=== PATIENT | male | born 1945 | race Hispanic/Latino ===

== ENCOUNTER 2016-06-19 18:05 | Inpatient (IN) | payer MEDICARE ==
--- NOTE | 2016-06-19 18:50 | Emergency Department Report ---
Addendum entered and electronically signed by CAM WYATT PA 06/20/16 16:06 : Blank Doc - Documentation Documentation: Addendum to physical exam: This is a 71-year-old male. Original Note: Chief Complaint: Weakness Stated Complaint: CANCER MEDS/COLD SX Time Seen by Provider: 06/19/16 18:46 - HPI History of Present Illness: Patient here reports that he is feeling weak and sleepy. He said he has left breast cancer and this is the fifth time that it's come back. He said Dr. Sommer who is his oncologist started him on Ibrance and symptoms started when he started taking this medication 20 days ago. He reports that he does not have any appetite. Dr. Sommer told patient to come to the emergency room. He denies any pain. Pain enough runny nose with some coughing. Denies any fever or chills. Denies any vomiting or diarrhea. PT has right Subclavian port - ROS Review of Systems: All systems are negative unless stated in HPI above - Exam Vital Signs: Vital Signs 06/19/16 18:30 Temperature 97.6 F Pulse Rate 114 H Respiratory 16 Rate Blood Pressure 134/96 O2 Sat by Pulse 100 Oximetry Physical Exam: This is a extend 11-year-old frail-looking man who is in no acute distress. Skin: Pale with poor turgor. Mouth: Lips are dry. CV: S1-S2, tachycardic at 114. The rhythm. Right port noted. MSE screening note: Focused history and physical exam performed. Due to findings the following was ordered:see mdm ED Medical Decision Making - Medical Decision Making Medical decision making: Patient seen by provider in triage area. Appropriate protocol activated and patient to main ED to be seen by physician. ED Disposition for MSE Condition: Stable
[2016-06-19 19:40] LABS: Eosinophils % (Auto) 0.9 % (0.0-4.3); Hematocrit 34.9 % (35.5-45.6); Hemoglobin 11.9 gm/dl (11.8-15.2); Mean Corpuscular HGB Conc 34 % (32-34); Mean Corpuscular Hemoglobin 27 pg (28-32); Mean Corpuscular Volume 78 fl (84-94); Red Blood Count 4.45 M/mm3 (3.65-5.03); Red Cell Distribution Width 13.8 % (13.2-15.2); White Blood Count 2.7 K/mm3 (4.5-11.0)
[2016-06-19 19:52] LABS: Alanine Aminotransferase 7 units/L (7-56); Albumin 3.9 g/dL (3.9-5); Albumin/Globulin Ratio 1.4 %; Alkaline Phosphatase 103 units/L (35-129); Anion Gap 21 mmol/L; BUN/Creatinine Ratio 15.45; Bilirubin,Total 0.7 mg/dL (0.1-1.2); Blood Urea Nitrogen 17 mg/dL (9-20); Calcium 8.7 mg/dL (8.4-10.2); Carbon Dioxide 23 mmol/L (22-30); Chloride 92.8 mmol/L (98-107); Glucose 133 mg/dL (75-100); Potassium 3.5 mmol/L (3.6-5.0); Sodium 133 mmol/L (137-145); Total Protein 6.7 g/dL (6.3-8.2)
[2016-06-19 20:08] LABS: Magnesium 1.9 mg/dL (1.7-2.3); Phosphorous 2.3 mg/dL (2.5-4.5)
[2016-06-19 20:33] LABS: Platelet Count 99 K/mm3 (140-440)
--- NOTE | 2016-06-20 04:27 | Emergency Department Report ---
ED General Adult HPI - General Chief complaint: Weakness Stated complaint: CANCER MEDS/COLD SX Time Seen by Provider: 06/19/16 18:46 Source: patient, RN notes reviewed Mode of arrival: Wheelchair Limitations: Physical Limitation - History of Present Illness Initial comments: This is a 71-year-old male, previously unknown to me. Has a history of breast cancer. Status post chemotherapy. Patient has a right-sided thoracic port. His oncologist is Dr. Sommer. Patient presents to the ER with generalized weakness, fatigue. Symptoms are constant. They've been going on for the past 3 days. They have no relieving factors. To me, the patient denies chest pain, abdominal pain, shortness of breath, fevers or chills. He is typically able to ambulate with a walker, and complete his activities of daily living without difficulty. He denies irritative and obstructive urinary symptoms. He reports a decline in his functional status over the past week. He is now in a wheelchair because of global weakness. There is no bladder or bowel retention or incontinence. There is no saddle anesthesia. -: Gradual, days(s) Severity scale (0 -10): 0 Consistency: constant Improves with: none Worsens with: none Associated Symptoms: loss of appetite, malaise, weakness. denies: confusion, diaphoresis, fever/chills - Related Data Home Medications Medication Instructions Recorded Confirmed Last Taken Aspirin [Aspirin TAB] 325 mg PO QDAY 06/20/16 06/20/16 Unknown Escitalopram Oxalate [Lexapro] 20 mg PO DAILY 06/20/16 06/20/16 Unknown Gabapentin [Neurontin] 300 mg PO QID PRN 06/20/16 06/20/16 Unknown Ibrance 300 mg PO DAILY 06/20/16 06/20/16 Unknown LORazepam [Ativan] 1 mg PO QHS PRN 06/20/16 06/20/16 Unknown Simvastatin [Zocor TAB] 20 mg PO QHS 06/20/16 06/20/16 Unknown Allergies Allergy/AdvReac Type Severity Reaction Status Date / Time No Known Allergies Allergy Unverified 06/19/16 18:30 ED Review of Systems ROS: Stated complaint: CANCER MEDS/COLD SX Other details as noted in HPI Constitutional: malaise, weakness Eyes: denies: vision change ENT: denies: epistaxis Respiratory: see HPI Cardiovascular: as per HPI Gastrointestinal: denies: abdominal pain Genitourinary: denies: urgency, dysuria Musculoskeletal: denies: back pain Skin: denies: lesions Neurological: weakness ED Past Medical Hx - Medications Home Medications: Home Medications Medication Instructions Recorded Confirmed Last Taken Type Aspirin [Aspirin TAB] 325 mg PO QDAY 06/20/16 06/20/16 Unknown History Escitalopram Oxalate [Lexapro] 20 mg PO DAILY 06/20/16 06/20/16 Unknown History Gabapentin [Neurontin] 300 mg PO QID PRN 06/20/16 06/20/16 Unknown History Ibrance 300 mg PO DAILY 06/20/16 06/20/16 Unknown History LORazepam [Ativan] 1 mg PO QHS PRN 06/20/16 06/20/16 Unknown History Simvastatin [Zocor TAB] 20 mg PO QHS 06/20/16 06/20/16 Unknown History ED Physical Exam - General Limitations: Physical Limitation General appearance: alert, in no apparent distress - Head Head exam: Present: atraumatic, normocephalic - Eye Eye exam: Present: normal appearance - ENT ENT exam: Present: normal exam, mucous membranes moist, normal external ear exam - Neck Neck exam: Present: normal inspection, full ROM. Absent: tenderness, meningismus - Respiratory Respiratory exam: Present: decreased breath sounds, other (right-sided thoracic wall port is noted). Absent: respiratory distress - Cardiovascular Cardiovascular Exam: Present: normal rhythm, tachycardia, normal heart sounds. Absent: systolic murmur, diastolic murmur, rubs, gallop - GI/Abdominal GI/Abdominal exam: Present: soft, normal bowel sounds. Absent: distended, tenderness, guarding, rebound, rigid, pulsatile mass - Rectal Rectal exam: Present: deferred - Extremities Exam Extremities exam: Present: normal inspection, full ROM, normal capillary refill , pedal edema. Absent: calf tenderness - Back Exam Back exam: Present: normal inspection, full ROM, paraspinal tenderness. Absent : tenderness, CVA tenderness (R), CVA tenderness (L), muscle spasm, vertebral tenderness - Neurological Exam Neurological exam: Present: alert, oriented X3, other (there is no facial droop. There is no facial droop. The tongue is midline. Extraocular movements are intact. Sensation is intact to light touch and pinprick and proprioception in 4 extremities. Downgoing plantar reflexes bilaterally. Extensor hallucis longus is intact bilaterally. Patient is able to lift both of his legs against gravity, however he is too weak to walk). Absent: motor sensory deficit - Psychiatric Psychiatric exam: Present: normal affect, normal mood - Skin Skin exam: Present: warm, dry, intact, normal color. Absent: rash ED Course Vital Signs 06/19/16 06/20/16 06/20/16 18:30 01:37 06:03 Temperature 97.6 F 97.6 F Pulse Rate 114 H 105 H 107 H Respiratory 16 18 10 L Rate Blood Pressure 134/96 Blood Pressure 160/106 [Right] O2 Sat by Pulse 100 100 96 Oximetry 06/20/16 06/20/16 06/20/16 06:22 07:00 07:27 Temperature Pulse Rate 100 H 99 H Respiratory 19 25 H Rate Blood Pressure 168/97 182/111 Blood Pressure [Right] O2 Sat by Pulse 100 96 96 Oximetry 06/20/16 06/20/16 06/20/16 08:01 09:00 09:36 Temperature Pulse Rate 102 H 110 H 108 H Respiratory 24 22 28 H Rate Blood Pressure 169/104 178/124 169/104 Blood Pressure [Right] O2 Sat by Pulse 95 96 Oximetry 06/20/16 06/20/16 06/20/16 10:00 11:00 12:00 Temperature Pulse Rate 105 H 105 H 108 H Respiratory 23 26 H 18 Rate Blood Pressure 134/84 155/98 167/115 Blood Pressure [Right] O2 Sat by Pulse 96 97 Oximetry 06/20/16 06/20/16 06/20/16 13:00 14:00 14:53 Temperature 98.8 F Pulse Rate 78 Respiratory Rate Blood Pressure 136/75 178/98 Blood Pressure [Right] O2 Sat by Pulse 96 Oximetry 06/20/16 06/20/16 06/20/16 15:00 16:00 17:00 Temperature Pulse Rate 95 H 99 H 100 H Respiratory 26 H 24 10 L Rate Blood Pressure 175/93 175/91 171/101 Blood Pressure [Right] O2 Sat by Pulse Oximetry 06/20/16 17:45 Temperature Pulse Rate 111 H Respiratory Rate Blood Pressure 171/101 Blood Pressure [Right] O2 Sat by Pulse Oximetry - Reevaluation(s) Reevaluation #1: 06/20/16 05:14 Differential diagnosis: Debility, urinary tract infection, pneumonia, chemotherapy side effect/iatrogenic effect Assessment and plan: 71-year-old male with global weakness. Chest x-ray suggests pneumonia. He is leukopenic. He is tachycardic. IV fluids, blood cultures, antibiotic therapy ordered. Chest x-ray demonstrates pneumonia. EKG is pending. Urinalysis is pending. Case is discussed with the Hospital physician, Dr. Davis, who accepts the patient to his service. ED Medical Decision Making - Lab Data Result diagrams: 06/19/16 19:15 06/19/16 19:15 Vital Signs 06/19/16 06/20/16 18:30 01:37 Temperature 97.6 F 97.6 F Pulse Rate 114 H 105 H Respiratory 16 18 Rate Blood Pressure 134/96 Blood Pressure 160/106 [Right] O2 Sat by Pulse 100 100 Oximetry Lab Results 06/19/16 06/19/16 06/19/16 Range/Units 19:15 19:15 19:15 WBC 2.7 L (4.5-11.0) K/mm3 RBC 4.45 (3.65-5.03) M/mm3 Hgb 11.9 (11.8-15.2) gm/dl Hct 34.9 L (35.5-45.6) % MCV 78 L (84-94) fl MCH 27 L (28-32) pg MCHC 34 (32-34) % RDW 13.8 (13.2-15.2) % Plt Count 99 L (140-440) K/mm3 Lymph % (Auto) 30.9 (13.4-35.0) % [place] % (Auto) 6.1 (0.0-7.3) % Eos % (Auto) 0.9 (0.0-4.3) % Baso % (Auto) 1.0 (0.0-1.8) % Lymph # 0.8 L (1.2-5.4) K/mm3 [place] # 0.2 (0.0-0.8) K/mm3 Eos # 0.0 (0.0-0.4) K/mm3 Baso # 0.0 (0.0-0.1) K/mm3 Seg Neutrophils % 61.1 (40.0-70.0) % Seg Neutrophils # 1.7 L (1.8-7.7) K/mm3 Sodium 133 L (137-145) mmol/L Potassium 3.5 L (3.6-5.0) mmol/L Chloride 92.8 L (98-107) mmol/L Carbon Dioxide 23 (22-30) mmol/L Anion Gap 21 mmol/L BUN 17 (9-20) mg/dL Creatinine 1.1 (0.8-1.5) mg/dL Estimated GFR > 60 ml/min BUN/Creatinine Ratio 15.45 % Glucose 133 H (75-100) mg/dL Calcium 8.7 (8.4-10.2) mg/dL Phosphorus 2.3 L (2.5-4.5) mg/dL Magnesium 1.9 (1.7-2.3) mg/dL Total Bilirubin 0.7 (0.1-1.2) mg/dL AST 16 (5-40) units/L ALT 7 (7-56) units/L Alkaline Phosphatase 103 (35-129) units/L Total Protein 6.7 (6.3-8.2) g/dL Albumin 3.9 (3.9-5) g/dL Albumin/Globulin Ratio 1.4 % Blood Type Antibody Screen 06/19/16 Range/Units 19:15 WBC (4.5-11.0) K/mm3 RBC (3.65-5.03) M/mm3 Hgb (11.8-15.2) gm/dl Hct (35.5-45.6) % MCV (84-94) fl MCH (28-32) pg MCHC (32-34) % RDW (13.2-15.2) % Plt Count (140-440) K/mm3 Lymph % (Auto) (13.4-35.0) % [place] % (Auto) (0.0-7.3) % Eos % (Auto) (0.0-4.3) % Baso % (Auto) (0.0-1.8) % Lymph # (1.2-5.4) K/mm3 [place] # (0.0-0.8) K/mm3 Eos # (0.0-0.4) K/mm3 Baso # (0.0-0.1) K/mm3 Seg Neutrophils % (40.0-70.0) % Seg Neutrophils # (1.8-7.7) K/mm3 Sodium (137-145) mmol/L Potassium (3.6-5.0) mmol/L Chloride (98-107) mmol/L Carbon Dioxide (22-30) mmol/L Anion Gap mmol/L BUN (9-20) mg/dL Creatinine (0.8-1.5) mg/dL Estimated GFR ml/min BUN/Creatinine Ratio % Glucose (75-100) mg/dL Calcium (8.4-10.2) mg/dL Phosphorus (2.5-4.5) mg/dL Magnesium (1.7-2.3) mg/dL Total Bilirubin (0.1-1.2) mg/dL AST (5-40) units/L ALT (7-56) units/L Alkaline Phosphatase (35-129) units/L Total Protein (6.3-8.2) g/dL Albumin (3.9-5) g/dL Albumin/Globulin Ratio % Blood Type AB POSITIVE Antibody Screen Negative - EKG Data 06/20/16 05:37 Limited by motion artifact. Sinus tachycardia, 106 bpm, poor R-wave progression , abnormal EKG, not morphologically consistent with STEMI. QTC 494 ms. - Radiology Data Radiology results: report reviewed, image reviewed Chest x-ray demonstrates right sided thoracic wall port. Left-sided infiltrate/ pneumonia/effusion is noted. Critical care attestation.: If time is entered above; I have spent that time in minutes in the direct care of this critically ill patient, excluding procedure time. ED Disposition Clinical Impression: Pneumonia, Leukopenia, History of breast cancer, Weakness Disposition: OP ADMITTED IP TO THIS HOSP Is pt being admited?: Yes Does the pt Need Aspirin: No Condition: Good
--- NOTE | 2016-06-20 05:07 | XRay Report ---
FINAL REPORT PROCEDURE: XR CHEST ROUTINE 2V TECHNIQUE: A portable AP chest radiograph was obtained at 06/19/2016 19:17 (EST) . CPT 22291 HISTORY: Weakness COMPARISON: No prior studies are available for comparison. FINDINGS: Heart: The heart is slightly enlarged.. Mediastinum/Vessels: Normal. Lungs/Pleural space: There are infiltrates and a small effusion at the left lung base. The right lung is clear and expanded. There are no pneumothoraces.. Bony thorax: No acute osseous abnormality. Life support devices: There is a right-sided Port-A-Cath. The tip is in the right internal jugular vein.. IMPRESSION: The heart is slightly enlarged.. There are infiltrates and a small effusion at the left lung base. The right lung is clear and expanded. There are no pneumothoraces.. There is a right-sided Port-A-Cath. The tip is in the right internal jugular vein.. .
[2016-06-20] MEDS ORDERED: LEVAQUIN 750MG/150ML 150 ML IV ONE (05:08)
[2016-06-20] MEDS ORDERED: NACL 0.9% 1000 ML IV ONE (06:00)
[2016-06-20 07:05] LABS: Bilirubin,Urine NEG (Negative); Blood,Urine SM (Negative); Ketones,Urine TR mg/dL (Negative); Leukocyte Esterase,Urine NEG (Negative); Mucus,Urine FEW /HPF; Nitrite,Urine NEG (Negative)
--- NOTE | 2016-06-20 07:51 | History and Physical Report ---
History of Present Illness History of present illness: 71 YO Male with Breast Cancer S/P Chemotherapy, Malnutrition presents to ED for evaluation. Pt states that he has been experiencing weakness, fatigue, and nonproductive cough for the past 3 days. Pt denies fever, chills, CP, Palpitations, NVD. Past History Past Medical History: cancer Past Surgical History: Other (Right Chest port) Social history: . denies: smoking, alcohol abuse, prescription drug abuse Family history: hypertension Medications and Allergies Allergies Allergy/AdvReac Type Severity Reaction Status Date / Time No Known Allergies Allergy Unverified 06/19/16 18:30 Home Medications Medication Instructions Recorded Confirmed Last Taken Type Aspirin [Aspirin TAB] 325 mg PO QDAY 06/20/16 06/20/16 Unknown History Escitalopram Oxalate [Lexapro] 20 mg PO DAILY 06/20/16 06/20/16 Unknown History Gabapentin [Neurontin] 300 mg PO QID PRN 06/20/16 06/20/16 Unknown History Ibrance 300 mg PO DAILY 06/20/16 06/20/16 Unknown History LORazepam [Ativan] 1 mg PO QHS PRN 06/20/16 06/20/16 Unknown History Simvastatin [Zocor TAB] 20 mg PO QHS 06/20/16 06/20/16 Unknown History Review of Systems All systems: negative Constitutional: fatigue, weakness Exam - Constitutional Vitals: Temp Pulse Resp BP Pulse Ox 97.6 F 100 H 19 168/97 96 06/20/16 01:37 06/20/16 07:00 06/20/16 07:00 06/20/16 07:00 06/20/16 07:00 General appearance: Present: mild distress, cachectic - EENT Eyes: Present: PERRL ENT: hearing intact, clear oral mucosa - Neck Neck: Present: supple, normal ROM - Respiratory Respiratory effort: normal Respiratory: bilateral: diminished - Cardiovascular Rhythm: regular Heart Sounds: Present: S1 & S2 Peripheral Pulses: within normal limits - Abdominal General gastrointestinal: Present: soft, non-tender, non-distended, normal bowel sounds Male genitourinary: Present: normal - Integumentary Integumentary: Present: clear, warm, dry - Musculoskeletal Musculoskeletal: generalized weakness - Psychiatric Psychiatric: appropriate mood/affect, cooperative - Neurologic Neurologic: CNII-XII intact Results - Labs CBC & Chem 7: 01/04/17 19:15 06/19/16 19:15 Labs: Abnormal lab results 06/19/16 06/19/16 06/19/16 Range/Units 19:15 19:15 19:15 WBC 2.7 L (4.5-11.0) K/mm3 Hct 34.9 L (35.5-45.6) % MCV 78 L (84-94) fl MCH 27 L (28-32) pg Plt Count 99 L (140-440) K/mm3 Lymph # 0.8 L (1.2-5.4) K/mm3 Seg Neutrophils # 1.7 L (1.8-7.7) K/mm3 Sodium 133 L (137-145) mmol/L Potassium 3.5 L (3.6-5.0) mmol/L Chloride 92.8 L (98-107) mmol/L Glucose 133 H (75-100) mg/dL Phosphorus 2.3 L (2.5-4.5) mg/dL Total Creatine Kinase (55-170) units/L 06/20/16 Range/Units 04:58 WBC (4.5-11.0) K/mm3 Hct (35.5-45.6) % MCV (84-94) fl MCH (28-32) pg Plt Count (140-440) K/mm3 Lymph # (1.2-5.4) K/mm3 Seg Neutrophils # (1.8-7.7) K/mm3 Sodium (137-145) mmol/L Potassium (3.6-5.0) mmol/L Chloride (98-107) mmol/L Glucose (75-100) mg/dL Phosphorus (2.5-4.5) mg/dL Total Creatine Kinase 287 H (55-170) units/L Assessment and Plan - Patient Problems (1) Pneumonia Current Visit: Yes Status: Acute Plan to address problem: Pneumonia protocol: IV abs, supportive care, blood cultures, supplemental oxygen , pulmonary toilet (2) History of breast cancer Current Visit: Yes Status: Chronic Plan to address problem: S/P chemotherapy. continue current care. (3) Weakness Current Visit: Yes Status: Acute Plan to address problem: supportive care, (4) DVT prophylaxis Current Visit: Yes Status: Acute
[2016-06-20] MEDS ORDERED: TYLENOL PO PRN (08:00)
--- NOTE | 2016-06-20 09:12 | Admit Criteria Form ---
Admission Criteria Documentation: PULMONARY DISEASE GRG Clinical Indications for Admission to Inpatient Care ( Place 'X' for any and all applicable criteria): Hospital admission is needed for appropriate care of the patient because of ANY ONE of the following(1): [ ]I. Impending or actual respiratory arrest ( Use Respiratory Failure Criteria for severe respiratory disease and long-term mechanical ventilation patients) (4) [ ]II. Severe airflow or ventilation abnormalities (not responsive to emergency and observation care treatment as appropriate) as indicated by ANY ONE of the following(5)(6)(7)(8) : [ ]a) PCO2 > 42 mm Hg (5.6 kPa) and pH < 7.35 (new) [ ]b) Documented PCO2 increase > 5 mm Hg (0.7 kPa) from disease baseline [ ]c) Airflow measurements[A] < 60% of previous best or predicted ( e.g., PEF <300 L/minute) despite intensive emergent treatment[B] [ ]d) Required respiratory treatments that are performable only in acute inpatient setting [ ]III. Severe respiratory findings (not responsive to emergency and observation care treatment as appropriate) including ANY ONE of the following(5)(8)(9): [ ]a) Respiratory distress as indicated by ALL of the following(5)(10): [ ]i) Patient with ANY ONE of the following: [ ]1) Dyspnea (difficulty breathing) [ ]2) Abnormal breathing pattern (eg, chest retractions) [ ]3) Tachypnea [ ]4) Other evidence of difficulty breathing [ ]ii) Evidence of respiratory compromise indicated by ANY ONE of the following: [ ]1) Hypoxemia [ ]2) Altered mental status [ ]3) Other evidence of respiratory compromise (eg, pulmonary edema on chest x-ray) [ ]b) Stridor [ ]c) Gross hemoptysis(11) [ ]d) Acute cyanosis [X ]IV. High-risk pulmonary infection as indicated by ANY ONE of the following (19)(20)(21)(22): [ ]a) Temperature less than 95 degrees F(35 degrees C) or greater than 103.1 degrees F(39.5 degrees C) [ ]b) Hemodynamic instability that remains after emergency or observation level care (as appropriate) [ ]c) Immunocompromised patient (eg, AIDS, post transplant, neutropenic) [ ]d) History of severe COPD [ ]e) History of severely symptomatic congestive heart failure [ ]f) Other high-risk comorbidity (eg, poorly controlled diabetes, cirrhosis, chronic renal insufficiency) [ ]g) Hypoxemia (new) [ X]h) Outpatient, observation, or recovery facility therapy has failed, is not appropriate, or is not feasible [ ]V. Severe atelectasis or lung collapse(15)(16) [ ]. Tuberculosis requiring inpatient treatment as indicated by ANY ONE of the following(17)(18): [ ]a) New positive acid-fast bacilli sputum smear [ ]b) Positive acid-fast bacilli smear (under current treatment), with ANY ONE of the following: [ ]i) Unexposed household contacts [ ]ii) Infants or immunosuppressed household contacts [ ]iii) Patient unable or unwilling to avoid exposing others [ ]iv) Severe immunocompromised patient (eg, AIDS, post transplant, neutropenic) [ ]VII. Empyema or lung abscess(13)(14) [ ]VIII. Severe pulmonary arterial hypertension or pulmonary vascular disease requiring inpatient care indicated by ANY ONE of the following(24)(25): [ ]a) Initiation or change of vasodilators (IV, subcutaneous, or inhaled) or other vasoactive medications needed [ ]b) IV anticoagulation needed (eg, immediate anticoagulation necessary, alternatives not appropriate) [ ]c) Arterial or pulmonary artery catheter monitoring needed due to infusion or other treatment [ ]IX. Chronic lung disease with severe deterioration (not responsive to emergency and observation care treatment as appropriate) as indicated by ANY ONE of the following (6)(12): [ ]a) SaO2 5% below baseline in patient with chronic hypoxemia [ ]b) New requirement for supplemental oxygen to keep SaO2 at baseline or acceptable level [ ]c) Required supplemental oxygen performable only in acute inpatient setting [ ]d) Severe airflow or ventilation abnormalities [ ]e) Rapid rate of exacerbation onset [ ]f) Previously mobile patient unable to walk between rooms [ ]g) Inability to eat or sleep due to dyspnea [ ]h) Altered mental status [ ]X. Cystic fibrosis with severe deterioration as indicated by ANY ONE of the following(26)(27): [ ]a) Severe exacerbation that does not respond to intensified home therapy [ ]b) Pneumonia [ ]c) Hemoptysis [ ]d) Atelectasis [ ]e) Pneumothorax [ ]f) Respiratory failure [ ]g) Severe exacerbation with patient unable to perform prescribed treatments at home [ ]XI. Severe right heart failure as indicated by ANY ONE of the following(24) (25): [ ]a) Increasing organ failure (eg, liver congestion with significant and worsening or new elevation of transaminases) [ ]b) Anasarca [ ]c) Angina that requires inpatient care (eg, not treatable in emergency or observation level of care) [ ]d) Respiratory distress [ ]e) Syncope [ ]f) SBP < 90 mm Hg (new) [ ]XII. Injury requiring inpatient care (medical) as indicated by ANY ONE of the following(28): [ ]a) Significant inhalation injury (eg, smoke inhalation, other toxic inhalation) (29)(30)(31) [ ]b) Airway obstruction that remains or is unstable after emergency or observation level care(32) [ ]c) Severe pain requiring acute inpatient management [ ]d) Lung contusion [ ]e) Bronchial tree injury [ ]f) Air or fat emboli(33) [ ]g) Other injury not treatable in emergency or observation level care (eg, hemothorax) (34) [ ]XIII. Pulmonary hemorrhage or significant hemoptysis(11)(35)(36) [ ]XIV. Inpatient palliative care needed[C](37)(38)(39)(40) [ ]XV. Complications of lung transplant (eg, rejection, failure, respiratory infection) (23) [ ]XVI. Pulmonary Disease and ANY ONE of the following: [ ]a) General Admission Criteria [ ]b) Pediatric General Admission Criteria The original [facility] [employer] content created by [facility] has been revised. The portions of the content which have been revised are identified through the use of italic text or in bold, and [facility] has neither reviewed nor approved the modified material. All other unmodified content is copyright [facility]. Please see references footnoted in the original [facility] edition 2016 Admission Criteria Met: Yes
[2016-06-20] MEDS: NACL 0.45% 1000 ML 1,000 ML IV SCH (12:28)
[2016-06-20] MEDS: APRESOLINE IV PRN (17:45)
[2016-06-20] MEDS ORDERED: APRESOLINE ONE (17:51)
--- NOTE | 2016-06-20 19:36 | Event Note ---
Date: 06/20/16 Patient's an ER in no acute distress continue current therapy.
[2016-06-20] MEDS: ZOCOR PO SCH (22:30)
[2016-06-21] MEDS: ATIVAN PO PRN (00:05)
[2016-06-21] MEDS: NEURONTIN PO PRN ×2 (00:05→12:57)
[2016-06-21 05:50] LABS: Hemoglobin 10.8 gm/dl (11.8-15.2); Mean Corpuscular HGB Conc 35 % (32-34); Mean Corpuscular Hemoglobin 27 pg (28-32); Mean Corpuscular Volume 79 fl (84-94); Red Blood Count 3.95 M/mm3 (3.65-5.03); Red Cell Distribution Width 13.6 % (13.2-15.2)
[2016-06-21 06:07] LABS: Blood Urea Nitrogen 9 mg/dL (9-20); Calcium 8.4 mg/dL (8.4-10.2); Carbon Dioxide 21 mmol/L (22-30); Glucose 104 mg/dL (75-100)
[2016-06-21 06:20] LABS: Platelet Count 74 K/mm3 (140-440)
[2016-06-21 06:25] LABS: White Blood Count 1.9 K/mm3 (4.5-11.0)
[2016-06-21 07:51] LABS: Anion Gap 19 mmol/L; Chloride 98.4 mmol/L (98-107); Potassium 3.2 mmol/L (3.6-5.0); Sodium 135 mmol/L (137-145)
[2016-06-21] MEDS ORDERED: K-DUR PO ONE ×2 (09:22→13:00)
[2016-06-21] MEDS: LEVAQUIN 500MG/100ML 100 ML IV SCH (12:57)
[2016-06-21] MEDS: ASPIRIN PO SCH (12:58)
--- NOTE | 2016-06-21 13:56 | Progress Note ---
Assessment and Plan Assessment and plan: Patient is a 42-year-old man with history of bilateral leg ulcers, functional quadriplegia, malnutrition and breast cancer status post chemotherapy under the care of her oncologist, Dr. Eulalio Sommer who presents with worsening nonproductive cough and shortness of breath. (1) Pneumonia, most likely aspiration pneumonia left lower lobe with sepsis present on admission Current Visit: Yes Status: Acute Plan to address problem: Pneumonia protocol: IV abs, supportive care, blood cultures, supplemental oxygen , pulmonary toilet (2) History of breast cancer Current Visit: Yes Status: Chronic Plan to address problem: S/P chemotherapy. continue current care. (3) Weakness Current Visit: Yes Status: Acute Plan to address problem: supportive care, ordered physical therapy (4) DVT prophylaxis Current Visit: Yes Status: Acute Full code, Disposition: Continue inpatient care anticipated discharge in 2 days History Interval history: Patient seen and examined. Follow up on cough and shortness of breath. Patient feels better. Overnight uneventful. No cp, abdominal pain, n/v or severe headaches. Imaging, old records, testing, labs, nursing notes reviewed. Hospitalist Physical - Physical exam Narrative exam: GEN: Thin frail chronically debilitated man, NAD, AWAKE, ALERT, ORIENTATED 3 HEENT: NCAT, PERRL, EOMI, OP CLEAR NECK: SUPPLE, NO THYROMEGALY, NO JVD, NO LAD CVS: Regular tachycardia, NORMAL S1S2 LUNGS/CHEST: Coarse breath sounds left lower lobe NORMAL CHEST EXPANSION B, diminished AIR ENTRY B ABD: SOFT NTND, GBS, NO REBOUND OR GUARDING EXT/SKIN: NO SIGNIFICANT EDEMA OR RASH MSK: Lower leg is contracted, functional quadriplegia NEURO: CN 2-12 GROSSLY INTACT, NO NEW FOCAL DEFICITS PSY: CALM - Constitutional Vitals: Temp Pulse Resp BP Pulse Ox 98.0 F 105 H 16 125/83 96 06/21/16 12:50 06/21/16 12:50 06/21/16 12:50 06/21/16 12:50 06/21/16 12:50 General appearance: Present: cachectic. Absent: mild distress Results - Labs CBC & Chem 7: 06/21/16 05:14 06/21/16 05:14 Labs: Laboratory Last Values WBC 1.9 K/mm3 (4.5-11.0) L* 06/21/16 05:14 RBC 3.95 M/mm3 (3.65-5.03) 06/21/16 05:14 Hgb 10.8 gm/dl (11.8-15.2) L 06/21/16 05:14 Hct 31.0 % (35.5-45.6) L 06/21/16 05:14 MCV 79 fl (84-94) L 06/21/16 05:14 MCH 27 pg (28-32) L 06/21/16 05:14 MCHC 35 % (32-34) H 06/21/16 05:14 RDW 13.6 % (13.2-15.2) 06/21/16 05:14 Plt Count 74 K/mm3 (140-440) L 06/21/16 05:14 Lymph % (Auto) 30.9 % (13.4-35.0) 06/19/16 19:15 [place] % (Auto) 6.1 % (0.0-7.3) 06/19/16 19:15 Eos % (Auto) 0.9 % (0.0-4.3) 06/19/16 19:15 Baso % (Auto) 1.0 % (0.0-1.8) 06/19/16 19:15 Lymph # 0.8 K/mm3 (1.2-5.4) L 06/19/16 19:15 [place] # 0.2 K/mm3 (0.0-0.8) 06/19/16 19:15 Eos # 0.0 K/mm3 (0.0-0.4) 06/19/16 19:15 Baso # 0.0 K/mm3 (0.0-0.1) 06/19/16 19:15 Seg Neutrophils % 61.1 % (40.0-70.0) 06/19/16 19:15 Seg Neutrophils # 1.7 K/mm3 (1.8-7.7) L 06/19/16 19:15 Sodium 135 mmol/L (137-145) L 06/21/16 05:14 Potassium 3.2 mmol/L (3.6-5.0) L 06/21/16 05:14 Chloride 98.4 mmol/L (98-107) 06/21/16 05:14 Carbon Dioxide 21 mmol/L (22-30) L 06/21/16 05:14 Anion Gap 19 mmol/L 06/21/16 05:14 BUN 9 mg/dL (9-20) 06/21/16 05:14 Creatinine 0.9 mg/dL (0.8-1.5) 06/21/16 05:14 Estimated GFR > 60 ml/min 06/21/16 05:14 BUN/Creatinine Ratio 10.00 % 06/21/16 05:14 Glucose 104 mg/dL (75-100) H 06/21/16 05:14 Lactic Acid 0.9 mmol/L (0.7-2.0) 06/20/16 04:58 Calcium 8.4 mg/dL (8.4-10.2) 06/21/16 05:14 Phosphorus 2.3 mg/dL (2.5-4.5) L 06/19/16 19:15 Magnesium 1.9 mg/dL (1.7-2.3) 06/19/16 19:15 Total Bilirubin 0.7 mg/dL (0.1-1.2) 06/19/16 19:15 AST 16 units/L (5-40) 06/19/16 19:15 ALT 7 units/L (7-56) 06/19/16 19:15 Alkaline Phosphatase 103 units/L (35-129) 06/19/16 19:15 Total Creatine Kinase 287 units/L (55-170) H 06/20/16 04:58 Total Protein 6.7 g/dL (6.3-8.2) 06/19/16 19:15 Albumin 3.9 g/dL (3.9-5) 06/19/16 19:15 Albumin/Globulin Ratio 1.4 % 06/19/16 19:15 Urine Color Yellow (Yellow) 06/20/16 06:39 Urine Turbidity Clear (Clear) 06/20/16 06:39 Urine pH 5.0 (5.0-7.0) 06/20/16 06:39 Ur Specific [place] 1.018 (1.003-1.030) 06/20/16 06:39 Urine Protein 30 mg/dl mg/dL (Negative) 06/20/16 06:39 Urine Glucose (UA) Neg mg/dL (Negative) 06/20/16 06:39 Urine Ketones Tr mg/dL (Negative) 06/20/16 06:39 Urine Blood Sm (Negative) 06/20/16 06:39 Urine Nitrite Neg (Negative) 06/20/16 06:39 Urine Bilirubin Neg (Negative) 06/20/16 06:39 Urine Urobilinogen 2.0 mg/dL (<2.0) 06/20/16 06:39 Ur Leukocyte Esterase Neg (Negative) 06/20/16 06:39 Urine WBC (Auto) 3.0 /HPF (0.0-6.0) 06/20/16 06:39 Urine RBC (Auto) 8.0 /HPF (0.0-6.0) 06/20/16 06:39 Urine Mucus Few /HPF 06/20/16 06:39 Blood Type AB POSITIVE 06/19/16 19:15 Antibody Screen Negative 06/19/16 19:15 - Imaging and Cardiology Chest x-ray: report reviewed
[2016-06-21] MEDS: PROVENTIL IH PRN (22:12)
[2016-06-21] MEDS: REGLAN IV PRN (22:21)
[2016-06-21] MEDS: PERCOCET 5/325 PO PRN (22:21)
[2016-06-21] MEDS: ZOCOR PO SCH (22:21)
[2016-06-22] MEDS ORDERED: PROVENTIL IH SCH
[2016-06-22] MEDS: PERCOCET 5/325 PO PRN ×2 (06:00→22:50)
[2016-06-22] MEDS: NACL 0.45% 1000 ML 1,000 ML IV SCH (06:21)
[2016-06-22] MEDS: APRESOLINE IV PRN ×2 (06:49→16:20)
[2016-06-22] MEDS: ATIVAN PO PRN (07:39)
[2016-06-22] MEDS: PROVENTIL IH PRN (07:41)
[2016-06-22] MEDS: ASPIRIN PO SCH (12:10)
[2016-06-22] MEDS: LEVAQUIN 500MG/100ML 100 ML IV SCH (12:10)
--- NOTE | 2016-06-22 15:25 | Progress Note ---
Assessment and Plan Assessment and plan: Patient is a 42-year-old man with history of bilateral leg ulcers, functional quadriplegia, malnutrition and breast cancer status post chemotherapy under the care of her oncologist, Dr. Eulalio Sommer who presents with worsening nonproductive cough and shortness of breath. (1) Pneumonia, most likely aspiration pneumonia left lower lobe with sepsis present on admission Current Visit: Yes Status: Acute Plan to address problem: Pneumonia protocol: IV abs, supportive care, blood cultures, supplemental oxygen , pulmonary toilet (2) History of breast cancer Current Visit: Yes Status: Chronic Plan to address problem: S/P chemotherapy. continue current care. (3) Weakness Current Visit: Yes Status: Acute Plan to address problem: supportive care, ordered physical therapy (4) DVT prophylaxis Current Visit: Yes Status: Acute Full code, Disposition: Continue inpatient care anticipated discharge in 2 days add duo-neb, stop ivf, recheck cxr History Interval history: Patient seen and examined. Follow up on cough and shortness of breath. Patient feels better. Overnight uneventful. No cp, abdominal pain, n/v or severe headaches. Imaging, old records, testing, labs, nursing notes reviewed. Hospitalist Physical - Physical exam Narrative exam: GEN: Thin frail chronically debilitated man, NAD, AWAKE, ALERT, ORIENTATED 3 HEENT: NCAT, PERRL, EOMI, OP CLEAR NECK: SUPPLE, NO THYROMEGALY, NO JVD, NO LAD CVS: Regular tachycardia, NORMAL S1S2 LUNGS/CHEST: Coarse breath sounds left lower lobe NORMAL CHEST EXPANSION B, diminished AIR ENTRY B ABD: SOFT NTND, GBS, NO REBOUND OR GUARDING EXT/SKIN: NO SIGNIFICANT EDEMA OR RASH MSK: Lower leg is contracted, functional quadriplegia NEURO: CN 2-12 GROSSLY INTACT, NO NEW FOCAL DEFICITS PSY: CALM - Constitutional Vitals: Temp Pulse Resp BP Pulse Ox 98.4 F 119 H 20 152/84 94 06/22/16 07:51 06/22/16 07:51 06/22/16 07:51 06/22/16 07:51 06/22/16 07:51 General appearance: Present: cachectic. Absent: mild distress Results - Labs CBC & Chem 7: 06/21/16 05:14 06/21/16 05:14 Labs: Laboratory Last Values WBC 1.9 K/mm3 (4.5-11.0) L* 06/21/16 05:14 RBC 3.95 M/mm3 (3.65-5.03) 06/21/16 05:14 Hgb 10.8 gm/dl (11.8-15.2) L 06/21/16 05:14 Hct 31.0 % (35.5-45.6) L 06/21/16 05:14 MCV 79 fl (84-94) L 06/21/16 05:14 MCH 27 pg (28-32) L 06/21/16 05:14 MCHC 35 % (32-34) H 06/21/16 05:14 RDW 13.6 % (13.2-15.2) 06/21/16 05:14 Plt Count 74 K/mm3 (140-440) L 06/21/16 05:14 Lymph % (Auto) 30.9 % (13.4-35.0) 06/19/16 19:15 [place] % (Auto) 6.1 % (0.0-7.3) 06/19/16 19:15 Eos % (Auto) 0.9 % (0.0-4.3) 06/19/16 19:15 Baso % (Auto) 1.0 % (0.0-1.8) 06/19/16 19:15 Lymph # 0.8 K/mm3 (1.2-5.4) L 06/19/16 19:15 [place] # 0.2 K/mm3 (0.0-0.8) 06/19/16 19:15 Eos # 0.0 K/mm3 (0.0-0.4) 06/19/16 19:15 Baso # 0.0 K/mm3 (0.0-0.1) 06/19/16 19:15 Seg Neutrophils % 61.1 % (40.0-70.0) 06/19/16 19:15 Seg Neutrophils # 1.7 K/mm3 (1.8-7.7) L 06/19/16 19:15 Sodium 135 mmol/L (137-145) L 06/21/16 05:14 Potassium 3.2 mmol/L (3.6-5.0) L 06/21/16 05:14 Chloride 98.4 mmol/L (98-107) 06/21/16 05:14 Carbon Dioxide 21 mmol/L (22-30) L 06/21/16 05:14 Anion Gap 19 mmol/L 06/21/16 05:14 BUN 9 mg/dL (9-20) 06/21/16 05:14 Creatinine 0.9 mg/dL (0.8-1.5) 06/21/16 05:14 Estimated GFR > 60 ml/min 06/21/16 05:14 BUN/Creatinine Ratio 10.00 % 06/21/16 05:14 Glucose 104 mg/dL (75-100) H 06/21/16 05:14 Lactic Acid 0.9 mmol/L (0.7-2.0) 06/20/16 04:58 Calcium 8.4 mg/dL (8.4-10.2) 06/21/16 05:14 Phosphorus 2.3 mg/dL (2.5-4.5) L 06/19/16 19:15 Magnesium 1.9 mg/dL (1.7-2.3) 06/19/16 19:15 Total Bilirubin 0.7 mg/dL (0.1-1.2) 06/19/16 19:15 AST 16 units/L (5-40) 06/19/16 19:15 ALT 7 units/L (7-56) 06/19/16 19:15 Alkaline Phosphatase 103 units/L (35-129) 06/19/16 19:15 Total Creatine Kinase 287 units/L (55-170) H 06/20/16 04:58 Total Protein 6.7 g/dL (6.3-8.2) 06/19/16 19:15 Albumin 3.9 g/dL (3.9-5) 06/19/16 19:15 Albumin/Globulin Ratio 1.4 % 06/19/16 19:15 Urine Color Yellow (Yellow) 06/20/16 06:39 Urine Turbidity Clear (Clear) 06/20/16 06:39 Urine pH 5.0 (5.0-7.0) 06/20/16 06:39 Ur Specific [place] 1.018 (1.003-1.030) 06/20/16 06:39 Urine Protein 30 mg/dl mg/dL (Negative) 06/20/16 06:39 Urine Glucose (UA) Neg mg/dL (Negative) 06/20/16 06:39 Urine Ketones Tr mg/dL (Negative) 06/20/16 06:39 Urine Blood Sm (Negative) 06/20/16 06:39 Urine Nitrite Neg (Negative) 06/20/16 06:39 Urine Bilirubin Neg (Negative) 06/20/16 06:39 Urine Urobilinogen 2.0 mg/dL (<2.0) 06/20/16 06:39 Ur Leukocyte Esterase Neg (Negative) 06/20/16 06:39 Urine WBC (Auto) 3.0 /HPF (0.0-6.0) 06/20/16 06:39 Urine RBC (Auto) 8.0 /HPF (0.0-6.0) 06/20/16 06:39 Urine Mucus Few /HPF 06/20/16 06:39 Blood Type AB POSITIVE 06/19/16 19:15 Antibody Screen Negative 06/19/16 19:15
[2016-06-22] MEDS ORDERED: ATIVAN PO PRN (17:19)
[2016-06-22] MEDS ORDERED: LASIX IV ONE (18:00)
[2016-06-22] MEDS: DUONEB 0.5 MG-3 MG/3 ML SOLN IH SCH ×2 (20:33)
[2016-06-22] MEDS: ZOCOR PO SCH (22:50)
[2016-06-23] MEDS: DUONEB 0.5 MG-3 MG/3 ML SOLN IH SCH ×5 (07:54→21:07)
[2016-06-23 08:04] LABS: Hematocrit 31.6 % (35.5-45.6); Hemoglobin 10.8 gm/dl (11.8-15.2); Mean Corpuscular HGB Conc 34 % (32-34); Mean Corpuscular Hemoglobin 28 pg (28-32); Mean Corpuscular Volume 81 fl (84-94); Red Blood Count 3.91 M/mm3 (3.65-5.03); Red Cell Distribution Width 14.3 % (13.2-15.2)
[2016-06-23 08:09] LABS: Platelet Count 76 K/mm3 (140-440); White Blood Count 1.9 K/mm3 (4.5-11.0)
[2016-06-23 08:17] LABS: Anion Gap 17 mmol/L; Blood Urea Nitrogen 11 mg/dL (9-20); Calcium 8.3 mg/dL (8.4-10.2); Carbon Dioxide 26 mmol/L (22-30); Chloride 98.1 mmol/L (98-107); Glucose 98 mg/dL (75-100); Potassium 3.9 mmol/L (3.6-5.0); Sodium 137 mmol/L (137-145)
[2016-06-23] MEDS: LEVAQUIN 500MG/100ML 100 ML IV SCH (09:42)
[2016-06-23] MEDS: ASPIRIN PO SCH (09:42)
--- NOTE | 2016-06-23 11:17 | XRay Report ---
AP chest History: Difficulty breathing. Findings: The left pleural effusion has decreased by one rib level since exam 3 days ago. Infiltrate or atelectasis in the left lower lobe is unchanged. The left upper lobe and right lung remain generally clear. Heart size and pulmonary vascularity are stable at the upper limits of normal. A right [id number] tracks superiorly to terminate in the right jugular vein at the level of C6. Impression: Mild improvement in left pleural effusion. Otherwise no change since the exam 3 days ago.
--- NOTE | 2016-06-23 12:37 | Progress Note ---
Assessment and Plan Assessment and plan: Patient is a 71 year-old man with a history of bilateral leg ulcers, functional quadriplegia, malnutrition and breast cancer status post chemotherapy under the care of her oncologist, Dr. Eulalio Sommer at [facility] (no prior EMR here) who presents with worsening nonproductive cough and shortness of breath. (1) Pneumonia, most likely aspiration pneumonia left lower lobe with sepsis present on admission Current Visit: Yes Status: Acute Plan to address problem: Pneumonia protocol: IV abs, supportive care, blood cultures, supplemental oxygen , pulmonary toilet (2) History of breast cancer Current Visit: Yes Status: Chronic Plan to address problem: S/P chemotherapy. continue current care. (3) Weakness Current Visit: Yes Status: Acute Plan to address problem: supportive care, ordered physical therapy (4) DVT prophylaxis Current Visit: Yes Status: Acute Full code, Disposition: Continue inpatient care anticipated discharge in 2 days added duo-neb which are helping, stopped ivf, cxr reviewed and shows improved left pleural effusion Added Ativan for increased anxiety Consulted hematology/oncology for pancytopenia History Interval history: Patient seen and examined. Follow up on cough and shortness of breath. Patient feels better but still short of breath. He also complains of increasing anxiety and wants his home 1 mg Ativan twice a day restarted. Overnight uneventful. No cp, abdominal pain, n/v or severe headaches. Imaging, old records , testing, labs, nursing notes reviewed. Hospitalist Physical - Physical exam Narrative exam: GEN: Thin frail chronically debilitated man, NAD, AWAKE, ALERT, ORIENTATED 3 CVS: Regular tachycardia, NORMAL S1S2 LUNGS/CHEST: Coarse breath sounds left lower lobe NORMAL CHEST EXPANSION B, diminished AIR ENTRY B ABD: SOFT NTND, GBS, NO REBOUND OR GUARDING EXT/SKIN: Bilateral heel ulcer stage III, present on admission MSK: Lower leg is contracted, functional quadriplegia NEURO: CN 2-12 GROSSLY INTACT, NO NEW FOCAL DEFICITS PSY: Anxiety - Constitutional Vitals: Temp Pulse Resp BP Pulse Ox 97.9 F 102 H 20 161/79 97 06/23/16 08:08 06/23/16 11:27 06/23/16 11:27 06/23/16 08:08 06/23/16 08:08 General appearance: Present: cachectic. Absent: mild distress Results - Labs CBC & Chem 7: 06/23/16 07:08 06/23/16 07:08 Labs: Laboratory Last Values WBC 1.9 K/mm3 (4.5-11.0) L* 06/23/16 07:08 RBC 3.91 M/mm3 (3.65-5.03) 06/23/16 07:08 Hgb 10.8 gm/dl (11.8-15.2) L 06/23/16 07:08 Hct 31.6 % (35.5-45.6) L 06/23/16 07:08 MCV 81 fl (84-94) L 06/23/16 07:08 MCH 28 pg (28-32) 06/23/16 07:08 MCHC 34 % (32-34) 06/23/16 07:08 RDW 14.3 % (13.2-15.2) 06/23/16 07:08 Plt Count 76 K/mm3 (140-440) L 06/23/16 07:08 Lymph % (Auto) 30.9 % (13.4-35.0) 06/19/16 19:15 [place] % (Auto) 6.1 % (0.0-7.3) 06/19/16 19:15 Eos % (Auto) 0.9 % (0.0-4.3) 06/19/16 19:15 Baso % (Auto) 1.0 % (0.0-1.8) 06/19/16 19:15 Lymph # 0.8 K/mm3 (1.2-5.4) L 06/19/16 19:15 [place] # 0.2 K/mm3 (0.0-0.8) 06/19/16 19:15 Eos # 0.0 K/mm3 (0.0-0.4) 06/19/16 19:15 Baso # 0.0 K/mm3 (0.0-0.1) 06/19/16 19:15 Seg Neutrophils % 61.1 % (40.0-70.0) 06/19/16 19:15 Seg Neutrophils # 1.7 K/mm3 (1.8-7.7) L 06/19/16 19:15 Sodium 137 mmol/L (137-145) 06/23/16 07:08 Potassium 3.9 mmol/L (3.6-5.0) D 06/23/16 07:08 Chloride 98.1 mmol/L (98-107) 06/23/16 07:08 Carbon Dioxide 26 mmol/L (22-30) 06/23/16 07:08 Anion Gap 17 mmol/L 06/23/16 07:08 BUN 11 mg/dL (9-20) 06/23/16 07:08 Creatinine 1.0 mg/dL (0.8-1.5) 06/23/16 07:08 Estimated GFR > 60 ml/min 06/23/16 07:08 BUN/Creatinine Ratio 11.00 % 06/23/16 07:08 Glucose 98 mg/dL (75-100) 06/23/16 07:08 Lactic Acid 0.9 mmol/L (0.7-2.0) 06/20/16 04:58 Calcium 8.3 mg/dL (8.4-10.2) L 06/23/16 07:08 Phosphorus 2.3 mg/dL (2.5-4.5) L 06/19/16 19:15 Magnesium 1.9 mg/dL (1.7-2.3) 06/19/16 19:15 Total Bilirubin 0.7 mg/dL (0.1-1.2) 06/19/16 19:15 AST 16 units/L (5-40) 06/19/16 19:15 ALT 7 units/L (7-56) 06/19/16 19:15 Alkaline Phosphatase 103 units/L (35-129) 06/19/16 19:15 Total Creatine Kinase 287 units/L (55-170) H 06/20/16 04:58 Total Protein 6.7 g/dL (6.3-8.2) 06/19/16 19:15 Albumin 3.9 g/dL (3.9-5) 06/19/16 19:15 Albumin/Globulin Ratio 1.4 % 06/19/16 19:15 Urine Color Yellow (Yellow) 06/20/16 06:39 Urine Turbidity Clear (Clear) 06/20/16 06:39 Urine pH 5.0 (5.0-7.0) 06/20/16 06:39 Ur Specific [place] 1.018 (1.003-1.030) 06/20/16 06:39 Urine Protein 30 mg/dl mg/dL (Negative) 06/20/16 06:39 Urine Glucose (UA) Neg mg/dL (Negative) 06/20/16 06:39 Urine Ketones Tr mg/dL (Negative) 06/20/16 06:39 Urine Blood Sm (Negative) 06/20/16 06:39 Urine Nitrite Neg (Negative) 06/20/16 06:39 Urine Bilirubin Neg (Negative) 06/20/16 06:39 Urine Urobilinogen 2.0 mg/dL (<2.0) 06/20/16 06:39 Ur Leukocyte Esterase Neg (Negative) 06/20/16 06:39 Urine WBC (Auto) 3.0 /HPF (0.0-6.0) 06/20/16 06:39 Urine RBC (Auto) 8.0 /HPF (0.0-6.0) 06/20/16 06:39 Urine Mucus Few /HPF 06/20/16 06:39 Blood Type AB POSITIVE 06/19/16 19:15 Antibody Screen Negative 06/19/16 19:15
--- NOTE | 2016-06-23 14:09 | Hem/Onc Consultation ---
History of Present Illness - Reason for Consult Consult date: 06/23/16 Requesting physician: MEGHA JANG - History of Present Illness Patient admitted with cough dyspnea weakness overall debility. Recently started in [facility] for Metastatic Breast Cancer. No complains currently. Past History Past Medical History: cancer (Breast cancer surgery 10 years ago treated with chemo. Very poor historian) Past Surgical History: Other (Right Chest port) Social history: . denies: smoking, alcohol abuse, prescription drug abuse Family history: hypertension Medications and Allergies Allergies Allergy/AdvReac Type Severity Reaction Status Date / Time No Known Allergies Allergy Unverified 06/19/16 18:30 Home Medications Medication Instructions Recorded Confirmed Last Taken Type Aspirin [Aspirin TAB] 325 mg PO QDAY 06/20/16 06/20/16 Unknown History Escitalopram Oxalate [Lexapro] 20 mg PO DAILY 06/20/16 06/20/16 Unknown History Gabapentin [Neurontin] 300 mg PO QID PRN 06/20/16 06/20/16 Unknown History Ibrance 300 mg PO DAILY 06/20/16 06/20/16 Unknown History LORazepam [Ativan] 1 mg PO QHS PRN 06/20/16 06/20/16 Unknown History Simvastatin [Zocor TAB] 20 mg PO QHS 06/20/16 06/20/16 Unknown History Active Meds: Active Medications Acetaminophen (Tylenol) 650 mg PO Q4H PRN PRN Reason: Pain MILD(1-3)/Fever >100.5/DEMARCO Last Admin: 06/21/16 19:02 Dose: 650 mg Albuterol (Proventil) 2.5 mg IH Q6HRT PRN PRN Reason: SOB, Congestion Last Admin: 06/22/16 07:41 Dose: 2.5 mg Albuterol/Ipratropium (Duoneb 0.5 Mg-3 Mg/3 Ml Soln) 1 ampul IH QIDRT [facility] Last Admin: 06/23/16 11:17 Dose: 1 ampul Aspirin (Aspirin) 325 mg PO QDAY [facility] Last Admin: 06/23/16 09:42 Dose: 325 mg Gabapentin (Neurontin) 300 mg PO QID PRN PRN Reason: Pain Last Admin: 06/21/16 12:57 Dose: 300 mg Hydralazine HCl (Apresoline) 10 mg IV Q6HR PRN PRN Reason: blood pressure Last Admin: 06/22/16 16:20 Dose: 10 mg Levofloxacin/Dextrose (Levaquin 500mg/100ml) 100 mls @ 100 mls/hr IV Q24HR TYRELL PRN Reason: Protocol Last Admin: 06/23/16 09:42 Dose: 100 mls/hr Lorazepam (Ativan) 1 mg PO Q4H PRN PRN Reason: Anxiety Last Admin: 06/22/16 18:03 Dose: 1 mg Lorazepam (Ativan) 1 mg PO BID [facility] Metoclopramide HCl (Reglan) 5 mg IV Q6H PRN PRN Reason: Nausea And Vomiting Last Admin: 06/21/16 22:21 Dose: 5 mg Oxycodone/Acetaminophen (Percocet 5/325) 1 tab PO Q4H PRN PRN Reason: Pain, Moderate (4-6) Last Admin: 06/22/16 22:50 Dose: 1 tab Simvastatin (Zocor) 20 mg PO QHS TYRELL Last Admin: 06/22/16 22:50 Dose: 20 mg Review of Systems All systems: negative (dyspnea and cough) Exam - Constitutional Vitals: Last Vital Signs Temp 97.9 F 06/23/16 08:08 Pulse 102 H 06/23/16 11:27 Resp 20 06/23/16 11:27 BP 161/79 06/23/16 08:08 Pulse Ox 97 06/23/16 08:08 Pain Intensity (0-10): denies any pain General appearance: mild distress Performance status: 2- selfcare, ambulatory - EENT Eyes: PERRL ENT: hearing intact Lymph node exam: bilateral cervical - Neck Neck: supple - Respiratory Respiratory effort: Positive: normal Respiratory: bilateral: CTA - Breasts Breasts: left: other (surgery scar) - Cardiovascular Rhythm: regular Heart Sounds: Present: S1 & S2 Extremity abnormal: ulceration - Gastrointestinal General gastrointestinal: Present: soft - Genitourinary Male genitourinary: Present: normal - Integumentary Integumentary: warm - Musculoskeletal Musculoskeletal: generalized weakness Results - Labs lab Results: Laboratory Results - last 24 hr 06/23/16 06/23/16 07:08 07:08 WBC 1.9 L* RBC 3.91 Hgb 10.8 L Hct 31.6 L MCV 81 L MCH 28 MCHC 34 RDW 14.3 Plt Count 76 L Sodium 137 Potassium 3.9 D Chloride 98.1 Carbon Dioxide 26 Anion Gap 17 BUN 11 Creatinine 1.0 Estimated GFR > 60 BUN/Creatinine Ratio 11.00 Glucose 98 Calcium 8.3 L - Imaging and cardiology Chest x-ray: report reviewed, image reviewed Assessment and Plan - Patient Problems (1) History of breast cancer Current Visit: Yes Status: Chronic Plan to address problem: He is treated actively by Dr woods with Ibrance. Suspect cytopenias are due to Ibrance and pneumonia. Neupogen started. and transfusions with platelets if < 20K or bleeding. He will follow up with his outpatient Med Onc. Stop Ibrance for now.
[2016-06-23] MEDS: ATIVAN PO SCH (21:10)
[2016-06-23] MEDS: ZOCOR PO SCH (21:10)
[2016-06-23] MEDS: PERCOCET 5/325 PO PRN (21:11)
[2016-06-23] MEDS: APRESOLINE IV PRN (21:11)
[2016-06-23] MEDS: REGLAN IV PRN (21:26)
[2016-06-24 08:20] LABS: Hematocrit 31.9 % (35.5-45.6); Hemoglobin 10.9 gm/dl (11.8-15.2); Mean Corpuscular HGB Conc 34 % (32-34); Mean Corpuscular Hemoglobin 28 pg (28-32); Mean Corpuscular Volume 81 fl (84-94); Red Blood Count 3.93 M/mm3 (3.65-5.03); Red Cell Distribution Width 14.3 % (13.2-15.2)
[2016-06-24 08:33] LABS: Anion Gap 16 mmol/L; Blood Urea Nitrogen 12 mg/dL (9-20); Calcium 8.7 mg/dL (8.4-10.2); Carbon Dioxide 28 mmol/L (22-30); Chloride 97.2 mmol/L (98-107); Glucose 103 mg/dL (75-100); Sodium 137 mmol/L (137-145)
[2016-06-24 08:45] LABS: Platelet Count 80 K/mm3 (140-440)
[2016-06-24] MEDS: GRANIX SUB-Q SCH (10:00)
[2016-06-24] MEDS: DUONEB 0.5 MG-3 MG/3 ML SOLN IH SCH ×3 (10:56→21:13)
[2016-06-24] MEDS ORDERED: PROVENTIL IH PRN (11:01)
[2016-06-24] MEDS: LEVAQUIN 500MG/100ML 100 ML IV SCH (11:24)
[2016-06-24] MEDS: ASPIRIN PO SCH (11:24)
[2016-06-24] MEDS: ATIVAN PO SCH ×2 (11:24→21:02)
--- NOTE | 2016-06-24 16:09 | Progress Note ---
Assessment and Plan Assessment and plan: Patient is a 71 year-old man with a history of bilateral leg ulcers, functional quadriplegia, malnutrition and breast cancer status post chemotherapy under the care of her oncologist, Dr. Eulalio Sommer at [facility] (no prior EMR here) who presents with worsening nonproductive cough and shortness of breath. (1) Pneumonia with parapneumonic effusion, most likely aspiration pneumonia left lower lobe with sepsis present on admission/ SOB continue abx Pneumonia protocol: IV abs, supportive care, blood cultures, supplemental oxygen , pulmonary toilet -added duo-neb which are helping, stopped ivf, cxr reviewed and shows improved left pleural effusion (2) metastatic of breast cancer S/P chemotherapy, currently on ibrance. continue current care; oncology input appreciated (3) Weakness supportive care, continue PT (4) Pancytopenia likely toxicity from chemo, continue to monitor, WBC actually trending up Full code, Disposition: Continue inpatient care anticipated discharge in 2 days History Interval history: continues to have cough and sob Hospitalist Physical - Physical exam Narrative exam: General: Patient appears well in no distress HEENT: MMM, EOMI cardiac: S1-S2 heard lungs: Rhonchorous breath sounds, no wheezing abdomen: soft, nontender, nondistended bowel sounds positive extremities: no edema clubbing or cyanosis Skin: no rash or lesion Neuro: no focal deficit Psych: appropriate behavior and mood, cognition intact - Constitutional Vitals: Temp Pulse Resp BP Pulse Ox 98.3 F 120 H 16 177/87 95 06/24/16 12:50 06/24/16 15:06 06/24/16 15:06 06/24/16 12:50 06/24/16 15:00 General appearance: Present: cachectic. Absent: mild distress Results - Labs CBC & Chem 7: 06/24/16 06:58 06/24/16 06:58 Labs: Laboratory Last Values WBC 2.0 K/mm3 (4.5-11.0) L 06/24/16 06:58 RBC 3.93 M/mm3 (3.65-5.03) 06/24/16 06:58 Hgb 10.9 gm/dl (11.8-15.2) L 06/24/16 06:58 Hct 31.9 % (35.5-45.6) L 06/24/16 06:58 MCV 81 fl (84-94) L 06/24/16 06:58 MCH 28 pg (28-32) 06/24/16 06:58 MCHC 34 % (32-34) 06/24/16 06:58 RDW 14.3 % (13.2-15.2) 06/24/16 06:58 Plt Count 80 K/mm3 (140-440) L 06/24/16 06:58 Lymph % (Auto) 30.9 % (13.4-35.0) 06/19/16 19:15 [place] % (Auto) 6.1 % (0.0-7.3) 06/19/16 19:15 Eos % (Auto) 0.9 % (0.0-4.3) 06/19/16 19:15 Baso % (Auto) 1.0 % (0.0-1.8) 06/19/16 19:15 Lymph # 0.8 K/mm3 (1.2-5.4) L 06/19/16 19:15 [place] # 0.2 K/mm3 (0.0-0.8) 06/19/16 19:15 Eos # 0.0 K/mm3 (0.0-0.4) 06/19/16 19:15 Baso # 0.0 K/mm3 (0.0-0.1) 06/19/16 19:15 Seg Neutrophils % 61.1 % (40.0-70.0) 06/19/16 19:15 Seg Neutrophils # 1.7 K/mm3 (1.8-7.7) L 06/19/16 19:15 Sodium 137 mmol/L (137-145) 06/24/16 06:58 Potassium 4.0 mmol/L (3.6-5.0) 06/24/16 06:58 Chloride 97.2 mmol/L (98-107) L 06/24/16 06:58 Carbon Dioxide 28 mmol/L (22-30) 06/24/16 06:58 Anion Gap 16 mmol/L 06/24/16 06:58 BUN 12 mg/dL (9-20) 06/24/16 06:58 Creatinine 1.0 mg/dL (0.8-1.5) 06/24/16 06:58 Estimated GFR > 60 ml/min 06/24/16 06:58 BUN/Creatinine Ratio 12.00 % 06/24/16 06:58 Glucose 103 mg/dL (75-100) H 06/24/16 06:58 Lactic Acid 0.9 mmol/L (0.7-2.0) 06/20/16 04:58 Calcium 8.7 mg/dL (8.4-10.2) 06/24/16 06:58 Phosphorus 2.3 mg/dL (2.5-4.5) L 06/19/16 19:15 Magnesium 1.9 mg/dL (1.7-2.3) 06/19/16 19:15 Total Bilirubin 0.7 mg/dL (0.1-1.2) 06/19/16 19:15 AST 16 units/L (5-40) 06/19/16 19:15 ALT 7 units/L (7-56) 06/19/16 19:15 Alkaline Phosphatase 103 units/L (35-129) 06/19/16 19:15 Total Creatine Kinase 287 units/L (55-170) H 06/20/16 04:58 Total Protein 6.7 g/dL (6.3-8.2) 06/19/16 19:15 Albumin 3.9 g/dL (3.9-5) 06/19/16 19:15 Albumin/Globulin Ratio 1.4 % 06/19/16 19:15 Urine Color Yellow (Yellow) 06/20/16 06:39 Urine Turbidity Clear (Clear) 06/20/16 06:39 Urine pH 5.0 (5.0-7.0) 06/20/16 06:39 Ur Specific [place] 1.018 (1.003-1.030) 06/20/16 06:39 Urine Protein 30 mg/dl mg/dL (Negative) 06/20/16 06:39 Urine Glucose (UA) Neg mg/dL (Negative) 06/20/16 06:39 Urine Ketones Tr mg/dL (Negative) 06/20/16 06:39 Urine Blood Sm (Negative) 06/20/16 06:39 Urine Nitrite Neg (Negative) 06/20/16 06:39 Urine Bilirubin Neg (Negative) 06/20/16 06:39 Urine Urobilinogen 2.0 mg/dL (<2.0) 06/20/16 06:39 Ur Leukocyte Esterase Neg (Negative) 06/20/16 06:39 Urine WBC (Auto) 3.0 /HPF (0.0-6.0) 06/20/16 06:39 Urine RBC (Auto) 8.0 /HPF (0.0-6.0) 06/20/16 06:39 Urine Mucus Few /HPF 06/20/16 06:39 Blood Type AB POSITIVE 06/19/16 19:15 Antibody Screen Negative 06/19/16 19:15
[2016-06-24] MEDS: APRESOLINE IV PRN (20:55)
[2016-06-24] MEDS: ZOCOR PO SCH (21:02)
[2016-06-24] MEDS ORDERED: ATIVAN PO SCH (22:00)
[2016-06-24] MEDS ORDERED: NEURONTIN PO SCH (22:00)
[2016-06-25] MEDS: DUONEB 0.5 MG-3 MG/3 ML SOLN IH SCH ×2 (08:08→14:04)
--- NOTE | 2016-06-25 09:36 | Discharge Summary ---
Providers - Providers Date of Admission: 06/20/16 07:52 Attending physician: FLORENTIN SUTHERLAND MD 06/23/16 12:33 Consult to Physician [CONS] Routine Consulting Provider: RUTHANN HERNANDEZ Reason For Exam: Pancytopenia Place consult to:: Dustin GUAMAN Notified:: [employer] Phone number called:: [phone] Was contact made?: Yes If yes, spoke with:: BRUCE Time called:: 12:45 Comment:: JONNATHAN NOTIFIED 06/24/16 19:04 Physical Therapy Evaluation and Treat [CONS] Routine Comment: Reason For Exam: debility Primary care physician: ANNA GUTIERREZ Hospitalization Condition: Good Hospital course: Patient is a 71 year-old man with a history of bilateral leg ulcers, functional quadriplegia, malnutrition and breast cancer status post chemotherapy under the care of her oncologist, Dr. Eulalio Gutierrez at [facility] (no prior EMR here) who presents with worsening nonproductive cough and shortness of breath. (1) Pneumonia with parapneumonic effusion, most likely aspiration pneumonia left lower lobe with sepsis present on admission/ SOB rx with abx, pulmonary toileting, clinically improved (2) metastatic of breast cancer to fup with his oncologist upon dc (3) Weakness received PT, he refused Rehab placement (4) Pancytopenia likely toxicity from chemo, improved during his hospitalization Disposition: DC/TX HOME UNDER HOME HEALTH Time spent for discharge: 35 minutes Core Measure Documentation - Palliative Care Palliative Care/ Comfort Measures: Not Applicable - Core Measures Any of the following diagnoses?: none Exam - Physical Exam Narrative exam: General: Patient appears well in no distress HEENT: MMM, EOMI cardiac: S1-S2 heard lungs: Rhonchorous breath sounds, no wheezing abdomen: soft, nontender, nondistended bowel sounds positive extremities: no edema clubbing or cyanosis, bilateral foot ulcers Skin: no rash Neuro: no focal deficit, bed bound Psych: appropriate behavior and mood, cognition intact - Constitutional Vitals: Temp Pulse Resp BP Pulse Ox 98.5 F 108 H 16 163/90 95 06/25/16 08:00 06/25/16 08:17 06/25/16 08:17 06/25/16 08:00 06/25/16 08:08 Plan Follow up with: PRIMARY CAREMD [Referring] - 3-5 Days Prescriptions: Aspirin EC [Aspirin Enteric Coated TAB] 81 mg PO QDAY #30 tablet. LORazepam [Ativan] 1 mg PO BID PRN #30 tablet PRN Reason: Anxiety oxyCODONE /ACETAMINOPHEN [Percocet 5/325 mg] 1 tab PO Q4H PRN #30 tablet PRN Reason: Pain, Moderate (4-6)
[2016-06-25] MEDS: GRANIX SUB-Q SCH (10:00)
[2016-06-25 10:05] LABS: Hematocrit 34.1 % (35.5-45.6); Hemoglobin 11.4 gm/dl (11.8-15.2); Mean Corpuscular HGB Conc 34 % (32-34); Mean Corpuscular Hemoglobin 28 pg (28-32); Mean Corpuscular Volume 82 fl (84-94); Red Blood Count 4.15 M/mm3 (3.65-5.03); White Blood Count 4.2 K/mm3 (4.5-11.0)
[2016-06-25 10:07] LABS: Platelet Count 70 K/mm3 (140-440)
[2016-06-25 10:09] LABS: Red Cell Distribution Width 14.2 % (13.2-15.2)
[2016-06-25] MEDS: LEVAQUIN 500MG/100ML 100 ML IV SCH (10:14)
[2016-06-25] MEDS: ATIVAN PO SCH (10:14)
[2016-06-25] MEDS: ASPIRIN PO SCH (10:14)
[2016-06-25 10:27] LABS: Anion Gap 19 mmol/L; Blood Urea Nitrogen 12 mg/dL (9-20); Calcium 8.5 mg/dL (8.4-10.2); Carbon Dioxide 25 mmol/L (22-30); Chloride 95.8 mmol/L (98-107); Glucose 116 mg/dL (75-100); Potassium 3.7 mmol/L (3.6-5.0); Sodium 136 mmol/L (137-145)
[2016-06-25 15:42] VITALS: BP 114/67
== END 2016-06-25 16:03 | disposition home health service (06) | DRG 871 ==
LOC: ED 18:05 → 3A 06-20 07:52
PROVIDERS: ADMIT Internal Medicine; ATTEND Internal Medicine
DX: A41.9 Sepsis, unspecified organism (principal); J69.0 Pneumonitis due to inhalation of food and vomit; R53.2 Functional quadriplegia; D61.810 Antineoplastic chemotherapy induced pancytopenia; E46 Unspecified protein-calorie malnutrition; F41.9 Anxiety disorder, unspecified; C50.929 Malignant neoplasm of unspecified site of unspecified male breast; T45.1X5A Adverse effect of antineoplastic and immunosuppressive drugs, initial encounter; Z79.899 Other long term (current) drug therapy; Z79.82 Long term (current) use of aspirin; Z85.3 Personal history of malignant neoplasm of breast; Z92.21 Personal history of antineoplastic chemotherapy; Z68.21 Body mass index [BMI] 21.0-21.9, adult; Z98.890 Other specified postprocedural states; Z82.49 Family history of ischemic heart disease and other diseases of the circulatory system
CPT/HCPCS: 36415; 51701; 71010; 71020; 80048; 80053; 81001; 82140; 82550; 83735; 84100; 85025; 85027; 86850; 86900; 86901; 87040; 93005; 93010; 94640; 94760; 96361; 96365; 96366; 96375; G8978-GP; G8979-GP; J0360; J1447; J1940; J1956; J2765; J7030

== ENCOUNTER 2016-07-02 17:53 | Inpatient (IN) | payer MEDICARE, OTHER ==
--- NOTE | 2016-07-02 19:44 | Emergency Department Report ---
Chief Complaint: Weakness Stated Complaint: WEAKNESS /LEGS Time Seen by Provider: 07/02/16 19:40 - HPI History of Present Illness: 71 y/o male complain of weakness .pt was discharge from the Er on friday -1 week ago -after spending a week for pneumonia. 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 - ROS Review of Systems: per HPI - Exam Vital Signs: Vital Signs 07/02/16 18:39 Temperature 97.8 F Pulse Rate 103 H Respiratory 20 Rate Blood Pressure 149/97 O2 Sat by Pulse 99 Oximetry Physical Exam: GENERAL: The patient is well-developed and well-nourished. Patient is in NAD. HENT: Normocephalic. Atraumatic. Patient has moist mucous membranes. Throat: No erythema, swelling or exudates. EYES: Extraocular motions are intact, PERRL NECK: Supple. No meningitic signs are noted. There is no adenopathy noted. CHEST/LUNGS: Clear to auscultation bilaterally. No wheezing, rales or rhonchi noted. There is no respiratory distress noted. HEART/CARDIOVASCULAR: Regular rate and rhythm. Normal S1 S2. No murmurs, rubs , clicks, or gallops. ABDOMEN: Abdomen is soft, nontender.. Bowel sounds normoactive. There is no abdominal distention. : Deferred. SKIN: There is no rash. There is no edema. There is no diaphoresis. NEURO: The patient is A&Ox3. The patient has no focal neurologic deficits. MUSCULOSKELETAL: There is no tenderness or deformity. There is no limitation range of motion. PSYCH: Pt has appropriate mood and affect. MSE screening note: Focused history and physical exam performed. Due to findings the following was ordered: ED Disposition for MSE Condition: Stable
[2016-07-02 20:19] LABS: Hematocrit 37.7 % (35.5-45.6); Hemoglobin 12.7 gm/dl (11.8-15.2); Mean Corpuscular HGB Conc 34 % (32-34); Mean Corpuscular Hemoglobin 29 pg (28-32); Mean Corpuscular Volume 85 fl (84-94); Platelet Count 214 K/mm3 (140-440); Red Blood Count 4.46 M/mm3 (3.65-5.03); White Blood Count 9.6 K/mm3 (4.5-11.0)
[2016-07-02 20:20] LABS: Red Cell Distribution Width 27.6 % (13.2-15.2)
[2016-07-02 20:37] LABS: BUN/Creatinine Ratio 12.22; Blood Urea Nitrogen 11 mg/dL (9-20); Calcium 9.2 mg/dL (8.4-10.2); Carbon Dioxide 26 mmol/L (22-30); Glucose 110 mg/dL (75-100); Potassium 4.4 mmol/L (3.6-5.0); Sodium 138 mmol/L (137-145)
[2016-07-02 20:48] LABS: Anion Gap 18 mmol/L
[2016-07-02 21:23] LABS: Basophils % (Manual) 0 % (0.0-1.8); Blastocytes % (Manual) 0 %; Eosinophils % (Manual) 0 % (0.0-4.3)
[2016-07-02 21:24] LABS: Anisocytosis 1+; Diff Status Complete; Poikilocytosis 1+
[2016-07-03] MEDS ORDERED: TYLENOL ONE (07:17)
[2016-07-03] MEDS ORDERED: TYLENOL PO ONE (07:21)
--- NOTE | 2016-07-03 09:29 | XRay Report ---
CHEST 2 VIEWS: INDICATION: Weakness. COMPARISON: 06/22/2016 FINDINGS: Frontal and lateral chest radiographs demonstrate grossly stable, though partly obscured cardiomediastinal silhouette due to left more than right [id number] lung hazy opacities, representing atelectasis/consolidation/pleural fluid. Left hemidiaphragm again obscured while right hemidiaphragm is now blurred. Stable right-sided chest port tip extending cephalad in the jugular vein proximally. An azygous lobe again noted. Stable bones. CONCLUSION: 1. Mild interval radiographic worsening of left more than right lower lung opacities/effusions, as described above. 2. Few other incidental findings, as above. Thank you for the opportunity to participate in this patient's care.
--- NOTE | 2016-07-03 09:59 | Emergency Department Report ---
HPI - General Chief Complaint: Weakness Time Seen by Provider: 07/03/16 09:25 - HPI HPI: Room 10 The patient is a 71-year-old male presenting with a chief complaint of shortness of breath. The patient was recently admitted and treated for pneumonia. The patient states since his discharge his complaint of shortness of breath chest tightness and fatigue. Patient states he "can't walk" secondary to weakness. The patient does admit to a slight cough but states that it is nonproductive. Patient denies any history of fever Location: Lungs Duration: 1.5 weeks Quality: Shortness of breath, weakness Severity: Moderate Modifying factors: [see above] Context: [see above] Mode of transportation: [not driving] ED Past Medical Hx - Past Medical History Previous Medical History?: Yes Hx Hypertension: Yes Hx of Cancer: Yes (breast) Additional medical history: PD Neuropathy, Pneumonia, chronic polyneuritis - Surgical History Past Surgical History?: Yes Hx Appendectomy: Yes Additional Surgical History: L. breast mastectomy - Family History Family history: no significant - Social History Smoking Status: Former Smoker Substance Use Type: Prescribed - Medications Home Medications: Home Medications Medication Instructions Recorded Confirmed Last Taken Type Escitalopram Oxalate [Lexapro] 20 mg PO DAILY 06/20/16 06/20/16 Unknown History Gabapentin [Neurontin] 300 mg PO QID PRN 06/20/16 06/20/16 Unknown History Ibrance 300 mg PO DAILY 06/20/16 06/20/16 Unknown History Simvastatin [Zocor TAB] 20 mg PO QHS 06/20/16 06/20/16 Unknown History Aspirin EC [Aspirin Enteric Coated 81 mg PO QDAY #30 tablet. 06/25/16 Unknown Rx TAB] LORazepam [Ativan] 1 mg PO BID PRN #30 tablet 06/25/16 Unknown Rx oxyCODONE /ACETAMINOPHEN [Percocet 1 tab PO Q4H PRN #30 tablet 06/25/16 Unknown Rx 5/325 mg] ED Review of Systems ROS: Stated complaint: WEAKNESS /LEGS Other details as noted in HPI Comment: All other systems reviewed and negative Constitutional: malaise, weakness. denies: fever Eyes: denies: eye pain, eye discharge, vision change ENT: denies: ear pain, throat pain Respiratory: cough, shortness of breath Cardiovascular: chest pain Endocrine: no symptoms reported Gastrointestinal: denies: abdominal pain, nausea, diarrhea Genitourinary: denies: urgency, dysuria Musculoskeletal: denies: back pain, joint swelling, arthralgia Skin: denies: rash, lesions Neurological: denies: headache, weakness, paresthesias Psychiatric: denies: anxiety, depression Hematological/Lymphatic: denies: easy bleeding, easy bruising Physical Exam - Physical Exam Vital Signs: Vital Signs 07/02/16 07/03/16 07/03/16 18:39 04:50 05:54 Temperature 97.8 F 98.4 F 98.6 F Pulse Rate 103 H 112 H 114 H Respiratory 20 18 20 Rate Blood Pressure 149/97 173/113 Blood Pressure 172/111 [Right] O2 Sat by Pulse 99 96 97 Oximetry 07/03/16 07/03/16 07:24 08:56 Temperature 98.9 F 98.3 F Pulse Rate 110 H 107 H Respiratory 20 20 Rate Blood Pressure 170/114 Blood Pressure 152/95 [Right] O2 Sat by Pulse 94 95 Oximetry Physical Exam: GENERAL: The patient is well-developed well-nourished male lying on stretcher not appearing to be in acute distress. [] HEENT: Normocephalic. Atraumatic. Extraocular motions are intact. Patient has moist mucous membranes. NECK: Supple. Trachea midline CHEST/LUNGS: Clear to auscultation. There is no respiratory distress noted. Slightly diminished breath sounds left base HEART/CARDIOVASCULAR: Regular. There is tachycardia. There is no gallop rub or murmur. ABDOMEN: Abdomen is soft, nontender. Patient has normal bowel sounds. There is no abdominal distention. SKIN: There is no rash. There is trace peripheral edema. There is no diaphoresis. NEURO: The patient is awake, alert, and oriented. The patient is cooperative. The patient has normal speech MUSCULOSKELETAL: There is no evidence of acute injury. ED Course Vital Signs 07/02/16 07/03/16 07/03/16 18:39 04:50 05:54 Temperature 97.8 F 98.4 F 98.6 F Pulse Rate 103 H 112 H 114 H Respiratory 20 18 20 Rate Blood Pressure 149/97 173/113 Blood Pressure 172/111 [Right] O2 Sat by Pulse 99 96 97 Oximetry 07/03/16 07/03/16 07:24 08:56 Temperature 98.9 F 98.3 F Pulse Rate 110 H 107 H Respiratory 20 20 Rate Blood Pressure 170/114 Blood Pressure 152/95 [Right] O2 Sat by Pulse 94 95 Oximetry ED Medical Decision Making - Lab Data Result diagrams: 07/02/16 20:04 07/02/16 20:04 Laboratory Tests 07/02/16 07/02/16 20:04 20:04 WBC 9.6 RBC 4.46 Hgb 12.7 Hct 37.7 MCV 85 MCH 29 MCHC 34 RDW 27.6 H Plt Count 214 Add Manual Diff Complete Total Counted 100 Seg Neuts % (Manual) 85.0 H Band Neutrophils % 0 Lymphocytes % (Manual) 6.0 L Reactive Lymphs % (Man) 0 Monocytes % (Manual) 9.0 H Eosinophils % (Manual) 0 Basophils % (Manual) 0 Metamyelocytes % 0 Myelocytes % 0 Promyelocytes % 0 Blast Cells % 0 Nucleated RBC % Not Reportable Seg Neutrophils # Man 8.2 H Band Neutrophils # 0.0 Lymphocytes # (Manual) 0.6 L Abs React Lymphs (Man) 0.0 Monocytes # (Manual) 0.9 H Eosinophils # (Manual) 0.0 Basophils # (Manual) 0.0 Metamyelocytes # 0.0 Myelocytes # 0.0 Promyelocytes # 0.0 Blast Cells # 0.0 WBC Morphology Not Reportable Hypersegmented Neuts Not Reportable Hyposegmented Neuts Not Reportable Hypogranular Neuts Not Reportable Smudge Cells Not Reportable Toxic Granulation Not Reportable Toxic Vacuolation Not Reportable Dohle Bodies Not Reportable Pelger-Huet Anomaly Not Reportable Miguel Rods Not Reportable Platelet Estimate Appears normal Clumped Platelets Not Reportable Plt Clumps, EDTA Not Reportable Large Platelets Not Reportable Giant Platelets Not Reportable Platelet Satelliting Not Reportable Plt Morphology Comment Not Reportable RBC Morphology Not Reportable Dimorphic RBCs Not Reportable Polychromasia Not Reportable Hypochromasia Not Reportable Poikilocytosis 1+ Anisocytosis 1+ Microcytosis Not Reportable Macrocytosis Not Reportable Spherocytes Not Reportable Pappenheimer Bodies Not Reportable Sickle Cells Not Reportable Target Cells Not Reportable Tear Drop Cells Not Reportable Ovalocytes Not Reportable Helmet Cells Not Reportable Hein-Mundelein Bodies Not Reportable [place] Rings Not Reportable Dalton Cells Not Reportable Bite Cells Not Reportable Crenated Cell Not Reportable Elliptocytes Not Reportable Acanthocytes (Spur) Not Reportable Rouleaux Not Reportable Hemoglobin C Crystals Not Reportable Schistocytes Not Reportable Malaria parasites Not Reportable Ricardo Bodies Not Reportable Hem Pathologist Commnt No Sodium 138 Potassium 4.4 Chloride 98.0 Carbon Dioxide 26 Anion Gap 18 BUN 11 Creatinine 0.9 Estimated GFR > 60 BUN/Creatinine Ratio 12.22 Glucose 110 H Calcium 9.2 - Radiology Data Radiology results: image reviewed (chest x-ray) interpreted by me: Chest x-ray-left pleural effusion slightly worsened when compared to previous chest x-ray dated 06/22/2016 - Differential Diagnosis pneumonia, pleural effusion Critical care attestation.: If time is entered above; I have spent that time in minutes in the direct care of this critically ill patient, excluding procedure time. ED Disposition Clinical Impression: Pneumonia, History of breast cancer, Weakness, Pleural effusion, left, Shortness of breath Disposition: OP ADMITTED IP TO THIS HOSP Is pt being admited?: Yes Does the pt Need Aspirin: Yes Condition: Fair Instructions: Bacterial Pneumonia (ED) Time of Disposition: 10:01 (hospitalist paged)
--- NOTE | 2016-07-03 10:09 | Admit Criteria Form ---
Admission Criteria Documentation: PLEURAL EFFUSION Clinical Indications for Admission to Inpatient Care (Place 'X' for any and all applicable criteria): Admission is indicated for ANY ONE of the following (1)(2)(3): [ ]I. Pneumonia-related effusion requiring drainage as indicated by ANY ONE of the following [A]: [ ]a) Large pleural effusion (symptomatic or greater than one-half of hemithorax) [ ]b) Loculated effusion [ ]c) Pleural thickening [ ]d) Pleural fluid analysis results, including ANY ONE of the following: [ ]i) Positive Gram stain or culture for bacteria [ ]ii) Pus [ ]iii) pH less than 7.20 [ X]II. Inpatient admission required rather than observation care (Also use Pleural Effusion: Observation Care criteria as appropriate) because of ANY ONE of the following: [ ]a) Hemodynamic instability that is severe or persistent [ ]b) Respiratory distress that is severe or persistent [ ]c) Complication of drainage (e.g., pneumothorax) that requires inpatient care [ ]d) Etiology that requires inpatient care (e.g., pulmonary embolism , trauma) [ ]e) Severe pain requiring acute inpatient management [ ]f) Supplemental O2 or respiration drug for over 24 hrs that are performable only in an inpatient setting [ ]g) Chest tube placement with active evacuation (e.g., suction, drainage) [ ]h) Pulmonary artery catheter monitoring [ ]i) Epidural analgesia (8) [ ]j) Continuous IV infusion of anticoagulation, platelet inhibitor, vasoactive, or antiarrhythmic medication. [X ]k) Other condition, treatment or monitoring requiring inpatient admission [ ]l) Immediate inpatient surgery [ ]III. Hemothorax [ ]IV. Empyema [ ]V. Pleural effusion with concomitant pneumothorax [ ]. Recurrent or malignant pleural effusion requiring pleurodesis (4) Extended stay beyond goal length of stay may be needed for (27)(28): [ ]a) Empyema or complicated parapneumonic effusion (24)(29) [ ]b) Malignant pleural effusion (4) [ ]c) Pleural effusion due to trauma or perforated esophagus [ ]d) Pleural effusion due to pulmonary embolism (30) [ ]e) Clinically significant re-expansion pulmonary edema [ ]f) Hemothorax [ ]g) Renal failure [ ]h) Trapped lung (e.g., benign or malignant thickened pleura preventing lung re-expansion) (31) [ ]i) Underlying etiology necessitates ongoing inpatient care (e.g., pneumonia, heart failure, malignancy) [ ]j) Complications of thoracentesis, thoracostomy tube, or pleural cath. placement The original [facility] content created by [facility] has been revised. The portions of the content which have been revised are identified through the use of italic text or in bold, and [facility] has neither reviewed nor approved the modified material. All other unmodified content is copyright [facility]. Please see references footnoted in the original [facility] [employer] edition 2016 Admission Criteria Met: Yes
[2016-07-03] MEDS ORDERED: NON-FORMULARY (Escitalopram Oxalate [Lexapro] 20 MG) PO SCH (10:45)
[2016-07-03 11:11] LABS: Alanine Aminotransferase 8 units/L (7-56); Albumin 3.9 g/dL (3.9-5); Albumin/Globulin Ratio 1.3 %; Alkaline Phosphatase 87 units/L (35-129); Anion Gap 22 mmol/L; Bilirubin,Total 0.7 mg/dL (0.1-1.2); Blood Urea Nitrogen 16 mg/dL (9-20); Calcium 9.1 mg/dL (8.4-10.2); Carbon Dioxide 23 mmol/L (22-30); Chloride 95.6 mmol/L (98-107); Glucose 102 mg/dL (75-100); Potassium 4.3 mmol/L (3.6-5.0); Sodium 136 mmol/L (137-145); Total Protein 6.8 g/dL (6.3-8.2)
[2016-07-03] MEDS: ATIVAN PO PRN (11:33)
[2016-07-03] MEDS: NEURONTIN PO PRN (11:33)
[2016-07-03] MEDS: APRESOLINE IV SCH ×4 (11:42→23:56)
[2016-07-03 16:06] LABS: Bilirubin,Urine NEG (Negative); Blood,Urine NEG (Negative); Ketones,Urine 80 mg/dL (Negative); Leukocyte Esterase,Urine NEG (Negative); Mucus,Urine FEW /HPF; Nitrite,Urine NEG (Negative)
[2016-07-03] MEDS: HALFPRIN EC PO SCH (16:42)
[2016-07-03] MEDS: LEXAPRO PO SCH (16:43)
--- NOTE | 2016-07-03 19:37 | History and Physical Report ---
History of Present Illness Date of examination: 07/03/16 Date of admission: 07/03/16 10:26 Chief complaint: Shortness of breath two day duration History of present illness: Patient is 71-year-old gentleman was a history of left breast cancer status post mastectomy, left pleural effusion, and pneumonia was discharged from the hospital about 2 weeks ago. Patient will use by himself and has a friend of her OBs this intermittently but was out of town for many days started having progressive shortness of breath while at home. Patient alsonoticed that he was no longer able to ambulate. He was therefore bedbound and home by himself. Short of breath was progressively getting worse. Denies any fever, chills, chest pain, orthopnea or paroxysmal nocturnal dyspnea. Patient's friend came over and found that patient was poor state and brought him to the emergency department. Chest x-ray showed worsening opacity and bilateral pleural effusion with the left worse than the right. Admission was therefore requested. Past History Past Medical History: hypertension, other (Left breast cancer status post mastectomy) Past Surgical History: mastectomy Social history: Lives alone. denies: smoking, alcohol abuse Family history: denies: cancer, hypertension, stroke Medications and Allergies Allergies Allergy/AdvReac Type Severity Reaction Status Date / Time No Known Allergies Allergy Unverified 06/19/16 18:30 Home Medications Medication Instructions Recorded Confirmed Last Taken Type Escitalopram Oxalate [Lexapro] 20 mg PO DAILY 06/20/16 06/20/16 Unknown History Gabapentin [Neurontin] 300 mg PO QID PRN 06/20/16 06/20/16 Unknown History Ibrance 300 mg PO DAILY 06/20/16 06/20/16 Unknown History Simvastatin [Zocor TAB] 20 mg PO QHS 06/20/16 06/20/16 Unknown History Aspirin EC [Aspirin Enteric Coated 81 mg PO QDAY #30 tablet. 06/25/16 Unknown Rx TAB] LORazepam [Ativan] 1 mg PO BID PRN #30 tablet 06/25/16 Unknown Rx oxyCODONE /ACETAMINOPHEN [Percocet 1 tab PO Q4H PRN #30 tablet 06/25/16 Unknown Rx 5/325 mg] Active Meds: Active Medications Aspirin (Halfprin Ec) 81 mg PO QDAY TRYELL Last Admin: 07/03/16 16:42 Dose: 81 mg Enoxaparin Sodium (Lovenox) 40 mg SUB-Q QDAY@2200 [facility] Escitalopram Oxalate (Lexapro) 20 mg PO DAILY [facility] Last Admin: 07/03/16 16:43 Dose: 20 mg Gabapentin (Neurontin) 300 mg PO QID PRN PRN Reason: Pain Last Admin: 07/03/16 11:33 Dose: 300 mg Hydralazine HCl (Apresoline) 10 mg IV Q4HR [facility] Last Admin: 07/03/16 18:33 Dose: Not Given Lorazepam (Ativan) 1 mg PO BID PRN PRN Reason: Anxiety Last Admin: 07/03/16 11:33 Dose: 1 mg Oxycodone/Acetaminophen (Percocet 5/325) 1 tab PO Q4H PRN PRN Reason: Pain, Moderate (4-6) Simvastatin (Zocor) 20 mg PO QHS [facility] Review of system Constitutional: Well Nouridhed and Well developed. Head: NC/ AT Eyes: Denies any visual impairments. No discharge from the eyes Nose: Denies any rhinorrhea or epistaxis Throats: Denies any post nasal drainage. Ears: Denies any hearing deficits Cardiovascular system: Denies any chest pain, shortness of breath, orthopnea, paroxysmal nocturnal dyspnea, or palpitation. Respiratory system: Has shortness of breath. Occasional cough. No wheezing, pleuritic chest pain, Gastrointestinal system: Denies any abdominal pain, nausea vomiting, hematemesis or melena. Neurological system: Denies any headache, slurred speech, facial droop, lateralizing weakness Genitalia system: Denies any dysuria, urinary frequency or urgency, urethral discharge Skin: No rashes, hyperpigmented spots. Hematological: Denies any cervical tenderness hemorrhages or petechia. Immunological: Denies any multiple septic spots, Lymphatic: Denies any generalized lymphadenopathy. Endocrine: Denies any polyuria, polydipsia, polyphagia. No heat or cold intolerance. Muscular skeletal system: Unable to ambulate or move both lower extremities Exam - Constitutional Vitals: Temp Pulse Resp BP Pulse Ox 98.5 F 106 H 18 126/87 98 07/03/16 18:51 07/03/16 18:51 07/03/16 18:51 07/03/16 18:51 07/03/16 18:51 General appearance: Present: no acute distress, well-nourished, other (bedbound , unable to move ambulates) - EENT Eyes: Present: PERRL ENT: hearing intact, clear oral mucosa - Neck Neck: Present: supple, normal ROM - Respiratory Respiratory effort: normal Respiratory: bilateral: diminished - Cardiovascular Heart Sounds: Present: S1 & S2. Absent: rub, click - Extremities Extremities: pulses symmetrical, No edema Peripheral Pulses: within normal limits - Abdominal General gastrointestinal: Present: soft, non-tender, non-distended, normal bowel sounds Male genitourinary: Present: normal - Integumentary Integumentary: Present: clear, warm, dry - Musculoskeletal Musculoskeletal: gait normal, strength equal bilaterally - Psychiatric Psychiatric: appropriate mood/affect, intact judgment & insight - Neurologic Neurologic: CNII-XII intact, moves all extremities Results - Labs CBC & Chem 7: 07/02/16 20:04 07/03/16 10:36 Labs: Abnormal lab results 07/03/16 Range/Units 10:36 Sodium 136 L (137-145) mmol/L Chloride 95.6 L (98-107) mmol/L Glucose 102 H (75-100) mg/dL Assessment and Plan 1. Pleural effusion: Consult material handler floorperson for possible pleural tap, Culture and cytology pleural fluid 2. Pneumonia: Commence patient on Zosyn and Levaquin and vancomycin as this is most likely healthcare acquired pneumonia 3. Inability to ambulate: PT OT evaluate. Case management consult for SNF 4. History of left breast cancer: Stable 5. DVT prophylaxis with Lovenox, GI with Pepcid. Spent 31 minutes in direct patient care review of laboratory data and discussion of management plan to patient's significant other - Patient Problems (1) Pleural effusion, left Current Visit: Yes Status: Acute (2) Pneumonia Current Visit: Yes Status: Acute (3) Shortness of breath Current Visit: Yes Status: Acute (4) History of breast cancer Current Visit: Yes Status: Chronic (5) DVT prophylaxis Current Visit: No Status: Acute
[2016-07-03] MEDS ORDERED: LEVAQUIN 500MG/100ML 100 ML IV SCH (20:00)
[2016-07-03] MEDS ORDERED: ZITHROMAX 500 MG in NACL 0.9% 250ML 250 ML IV SCH (21:00)
[2016-07-03] MEDS ORDERED: ROCEPHIN/NS 1 GM/50 ML 50 ML IV ONE (21:47)
[2016-07-03] MEDS: ROCEPHIN/NS 1 GM/50 ML 50 ML IV SCH (21:50)
[2016-07-03] MEDS: ZOCOR PO SCH (23:55)
[2016-07-03] MEDS: LOVENOX SUB-Q SCH (23:56)
[2016-07-03] MEDS: ZOSYN/NS 4.5GM/100ML 100 ML IV SCH (23:58)
[2016-07-04] MEDS: NEURONTIN PO PRN ×2 (01:03→21:08)
[2016-07-04] MEDS: ATIVAN PO PRN ×2 (01:03→21:08)
[2016-07-04] MEDS: APRESOLINE IV SCH ×5 (02:25→18:54)
[2016-07-04] MEDS: ZOSYN/NS 4.5GM/100ML 100 ML IV SCH ×3 (06:36→21:58)
[2016-07-04] MEDS: LEXAPRO PO SCH (10:07)
[2016-07-04] MEDS: HALFPRIN EC PO SCH (10:07)
[2016-07-04] MEDS: ROCEPHIN/NS 1 GM/50 ML 50 ML IV SCH (10:08)
[2016-07-04 11:12] LABS: Alanine Aminotransferase 6 units/L (7-56); Albumin 3.2 g/dL (3.9-5); Albumin/Globulin Ratio 1.3 %; Alkaline Phosphatase 67 units/L (35-129); Anion Gap 22 mmol/L; Bilirubin,Total 0.6 mg/dL (0.1-1.2); Blood Urea Nitrogen 18 mg/dL (9-20); Calcium 8.3 mg/dL (8.4-10.2); Carbon Dioxide 22 mmol/L (22-30); Chloride 98.9 mmol/L (98-107); Glucose 77 mg/dL (75-100); Sodium 139 mmol/L (137-145); Total Protein 5.7 g/dL (6.3-8.2)
--- NOTE | 2016-07-04 11:52 | Progress Note ---
Assessment and Plan Assessment and plan: 1. Pneumonia: Commence patient on Zosyn and Levaquin and vancomycin as this is most likely healthcare acquired pneumonia, but PNA has worsened despite completing abx from last admission, will obtain CT chest with IV contrast, fup Pulmonology consult 2 Inability to ambulate: PT OT evaluate. Case management consult for SNF 3. History of left breast cancer: on oral chemo, supportive care 4. DVT prophylaxis with Lovenox, GI with Pepcid. History Interval history: Continues to complain of cough with scant sputum production. Denies shortness of breath Hospitalist Physical - Physical exam Narrative exam: General: He appears chronically ill HEENT: MMM, EOMI cardiac: S1-S2 heard lungs: clear to auscultation, abdomen: soft, nontender, nondistended bowel sounds positive extremities: 1 plus bipedal edema, no clubbing or cyanosis Skin: no rash or lesion Neuro: no focal deficit, functionally bedbound Psych: appropriate behavior and mood, cognition intact - Constitutional Vitals: Temp Pulse Resp BP Pulse Ox 97.8 F 98 H 20 154/80 94 07/04/16 11:44 07/04/16 11:44 07/04/16 11:44 07/04/16 11:44 07/04/16 11:44 General appearance: Present: no acute distress, well-nourished, other (bedbound , unable to move ambulates) Results - Labs CBC & Chem 7: 07/05/16 16:41 07/05/16 10:05 Labs: Laboratory Last Values WBC 9.6 K/mm3 (4.5-11.0) 07/02/16 20:04 RBC 4.46 M/mm3 (3.65-5.03) 07/02/16 20:04 Hgb 12.7 gm/dl (11.8-15.2) 07/02/16 20:04 Hct 37.7 % (35.5-45.6) 07/02/16 20:04 MCV 85 fl (84-94) 07/02/16 20:04 MCH 29 pg (28-32) 07/02/16 20:04 MCHC 34 % (32-34) 07/02/16 20:04 RDW 27.6 % (13.2-15.2) H 07/02/16 20:04 Plt Count 214 K/mm3 (140-440) 07/02/16 20:04 Add Manual Diff Complete 07/02/16 20:04 Total Counted 100 07/02/16 20:04 Seg Neuts % (Manual) 85.0 % (40.0-70.0) H 07/02/16 20:04 Band Neutrophils % 0 % 07/02/16 20:04 Lymphocytes % (Manual) 6.0 % (13.4-35.0) L 07/02/16 20:04 Reactive Lymphs % (Man) 0 % 07/02/16 20:04 Monocytes % (Manual) 9.0 % (0.0-7.3) H 07/02/16 20:04 Eosinophils % (Manual) 0 % (0.0-4.3) 07/02/16 20:04 Basophils % (Manual) 0 % (0.0-1.8) 07/02/16 20:04 Metamyelocytes % 0 % 07/02/16 20:04 Myelocytes % 0 % 07/02/16 20:04 Promyelocytes % 0 % 07/02/16 20:04 Blast Cells % 0 % 07/02/16 20:04 Nucleated RBC % Not Reportable 07/02/16 20:04 Seg Neutrophils # Man 8.2 K/mm3 (1.8-7.7) H 07/02/16 20:04 Band Neutrophils # 0.0 K/mm3 07/02/16 20:04 Lymphocytes # (Manual) 0.6 K/mm3 (1.2-5.4) L 07/02/16 20:04 Abs React Lymphs (Man) 0.0 K/mm3 07/02/16 20:04 Monocytes # (Manual) 0.9 K/mm3 (0.0-0.8) H 07/02/16 20:04 Eosinophils # (Manual) 0.0 K/mm3 (0.0-0.4) 07/02/16 20:04 Basophils # (Manual) 0.0 K/mm3 (0.0-0.1) 07/02/16 20:04 Metamyelocytes # 0.0 K/mm3 07/02/16 20:04 Myelocytes # 0.0 K/mm3 07/02/16 20:04 Promyelocytes # 0.0 K/mm3 07/02/16 20:04 Blast Cells # 0.0 K/mm3 07/02/16 20:04 WBC Morphology Not Reportable 07/02/16 20:04 Hypersegmented Neuts Not Reportable 07/02/16 20:04 Hyposegmented Neuts Not Reportable 07/02/16 20:04 Hypogranular Neuts Not Reportable 07/02/16 20:04 Smudge Cells Not Reportable 07/02/16 20:04 Toxic Granulation Not Reportable 07/02/16 20:04 Toxic Vacuolation Not Reportable 07/02/16 20:04 Dohle Bodies Not Reportable 07/02/16 20:04 Pelger-Huet Anomaly Not Reportable 07/02/16 20:04 Miguel Rods Not Reportable 07/02/16 20:04 Platelet Estimate Appears normal 07/02/16 20:04 Clumped Platelets Not Reportable 07/02/16 20:04 Plt Clumps, EDTA Not Reportable 07/02/16 20:04 Large Platelets Not Reportable 07/02/16 20:04 Giant Platelets Not Reportable 07/02/16 20:04 Platelet Satelliting Not Reportable 07/02/16 20:04 Plt Morphology Comment Not Reportable 07/02/16 20:04 RBC Morphology Not Reportable 07/02/16 20:04 Dimorphic RBCs Not Reportable 07/02/16 20:04 Polychromasia Not Reportable 07/02/16 20:04 Hypochromasia Not Reportable 07/02/16 20:04 Poikilocytosis 1+ 07/02/16 20:04 Anisocytosis 1+ 07/02/16 20:04 Microcytosis Not Reportable 07/02/16 20:04 Macrocytosis Not Reportable 07/02/16 20:04 Spherocytes Not Reportable 07/02/16 20:04 Pappenheimer Bodies Not Reportable 07/02/16 20:04 Sickle Cells Not Reportable 07/02/16 20:04 Target Cells Not Reportable 07/02/16 20:04 Tear Drop Cells Not Reportable 07/02/16 20:04 Ovalocytes Not Reportable 07/02/16 20:04 Helmet Cells Not Reportable 07/02/16 20:04 Hein-Baskin Bodies Not Reportable 07/02/16 20:04 Linneus Rings Not Reportable 07/02/16 20:04 [place] Cells Not Reportable 07/02/16 20:04 Bite Cells Not Reportable 07/02/16 20:04 Crenated Cell Not Reportable 07/02/16 20:04 Elliptocytes Not Reportable 07/02/16 20:04 Acanthocytes (Spur) Not Reportable 07/02/16 20:04 Rouleaux Not Reportable 07/02/16 20:04 Hemoglobin C Crystals Not Reportable 07/02/16 20:04 Schistocytes Not Reportable 07/02/16 20:04 Malaria parasites Not Reportable 07/02/16 20:04 Ricardo Bodies Not Reportable 07/02/16 20:04 Hem Pathologist Commnt No 07/02/16 20:04 Sodium 139 mmol/L (137-145) 07/04/16 10:30 Potassium 4.0 mmol/L (3.6-5.0) 07/04/16 10:30 Chloride 98.9 mmol/L (98-107) 07/04/16 10:30 Carbon Dioxide 22 mmol/L (22-30) 07/04/16 10:30 Anion Gap 22 mmol/L 07/04/16 10:30 BUN 18 mg/dL (9-20) 07/04/16 10:30 Creatinine 1.0 mg/dL (0.8-1.5) 07/04/16 10:30 Estimated GFR > 60 ml/min 07/04/16 10:30 BUN/Creatinine Ratio 18.00 % 07/04/16 10:30 Glucose 77 mg/dL (75-100) 07/04/16 10:30 Hemoglobin A1c 6.0 % (4-6) 07/03/16 10:36 Lactic Acid 1.0 mmol/L (0.7-2.0) 07/03/16 10:36 Calcium 8.3 mg/dL (8.4-10.2) L 07/04/16 10:30 Total Bilirubin 0.6 mg/dL (0.1-1.2) 07/04/16 10:30 AST 15 units/L (5-40) 07/04/16 10:30 ALT 6 units/L (7-56) L 07/04/16 10:30 Alkaline Phosphatase 67 units/L (35-129) 07/04/16 10:30 Total Protein 5.7 g/dL (6.3-8.2) L 07/04/16 10:30 Albumin 3.2 g/dL (3.9-5) L 07/04/16 10:30 Albumin/Globulin Ratio 1.3 % 07/04/16 10:30 Urine Color Yellow (Yellow) 07/03/16 15:44 Urine Turbidity Clear (Clear) 07/03/16 15:44 Urine pH 5.0 (5.0-7.0) 07/03/16 15:44 Ur Specific [place] 1.025 (1.003-1.030) 07/03/16 15:44 Urine Protein 30 mg/dl mg/dL (Negative) 07/03/16 15:44 Urine Glucose (UA) Neg mg/dL (Negative) 07/03/16 15:44 Urine Ketones 80 mg/dL (Negative) 07/03/16 15:44 Urine Blood Neg (Negative) 07/03/16 15:44 Urine Nitrite Neg (Negative) 07/03/16 15:44 Urine Bilirubin Neg (Negative) 07/03/16 15:44 Urine Urobilinogen 2.0 mg/dL (<2.0) 07/03/16 15:44 Ur Leukocyte Esterase Neg (Negative) 07/03/16 15:44 Urine WBC (Auto) 2.0 /HPF (0.0-6.0) 07/03/16 15:44 Urine RBC (Auto) 6.0 /HPF (0.0-6.0) 07/03/16 15:44 U Epithel Cells (Auto) 1.0 /HPF (0-13.0) 07/03/16 15:44 Urine Mucus Few /HPF 07/03/16 15:44
--- NOTE | 2016-07-04 13:22 | Cat Scan Report ---
CT scan of chest with IV contrast: History: Cough, , lung mass, effusion Findings: There is no endobronchial or mediastinal mass. No mediastinal hilar or axillary adenopathy. No pericardial effusion. Large bilateral pleural effusion with compressive atelectasis of the adjacent lung parenchyma. Scarring is areas of discoid atelectasis left lung. No distinct mass. Impression: Large bilateral pleural effusion. Incidentally noted chronic compression fracture of what appears to be T3 vertebral body with suspicion of hemangioma T5 and T6.
[2016-07-04 16:57] LABS: Hematocrit 33.2 % (35.5-45.6); Hemoglobin 11.4 gm/dl (11.8-15.2); Mean Corpuscular HGB Conc 34 % (32-34); Mean Corpuscular Hemoglobin 29 pg (28-32); Mean Corpuscular Volume 85 fl (84-94); Platelet Count 203 K/mm3 (140-440); Red Blood Count 3.89 M/mm3 (3.65-5.03); White Blood Count 7.3 K/mm3 (4.5-11.0)
[2016-07-04 17:20] LABS: Red Cell Distribution Width 27.3 % (13.2-15.2)
--- NOTE | 2016-07-04 20:01 | Consultation ---
History of Present Illness Consult date: 07/04/16 Requesting physician: MELY BROWN Reason for consult: pleural effusion (bilateral) History of present illness: History of present illness: Patient is 71-year-old gentleman was a history of left breast cancer status post mastectomy, left pleural effusion, and pneumonia was discharged from the hospital about 2 weeks ago. He states he developed worsening shortness of breth since discharge. Patient also noticed that he was no longer able to ambulate. He was therefore bed bound and home by himself. His shortness of breath has progressively been getting worse. He denies any fever, chills, chest pain, orthopnea or paroxysmal nocturnal dyspnea. Patient's friend came over and found that patient was in a poor state and brought him to the emergency department. Chest x-ray showed worsening opacity and bilateral pleural effusion with the left worse than the right. Admission was therefore requested. We have been consulted to assist with his management. Past History Past Medical History: hypertension, other (Left breast cancer status post mastectomy) Past Surgical History: mastectomy Social history: Lives alone. denies: smoking, alcohol abuse. Quit smoking about 5 years ago. Smoked 2PPD for 7 years. Family history: denies: cancer, hypertension, stroke Medications and Allergies Allergies Allergy/AdvReac Type Severity Reaction Status Date / Time No Known Allergies Allergy Unverified 06/19/16 18:30 Home Medications Medication Instructions Recorded Confirmed Last Taken Type Escitalopram Oxalate [Lexapro] 20 mg PO DAILY 06/20/16 06/20/16 Unknown History Gabapentin [Neurontin] 300 mg PO QID PRN 06/20/16 06/20/16 Unknown History Ibrance 300 mg PO DAILY 06/20/16 06/20/16 Unknown History Simvastatin [Zocor TAB] 20 mg PO QHS 06/20/16 06/20/16 Unknown History Aspirin EC [Aspirin Enteric Coated 81 mg PO QDAY #30 tablet. 06/25/16 Unknown Rx TAB] LORazepam [Ativan] 1 mg PO BID PRN #30 tablet 06/25/16 Unknown Rx oxyCODONE /ACETAMINOPHEN [Percocet 1 tab PO Q4H PRN #30 tablet 06/25/16 Unknown Rx 5/325 mg] Active Meds: Active Medications Aspirin (Halfprin Ec) 81 mg PO QDAY TYRELL Last Admin: 07/03/16 16:42 Dose: 81 mg Enoxaparin Sodium (Lovenox) 40 mg SUB-Q QDAY@2200 [facility] Escitalopram Oxalate (Lexapro) 20 mg PO DAILY [facility] Last Admin: 07/03/16 16:43 Dose: 20 mg Gabapentin (Neurontin) 300 mg PO QID PRN PRN Reason: Pain Last Admin: 07/03/16 11:33 Dose: 300 mg Hydralazine HCl (Apresoline) 10 mg IV Q4HR [facility] Last Admin: 07/03/16 18:33 Dose: Not Given Lorazepam (Ativan) 1 mg PO BID PRN PRN Reason: Anxiety Last Admin: 07/03/16 11:33 Dose: 1 mg Oxycodone/Acetaminophen (Percocet 5/325) 1 tab PO Q4H PRN PRN Reason: Pain, Moderate (4-6) Simvastatin (Zocor) 20 mg PO QHS [facility] Review of system Constitutional: chronically ill looking Head: NC/ AT Eyes: Denies any visual impairments. No discharge from the eyes Nose: Denies any rhinorrhea or epistaxis Throats: Denies any post nasal drainage. Ears: Denies any hearing deficits Cardiovascular system: Denies any chest pain, shortness of breath, orthopnea, paroxysmal nocturnal dyspnea, or palpitation. Respiratory system: Has shortness of breath. Occasional cough. No wheezing, pleuritic chest pain, Gastrointestinal system: Denies any abdominal pain, nausea vomiting, hematemesis or melena. Neurological system: Denies any headache, slurred speech, facial droop, lateralizing weakness Genitalia system: Denies any dysuria, urinary frequency or urgency, urethral discharge Skin: No rashes, hyperpigmented spots. Hematological: Denies any cervical tenderness hemorrhages or petechia. Immunological: Denies any multiple septic spots, Lymphatic: Denies any generalized lymphadenopathy. Endocrine: Denies any polyuria, polydipsia, polyphagia. No heat or cold intolerance. Muscular skeletal system: Unable to ambulate or move both lower extremities, left upper extremity edema Past History Past Medical History: hypertension, other (Left breast cancer status post mastectomy) Past Surgical History: mastectomy Social history: Lives alone. denies: smoking, alcohol abuse Family history: denies: cancer, hypertension, stroke Medications and Allergies Allergies Allergy/AdvReac Type Severity Reaction Status Date / Time No Known Allergies Allergy Unverified 06/19/16 18:30 Home Medications Medication Instructions Recorded Confirmed Last Taken Type Escitalopram Oxalate [Lexapro] 20 mg PO DAILY 06/20/16 06/20/16 Unknown History Gabapentin [Neurontin] 300 mg PO QID PRN 06/20/16 06/20/16 Unknown History Ibrance 300 mg PO DAILY 06/20/16 06/20/16 Unknown History Simvastatin [Zocor TAB] 20 mg PO QHS 06/20/16 06/20/16 Unknown History Aspirin EC [Aspirin Enteric Coated 81 mg PO QDAY #30 tablet. 06/25/16 Unknown Rx TAB] LORazepam [Ativan] 1 mg PO BID PRN #30 tablet 06/25/16 Unknown Rx oxyCODONE /ACETAMINOPHEN [Percocet 1 tab PO Q4H PRN #30 tablet 06/25/16 Unknown Rx 5/325 mg] Active Meds: Active Medications Aspirin (Halfprin Ec) 81 mg PO QDAY [facility] Last Admin: 07/04/16 10:07 Dose: 81 mg Enoxaparin Sodium (Lovenox) 40 mg SUB-Q QDAY@2200 [facility] Last Admin: 07/03/16 23:56 Dose: 40 mg Escitalopram Oxalate (Lexapro) 20 mg PO DAILY [facility] Last Admin: 07/04/16 10:07 Dose: 20 mg Gabapentin (Neurontin) 300 mg PO QID PRN PRN Reason: Pain Last Admin: 07/04/16 01:03 Dose: 300 mg Hydralazine HCl (Apresoline) 10 mg IV Q4HR [facility] Last Admin: 07/04/16 18:54 Dose: Not Given Piperacillin Sod/Tazobactam Sod (Zosyn/Ns 4.5gm/100ml) 100 mls @ 200 mls/hr IV Q8H [facility] PRN Reason: Protocol Last Admin: 07/04/16 14:27 Dose: 200 mls/hr Lorazepam (Ativan) 1 mg PO BID PRN PRN Reason: Anxiety Last Admin: 07/04/16 01:03 Dose: 1 mg Oxycodone/Acetaminophen (Percocet 5/325) 1 tab PO Q4H PRN PRN Reason: Pain, Moderate (4-6) Simvastatin (Zocor) 20 mg PO QHS [facility] Last Admin: 07/03/16 23:55 Dose: 20 mg Physical Examination Vital signs: Vital Signs Temp Pulse Resp BP Pulse Ox 97.8 F 103 H 20 149/97 99 07/02/16 18:39 07/02/16 18:39 07/02/16 18:39 07/02/16 18:39 07/02/16 18:39 General appearance: appears uncomfortable Eyes: non-icteric ENT: oropharynx moist Neck: supple Effort: mildly labored Ascultation: Bilateral: diminished breath sounds Cardiovascular: regular rate and rhythm Gastrointestinal: normoactive bowel sounds, non-distended Integumentary: normal Extremities: edema Musculoskeletal: no deformities normal mental status, non-focal exam affect normal Results - Laboratory Findings CBC and BMP: 07/04/16 16:43 07/04/16 10:30 Abnormal lab findings: Abnormal Labs 07/03/16 07/04/16 07/04/16 10:36 10:30 16:43 Hgb 11.4 L Hct 33.2 L RDW 27.3 H Sodium 136 L Chloride 95.6 L Glucose 102 H Calcium 8.3 L ALT 6 L Total Protein 5.7 L Albumin 3.2 L - Diagnostic Findings Chest x-ray: report reviewed (bilateral effusions) Assessment and Plan - Patient Problems (1) Pleural effusion, bilateral Current Visit: Yes Status: Acute Plan to address problem: Patient had recent admission with pneumonia and has a history of breast cancer with >10 pack year history of smoking- will recommend diagnostic and therapeutic thoracentesis under image guidance. Results of pleural fluid analysis will determine next steps with management. (2) History of breast cancer Current Visit: Yes Status: Chronic (3) Weight loss of more than 10% body weight Current Visit: Yes Status: Acute Plan to address problem: Evaluate for malignancy and adult failure to thrive
[2016-07-04 20:40] LABS: Basophils % (Manual) 0 % (0.0-1.8); Blastocytes % (Manual) 0 %; Eosinophils % (Manual) 0 % (0.0-4.3)
[2016-07-04 20:42] LABS: Anisocytosis 1+; Burr Cells 1+; Polychromasia 1+
[2016-07-04 20:43] LABS: Diff Status Complete; Platelet Estimate Consistent w Auto
[2016-07-04] MEDS: ZOCOR PO SCH (21:08)
[2016-07-04] MEDS: LOVENOX SUB-Q SCH (21:08)
[2016-07-04] MEDS ORDERED: APRESOLINE IV PRN (21:12)
[2016-07-05] MEDS: ZOSYN/NS 4.5GM/100ML 100 ML IV SCH ×3 (05:35→21:33)
[2016-07-05 09:33] LABS: INR 1.09 (0.87-1.13)
--- NOTE | 2016-07-05 10:52 | Progress Note ---
Assessment and Plan - Patient Problems (1) Pleural effusion, bilateral Current Visit: Yes Status: Acute Plan to address problem: Patient had recent admission with pneumonia and has a history of breast cancer with >10 pack year history of smoking- will recommend diagnostic and therapeutic thoracentesis under image guidance. Results of pleural fluid analysis will determine next steps with management. (2) History of breast cancer Current Visit: Yes Status: Chronic (3) Weight loss of more than 10% body weight Current Visit: Yes Status: Acute Plan to address problem: Evaluate for malignancy and adult failure to thrive Subjective Date of service: 07/05/16 Objective - Exam Narrative Exam: General: He appears chronically ill HEENT: MMM, EOMI cardiac: S1-S2 heard lungs: clear to auscultation, abdomen: soft, nontender, nondistended bowel sounds positive extremities: bilateral lower extremity edema, no clubbing or cyanosis Skin: no rash or lesion Neuro: no focal deficit, functionally bed bound Psych: appropriate behavior and mood, cognition intact Vital Signs - 12hr 07/05/16 07/05/16 07/05/16 00:48 05:28 07:17 Temperature 98.9 F 98.0 F Pulse Rate Pulse Rate [ 95 H 95 H Apical] Respiratory 18 18 Rate Blood Pressure 156/75 136/74 [Right Arm] O2 Sat by Pulse 96 97 97 Oximetry 07/05/16 07/05/16 07:54 07:56 Temperature 98.2 F Pulse Rate 94 H Pulse Rate [ 94 H Apical] Respiratory 20 Rate Blood Pressure 128/81 [Right Arm] O2 Sat by Pulse 97 Oximetry Constitutional: appears uncomfortable Eyes: non-icteric ENT: oropharynx moist Neck: supple Effort: mildly labored Ascultation: Bilateral: diminished breath sounds Cardiovascular: regular rate and rhythm Gastrointestinal: normoactive bowel sounds, non-distended Integumentary: normal Extremities: edema Neurologic: normal mental status, non-focal exam Psychiatric: affect normal CBC and BMP: 07/04/16 16:43 07/04/16 10:30 ABG, PT/INR, D-dimer: PT/INR, D-dimer PT 14.0 Sec. (12.2-14.9) 07/05/16 08:48 INR 1.09 (0.87-1.13) 07/05/16 08:48 Abnormal lab findings: Abnormal Labs 07/03/16 07/04/16 07/04/16 10:36 10:30 16:43 Hgb 11.4 L Hct 33.2 L RDW 27.3 H Seg Neuts % (Manual) 76.0 H Lymphocytes % (Manual) 8.0 L Lymphocytes # (Manual) 0.6 L Sodium 136 L Chloride 95.6 L Glucose 102 H Calcium 8.3 L ALT 6 L Total Protein 5.7 L Albumin 3.2 L
[2016-07-05 10:55] LABS: Albumin/Globulin Ratio 1.2 %; BUN/Creatinine Ratio 16.66
[2016-07-05 11:24] LABS: Alanine Aminotransferase 8 units/L (7-56); Albumin 2.9 g/dL (3.9-5); Alkaline Phosphatase 59 units/L (35-129); Anion Gap 20 mmol/L; Bilirubin,Total 0.6 mg/dL (0.1-1.2); Blood Urea Nitrogen 15 mg/dL (9-20); Carbon Dioxide 22 mmol/L (22-30); Chloride 99.1 mmol/L (98-107); Glucose 68 mg/dL (75-100); Potassium 4.4 mmol/L (3.6-5.0); Sodium 137 mmol/L (137-145); Total Protein 5.4 g/dL (6.3-8.2)
[2016-07-05] MEDS: LEXAPRO PO SCH (13:44)
[2016-07-05] MEDS: HALFPRIN EC PO SCH (13:44)
[2016-07-05] MEDS: PERCOCET 5/325 PO PRN ×2 (13:44→21:32)
[2016-07-05 14:00] LABS: LDH,Body Fluid 86; Total Protein,Body Fluid 3.7 (15.0-45.0)
--- NOTE | 2016-07-05 14:13 | Ultrasound Report ---
ULTRASOUND THORACENTESIS INDICATION: Pleural effusion. COMPARISON: None similar. FINDINGS: Ultrasound guided left thoracentesis performed. Written informed consent obtained after explaining the risks and benefits. Patient brought in the ultrasound room. An appropriate skin site marked. Using standard sterile precautions and 1% lidocaine for local anesthesia, 5 Portuguese Yueh catheter advanced into the pleural fluid. Total of approximately 1.2 L of yellow serous fluid obtained with sample sent to the lab. Catheter removed and hemostasis achieved. Patient returned to his room. No immediate complications. CONCLUSION: Status post left thoracentesis, as described. A 2 hour post procedure chest x-ray ordered. Dr. Brenner present for and performed the entire procedure. Thank you for the opportunity to participate in this patient's care.
[2016-07-05 14:18] LABS: Basophils Body Fluid 0 %; Eosinophils Body Fluid 0 %; Reactive Lymph Body Fluid 0 %
--- NOTE | 2016-07-05 14:20 | Procedure Note ---
Date of procedure: 07/05/16 Pre-op diagnosis: Pleural effusion Post-op diagnosis: same Procedure: US guided left thoracentesis Findings: 1200 cc of yellow serous fluid removed. Anesthesia: local Surgeon: MARCIA SANCHEZ Estimated blood loss: none Specimen disposition: to lab Condition: stable Disposition: floor
[2016-07-05 16:58] LABS: Hematocrit 33.9 % (35.5-45.6); Hemoglobin 11.4 gm/dl (11.8-15.2); Mean Corpuscular HGB Conc 34 % (32-34); Mean Corpuscular Hemoglobin 29 pg (28-32); Mean Corpuscular Volume 85 fl (84-94); Platelet Count 190 K/mm3 (140-440); Red Blood Count 3.99 M/mm3 (3.65-5.03); White Blood Count 6.1 K/mm3 (4.5-11.0)
[2016-07-05 17:00] LABS: Red Cell Distribution Width 26.6 % (13.2-15.2)
--- NOTE | 2016-07-05 17:04 | XRay Report ---
PORTABLE CHEST INDICATION: Post left thoracentesis. COMPARISON: 07/02/2016 FINDINGS: Portable, frontal chest radiograph demonstrates significant clearing of left lower lung with mild residual atelectasis. No pneumothorax. Hazy right lower lung pleural effusion may be present. Normal cardiomediastinal silhouette. Stable azygous lobe and right chest port tip extending cephalad towards the neck. EKG leads. Stable bones, including advanced right shoulder degenerative changes. CONCLUSION: No evidence of pneumothorax following left thoracentesis with other findings, as above. Thank you for the opportunity to participate in this patient's care.
[2016-07-05 18:37] LABS: Basophils % (Manual) 0 % (0.0-1.8); Blastocytes % (Manual) 0 %; Eosinophils % (Manual) 0 % (0.0-4.3)
[2016-07-05 18:38] LABS: Elliptocytes 1+; Microcytosis 2+; Ovalocytes 1+
[2016-07-05 18:39] LABS: Burr Cells 1+; Diff Status Complete; Large Platelets 1+; Macrocytosis 1+; Platelet Estimate Consistent w Auto
[2016-07-05] MEDS: LOVENOX SUB-Q SCH (21:32)
[2016-07-05] MEDS: ZOCOR PO SCH (21:32)
[2016-07-05] MEDS: NEURONTIN PO PRN (21:32)
[2016-07-05] MEDS: ATIVAN PO PRN (21:32)
[2016-07-06] MEDS: ZOSYN/NS 4.5GM/100ML 100 ML IV SCH ×3 (05:44→21:09)
--- NOTE | 2016-07-06 08:25 | Progress Note ---
Assessment and Plan Assessment and plan: 1. Pneumonia: continue on Zosyn and Levaquin and vancomycin as this is most likely healthcare acquired pneumonia, but PNA has worsened despite completing abx from last admission, 2 Inability to ambulate: PT OT evaluate. Case management consult for SNF 3. History of left breast cancer: on oral chemo, supportive care 4. Bilateral Pleural effusion obtain thoracentesis and send fluid for analysis, pulmonology input appreciated concern for CHF as etiology, start IV lasix and obtain echocardiogram Dispo: to SNF when improved History Interval history: Continues to complain of cough with scant sputum production. Denies shortness of breath Hospitalist Physical - Physical exam Narrative exam: General: He appears chronically ill HEENT: MMM, EOMI cardiac: S1-S2 heard lungs: clear to auscultation, abdomen: soft, nontender, nondistended bowel sounds positive extremities: 1 plus bipedal edema, no clubbing or cyanosis Skin: no rash or lesion Neuro: no focal deficit, functionally bedbound Psych: appropriate behavior and mood, cognition intact - Constitutional Vitals: Temp Pulse Resp BP Pulse Ox 98.5 F 83 20 127/75 98 07/06/16 05:48 07/06/16 05:48 07/06/16 05:48 07/06/16 05:48 07/06/16 05:48 General appearance: Present: no acute distress, well-nourished, other (bedbound , unable to move ambulates) Results - Labs CBC & Chem 7: 07/05/16 16:41 07/05/16 10:05 Labs: Laboratory Last Values WBC 6.1 K/mm3 (4.5-11.0) 07/05/16 16:41 RBC 3.99 M/mm3 (3.65-5.03) 07/05/16 16:41 Hgb 11.4 gm/dl (11.8-15.2) L 07/05/16 16:41 Hct 33.9 % (35.5-45.6) L 07/05/16 16:41 MCV 85 fl (84-94) 07/05/16 16:41 MCH 29 pg (28-32) 07/05/16 16:41 MCHC 34 % (32-34) 07/05/16 16:41 RDW 26.6 % (13.2-15.2) H 07/05/16 16:41 Plt Count 190 K/mm3 (140-440) 07/05/16 16:41 Add Manual Diff Complete 07/05/16 16:41 Total Counted 100 07/05/16 16:41 Seg Neuts % (Manual) 89.0 % (40.0-70.0) H 07/05/16 16:41 Band Neutrophils % 0 % 07/05/16 16:41 Lymphocytes % (Manual) 7.0 % (13.4-35.0) L 07/05/16 16:41 Reactive Lymphs % (Man) 0 % 07/05/16 16:41 Monocytes % (Manual) 4.0 % (0.0-7.3) 07/05/16 16:41 Eosinophils % (Manual) 0 % (0.0-4.3) 07/05/16 16:41 Basophils % (Manual) 0 % (0.0-1.8) 07/05/16 16:41 Metamyelocytes % 0 % 07/05/16 16:41 Myelocytes % 0 % 07/05/16 16:41 Promyelocytes % 0 % 07/05/16 16:41 Blast Cells % 0 % 07/05/16 16:41 Nucleated RBC % Not Reportable 07/05/16 16:41 Seg Neutrophils # Man 5.4 K/mm3 (1.8-7.7) 07/05/16 16:41 Band Neutrophils # 0.0 K/mm3 07/05/16 16:41 Lymphocytes # (Manual) 0.4 K/mm3 (1.2-5.4) L 07/05/16 16:41 Abs React Lymphs (Man) 0.0 K/mm3 07/05/16 16:41 Monocytes # (Manual) 0.2 K/mm3 (0.0-0.8) 07/05/16 16:41 Eosinophils # (Manual) 0.0 K/mm3 (0.0-0.4) 07/05/16 16:41 Basophils # (Manual) 0.0 K/mm3 (0.0-0.1) 07/05/16 16:41 Metamyelocytes # 0.0 K/mm3 07/05/16 16:41 Myelocytes # 0.0 K/mm3 07/05/16 16:41 Promyelocytes # 0.0 K/mm3 07/05/16 16:41 Blast Cells # 0.0 K/mm3 07/05/16 16:41 WBC Morphology Not Reportable 07/05/16 16:41 Hypersegmented Neuts Not Reportable 07/05/16 16:41 Hyposegmented Neuts Not Reportable 07/05/16 16:41 Hypogranular Neuts Not Reportable 07/05/16 16:41 Smudge Cells Not Reportable 07/05/16 16:41 Toxic Granulation Not Reportable 07/05/16 16:41 Toxic Vacuolation Not Reportable 07/05/16 16:41 Dohle Bodies Not Reportable 07/05/16 16:41 Pelger-Huet Anomaly Not Reportable 07/05/16 16:41 Miguel Rods Not Reportable 07/05/16 16:41 Platelet Estimate Consistent w auto 07/05/16 16:41 Clumped Platelets Not Reportable 07/05/16 16:41 Plt Clumps, EDTA Not Reportable 07/05/16 16:41 Large Platelets 1+ 07/05/16 16:41 Giant Platelets Not Reportable 07/05/16 16:41 Platelet Satelliting Not Reportable 07/05/16 16:41 Plt Morphology Comment Not Reportable 07/05/16 16:41 RBC Morphology Not Reportable 07/05/16 16:41 Dimorphic RBCs Not Reportable 07/05/16 16:41 Polychromasia Not Reportable 07/05/16 16:41 Hypochromasia Not Reportable 07/05/16 16:41 Poikilocytosis Not Reportable 07/05/16 16:41 Anisocytosis Not Reportable 07/05/16 16:41 Microcytosis 2+ 07/05/16 16:41 Macrocytosis 1+ 07/05/16 16:41 Spherocytes Not Reportable 07/05/16 16:41 Pappenheimer Bodies Not Reportable 07/05/16 16:41 Sickle Cells Not Reportable 07/05/16 16:41 Target Cells Not Reportable 07/05/16 16:41 Tear Drop Cells Not Reportable 07/05/16 16:41 Ovalocytes 1+ 07/05/16 16:41 Helmet Cells Not Reportable 07/05/16 16:41 Hein-Goessel Bodies Not Reportable 07/05/16 16:41 [place] Rings Not Reportable 07/05/16 16:41 [place] Cells 1+ 07/05/16 16:41 Bite Cells Not Reportable 07/05/16 16:41 Crenated Cell Not Reportable 07/05/16 16:41 Elliptocytes 1+ 07/05/16 16:41 Acanthocytes (Spur) Not Reportable 07/05/16 16:41 Rouleaux Not Reportable 07/05/16 16:41 Hemoglobin C Crystals Not Reportable 07/05/16 16:41 Schistocytes Not Reportable 07/05/16 16:41 Malaria parasites Not Reportable 07/05/16 16:41 Ricardo Bodies Not Reportable 07/05/16 16:41 Hem Pathologist Commnt No 07/05/16 16:41 PT 14.0 Sec. (12.2-14.9) 07/05/16 08:48 INR 1.09 (0.87-1.13) 07/05/16 08:48 Sodium 137 mmol/L (137-145) 07/05/16 10:05 Potassium 4.4 mmol/L (3.6-5.0) 07/05/16 10:05 Chloride 99.1 mmol/L (98-107) 07/05/16 10:05 Carbon Dioxide 22 mmol/L (22-30) 07/05/16 10:05 Anion Gap 20 mmol/L 07/05/16 10:05 BUN 15 mg/dL (9-20) 07/05/16 10:05 Creatinine 0.9 mg/dL (0.8-1.5) 07/05/16 10:05 Estimated GFR > 60 ml/min 07/05/16 10:05 BUN/Creatinine Ratio 16.66 % 07/05/16 10:05 Glucose 68 mg/dL (75-100) L 07/05/16 10:05 Hemoglobin A1c 6.0 % (4-6) 07/03/16 10:36 Lactic Acid 0.8 mmol/L (0.7-2.0) 07/05/16 13:23 Calcium 8.0 mg/dL (8.4-10.2) L 07/05/16 10:05 Total Bilirubin 0.6 mg/dL (0.1-1.2) 07/05/16 10:05 AST 26 units/L (5-40) 07/05/16 10:05 ALT 8 units/L (7-56) 07/05/16 10:05 Alkaline Phosphatase 59 units/L (35-129) 07/05/16 10:05 Total Protein 5.4 g/dL (6.3-8.2) L 07/05/16 10:05 Albumin 2.9 g/dL (3.9-5) L 07/05/16 10:05 Albumin/Globulin Ratio 1.2 % 07/05/16 10:05 Urine Color Yellow (Yellow) 07/03/16 15:44 Urine Turbidity Clear (Clear) 07/03/16 15:44 Urine pH 5.0 (5.0-7.0) 07/03/16 15:44 Ur Specific White 1.025 (1.003-1.030) 07/03/16 15:44 Urine Protein 30 mg/dl mg/dL (Negative) 07/03/16 15:44 Urine Glucose (UA) Neg mg/dL (Negative) 07/03/16 15:44 Urine Ketones 80 mg/dL (Negative) 07/03/16 15:44 Urine Blood Neg (Negative) 07/03/16 15:44 Urine Nitrite Neg (Negative) 07/03/16 15:44 Urine Bilirubin Neg (Negative) 07/03/16 15:44 Urine Urobilinogen 2.0 mg/dL (<2.0) 07/03/16 15:44 Ur Leukocyte Esterase Neg (Negative) 07/03/16 15:44 Urine WBC (Auto) 2.0 /HPF (0.0-6.0) 07/03/16 15:44 Urine RBC (Auto) 6.0 /HPF (0.0-6.0) 07/03/16 15:44 U Epithel Cells (Auto) 1.0 /HPF (0-13.0) 07/03/16 15:44 Urine Mucus Few /HPF 07/03/16 15:44 Fluid Type Pleural 07/05/16 Unknown Fluid Color Yellow 07/05/16 Unknown Fluid Appearance Hazy 07/05/16 Unknown Fluid WBC 698 /mm3 07/05/16 Unknown Fluid RBC 2318 /mm3 07/05/16 Unknown Fluid Seg Neutrophils 2.0 % 07/05/16 Unknown Fluid Lymphocytes 42.0 % 07/05/16 Unknown Fluid Reactive Lymphs 0 % 07/05/16 Unknown Fluid Monocytes 56.0 % 07/05/16 Unknown Fluid Eosinophils 0 % 07/05/16 Unknown Fluid Basophils 0 % 07/05/16 Unknown Fluid Total Protein 3.7 (15.0-45.0) L 07/05/16 Unknown Fluid Albumin 2.5 g/dL 07/05/16 Unknown Fluid LDH 86 07/05/16 Unknown
[2016-07-06] MEDS: LEXAPRO PO SCH (09:10)
[2016-07-06] MEDS: PERCOCET 5/325 PO PRN ×3 (09:10→20:47)
[2016-07-06] MEDS: HALFPRIN EC PO SCH (09:10)
[2016-07-06] MEDS: LASIX IV SCH ×2 (09:10→20:47)
--- NOTE | 2016-07-06 09:27 | Progress Note ---
Assessment and Plan Assessment and plan: 71-year-old male that presents with exudative pleural effusion bilateral pneumonia and history of breast cancer. Marked debility prior to workup. Currently weak but hemodynamically stable. Disposition Plan: plan after treatment of effusion and etiology of effusion long-term f Total Time Spent with Patient (Minutes): 28min - Patient Problems (1) Pleural effusion, bilateral Current Visit: Yes Status: Acute Plan to address problem: Patient would acute bilateral pleural effusion. Status post therapeutic and diagnostic thoracentesis yesterday. Patient had significant improvement yesterday after procedure. At present bodily fluid shows PMNs but no bacteria. Still attempting to rule out congestive heart failure as etiology echocardiogram is pending. (2) Pneumonia Current Visit: Yes Status: Acute Qualifiers: Pneumonia type: due to unspecified organism Laterality: bilateral Lung location: lower lobe of lung Qualified Code(s): J18.9 - Pneumonia, unspecified organism Plan to address problem: At present continue Zosyn now. Patient remains afebrile normal white count. Has improved. After another 24 hours IV antibodies will consider change to by mouth anabiotic's. Patient has not had any growth within 48 hours on blood culture data. Should be able change to by mouth anabiotic's. (3) Shortness of breath Current Visit: Yes Status: Acute Plan to address problem: Secondary to pneumonia. (4) Weakness Current Visit: Yes Status: Acute (5) Weight loss of more than 10% body weight Current Visit: Yes Status: Acute Plan to address problem: At present at present patient clearly lost weight with a BMI of 20. Patient has what appears to be severe protein deficiency malnutrition as evidenced by albumen of 2.2 and a low total protein is well. We will addressing this with his nutritional status as far as eating is concerned dietitian. The exact etiology of this is unknown at this particular time could be breast cancer versus recent infection and pneumonia. Patient has debility from this and will need long-term facility placement. (6) History of breast cancer Current Visit: Yes Status: Chronic Plan to address problem: Continue present workup of breast cancer. Follow-up oncology outpatient. (7) Debility Current Visit: Yes Status: Acute Plan to address problem: Debility multifactorial pneumonia and infection pleural effusion and possibly malignancy as well. Plan for long-term facility. Wound bed available. History Interval history: Patient states that he feels much better after procedure. Can breathe more can rest more comfortably. Patient's main concern today is weakness and debility. Hospitalist Physical - Physical exam Narrative exam: Chronically ill-appearing thin. Wasted appearance. Weak - Constitutional Vitals: Temp Pulse Resp BP Pulse Ox 98.2 F 90 20 165/87 95 07/06/16 08:32 07/06/16 08:32 07/06/16 08:32 07/06/16 08:32 07/06/16 08:32 General appearance: Present: no acute distress, well-nourished, other (bedbound , unable to move ambulates) - EENT Eyes: Present: PERRL ENT: hearing intact, clear oral mucosa, poor dentition, other (patient has some temporal wasting.) - Neck Neck: Present: supple, normal ROM. Absent: masses or JVD, cervical LAD, carotid bruits - Respiratory Respiratory effort: normal Respiratory: right: diminished, negative: wheezing (mild wheezing bilaterally.) - Cardiovascular Rhythm: regular Heart Sounds: Present: S1 & S2 - Extremities Extremities: no ischemia Peripheral Pulses: within normal limits - Abdominal General gastrointestinal: soft, non-tender, non-distended, other (scaphoid) - Integumentary Integumentary: Present: clear, warm, dry - Psychiatric Psychiatric: appropriate mood/affect - Neurologic Neurologic: CNII-XII intact Results - Labs CBC & Chem 7: 07/05/16 16:41 07/05/16 10:05 Labs: Laboratory Last Values WBC 6.1 K/mm3 (4.5-11.0) 07/05/16 16:41 RBC 3.99 M/mm3 (3.65-5.03) 07/05/16 16:41 Hgb 11.4 gm/dl (11.8-15.2) L 07/05/16 16:41 Hct 33.9 % (35.5-45.6) L 07/05/16 16:41 MCV 85 fl (84-94) 07/05/16 16:41 MCH 29 pg (28-32) 07/05/16 16:41 MCHC 34 % (32-34) 07/05/16 16:41 RDW 26.6 % (13.2-15.2) H 07/05/16 16:41 Plt Count 190 K/mm3 (140-440) 07/05/16 16:41 Add Manual Diff Complete 07/05/16 16:41 Total Counted 100 07/05/16 16:41 Seg Neuts % (Manual) 89.0 % (40.0-70.0) H 07/05/16 16:41 Band Neutrophils % 0 % 07/05/16 16:41 Lymphocytes % (Manual) 7.0 % (13.4-35.0) L 07/05/16 16:41 Reactive Lymphs % (Man) 0 % 07/05/16 16:41 Monocytes % (Manual) 4.0 % (0.0-7.3) 07/05/16 16:41 Eosinophils % (Manual) 0 % (0.0-4.3) 07/05/16 16:41 Basophils % (Manual) 0 % (0.0-1.8) 07/05/16 16:41 Metamyelocytes % 0 % 07/05/16 16:41 Myelocytes % 0 % 07/05/16 16:41 Promyelocytes % 0 % 07/05/16 16:41 Blast Cells % 0 % 07/05/16 16:41 Nucleated RBC % Not Reportable 07/05/16 16:41 Seg Neutrophils # Man 5.4 K/mm3 (1.8-7.7) 07/05/16 16:41 Band Neutrophils # 0.0 K/mm3 07/05/16 16:41 Lymphocytes # (Manual) 0.4 K/mm3 (1.2-5.4) L 07/05/16 16:41 Abs React Lymphs (Man) 0.0 K/mm3 07/05/16 16:41 Monocytes # (Manual) 0.2 K/mm3 (0.0-0.8) 07/05/16 16:41 Eosinophils # (Manual) 0.0 K/mm3 (0.0-0.4) 07/05/16 16:41 Basophils # (Manual) 0.0 K/mm3 (0.0-0.1) 07/05/16 16:41 Metamyelocytes # 0.0 K/mm3 07/05/16 16:41 Myelocytes # 0.0 K/mm3 07/05/16 16:41 Promyelocytes # 0.0 K/mm3 07/05/16 16:41 Blast Cells # 0.0 K/mm3 07/05/16 16:41 WBC Morphology Not Reportable 07/05/16 16:41 Hypersegmented Neuts Not Reportable 07/05/16 16:41 Hyposegmented Neuts Not Reportable 07/05/16 16:41 Hypogranular Neuts Not Reportable 07/05/16 16:41 Smudge Cells Not Reportable 07/05/16 16:41 Toxic Granulation Not Reportable 07/05/16 16:41 Toxic Vacuolation Not Reportable 07/05/16 16:41 Dohle Bodies Not Reportable 07/05/16 16:41 Pelger-Huet Anomaly Not Reportable 07/05/16 16:41 Miguel Rods Not Reportable 07/05/16 16:41 Platelet Estimate Consistent w auto 07/05/16 16:41 Clumped Platelets Not Reportable 07/05/16 16:41 Plt Clumps, EDTA Not Reportable 07/05/16 16:41 Large Platelets 1+ 07/05/16 16:41 Giant Platelets Not Reportable 07/05/16 16:41 Platelet Satelliting Not Reportable 07/05/16 16:41 Plt Morphology Comment Not Reportable 07/05/16 16:41 RBC Morphology Not Reportable 07/05/16 16:41 Dimorphic RBCs Not Reportable 07/05/16 16:41 Polychromasia Not Reportable 07/05/16 16:41 Hypochromasia Not Reportable 07/05/16 16:41 Poikilocytosis Not Reportable 07/05/16 16:41 Anisocytosis Not Reportable 07/05/16 16:41 Microcytosis 2+ 07/05/16 16:41 Macrocytosis 1+ 07/05/16 16:41 Spherocytes Not Reportable 07/05/16 16:41 Pappenheimer Bodies Not Reportable 07/05/16 16:41 Sickle Cells Not Reportable 07/05/16 16:41 Target Cells Not Reportable 07/05/16 16:41 Tear Drop Cells Not Reportable 07/05/16 16:41 Ovalocytes 1+ 07/05/16 16:41 Helmet Cells Not Reportable 07/05/16 16:41 Hein-[place] Bodies Not Reportable 07/05/16 16:41 [place] Rings Not Reportable 07/05/16 16:41 [place]únior Cells 1+ 07/05/16 16:41 Bite Cells Not Reportable 07/05/16 16:41 Crenated Cell Not Reportable 07/05/16 16:41 Elliptocytes 1+ 07/05/16 16:41 Acanthocytes (Spur) Not Reportable 07/05/16 16:41 Rouleaux Not Reportable 07/05/16 16:41 Hemoglobin C Crystals Not Reportable 07/05/16 16:41 Schistocytes Not Reportable 07/05/16 16:41 Malaria parasites Not Reportable 07/05/16 16:41 Ricardo Bodies Not Reportable 07/05/16 16:41 Hem Pathologist Commnt No 07/05/16 16:41 PT 14.0 Sec. (12.2-14.9) 07/05/16 08:48 INR 1.09 (0.87-1.13) 07/05/16 08:48 Sodium 137 mmol/L (137-145) 07/05/16 10:05 Potassium 4.4 mmol/L (3.6-5.0) 07/05/16 10:05 Chloride 99.1 mmol/L (98-107) 07/05/16 10:05 Carbon Dioxide 22 mmol/L (22-30) 07/05/16 10:05 Anion Gap 20 mmol/L 07/05/16 10:05 BUN 15 mg/dL (9-20) 07/05/16 10:05 Creatinine 0.9 mg/dL (0.8-1.5) 07/05/16 10:05 Estimated GFR > 60 ml/min 07/05/16 10:05 BUN/Creatinine Ratio 16.66 % 07/05/16 10:05 Glucose 68 mg/dL (75-100) L 07/05/16 10:05 POC Glucose 79 (70-105) 07/06/16 08:36 Hemoglobin A1c 6.0 % (4-6) 07/03/16 10:36 Lactic Acid 0.8 mmol/L (0.7-2.0) 07/05/16 13:23 Calcium 8.0 mg/dL (8.4-10.2) L 07/05/16 10:05 Total Bilirubin 0.6 mg/dL (0.1-1.2) 07/05/16 10:05 AST 26 units/L (5-40) 07/05/16 10:05 ALT 8 units/L (7-56) 07/05/16 10:05 Alkaline Phosphatase 59 units/L (35-129) 07/05/16 10:05 Total Protein 5.4 g/dL (6.3-8.2) L 07/05/16 10:05 Albumin 2.9 g/dL (3.9-5) L 07/05/16 10:05 Albumin/Globulin Ratio 1.2 % 07/05/16 10:05 Urine Color Yellow (Yellow) 07/03/16 15:44 Urine Turbidity Clear (Clear) 07/03/16 15:44 Urine pH 5.0 (5.0-7.0) 07/03/16 15:44 Ur Specific [place] 1.025 (1.003-1.030) 07/03/16 15:44 Urine Protein 30 mg/dl mg/dL (Negative) 07/03/16 15:44 Urine Glucose (UA) Neg mg/dL (Negative) 07/03/16 15:44 Urine Ketones 80 mg/dL (Negative) 07/03/16 15:44 Urine Blood Neg (Negative) 07/03/16 15:44 Urine Nitrite Neg (Negative) 07/03/16 15:44 Urine Bilirubin Neg (Negative) 07/03/16 15:44 Urine Urobilinogen 2.0 mg/dL (<2.0) 07/03/16 15:44 Ur Leukocyte Esterase Neg (Negative) 07/03/16 15:44 Urine WBC (Auto) 2.0 /HPF (0.0-6.0) 07/03/16 15:44 Urine RBC (Auto) 6.0 /HPF (0.0-6.0) 07/03/16 15:44 U Epithel Cells (Auto) 1.0 /HPF (0-13.0) 07/03/16 15:44 Urine Mucus Few /HPF 07/03/16 15:44 Fluid Type Pleural 07/05/16 Unknown Fluid Color Yellow 07/05/16 Unknown Fluid Appearance Hazy 07/05/16 Unknown Fluid WBC 698 /mm3 07/05/16 Unknown Fluid RBC 2318 /mm3 07/05/16 Unknown Fluid Seg Neutrophils 2.0 % 07/05/16 Unknown Fluid Lymphocytes 42.0 % 07/05/16 Unknown Fluid Reactive Lymphs 0 % 07/05/16 Unknown Fluid Monocytes 56.0 % 07/05/16 Unknown Fluid Eosinophils 0 % 07/05/16 Unknown Fluid Basophils 0 % 07/05/16 Unknown Fluid Total Protein 3.7 (15.0-45.0) L 07/05/16 Unknown Fluid Albumin 2.5 g/dL 07/05/16 Unknown Fluid LDH 86 07/05/16 Unknown - Imaging and Cardiology Chest x-ray: image reviewed
[2016-07-06 17:09] LABS: Hematocrit 33.2 % (35.5-45.6); Hemoglobin 11.3 gm/dl (11.8-15.2); Mean Corpuscular HGB Conc 34 % (32-34); Mean Corpuscular Hemoglobin 30 pg (28-32); Mean Corpuscular Volume 86 fl (84-94); Platelet Count 175 K/mm3 (140-440); Red Blood Count 3.84 M/mm3 (3.65-5.03); White Blood Count 4.9 K/mm3 (4.5-11.0)
--- NOTE | 2016-07-06 17:51 | Progress Note ---
Assessment and Plan - Patient Problems (1) Pleural effusion, bilateral Current Visit: Yes Status: Acute Plan to address problem: Patient had recent admission with pneumonia and has a history of breast cancer with >10 pack year history of smoking- will recommend diagnostic and therapeutic thoracentesis under image guidance. Results of pleural fluid analysis will determine next steps with management. Pleural fluid is exudative, lymphocyte predominant. (2) History of breast cancer Current Visit: Yes Status: Chronic (3) Weight loss of more than 10% body weight Current Visit: Yes Status: Acute Plan to address problem: Evaluate for malignancy and adult failure to thrive (4) Pneumonia Current Visit: Yes Status: Acute Qualifiers: Pneumonia type: due to unspecified organism Laterality: bilateral Lung location: lower lobe of lung Qualified Code(s): J18.9 - Pneumonia, unspecified organism Plan to address problem: Currently on Zosyn as per primary service. (5) Weakness Current Visit: Yes Status: Acute Subjective Date of service: 07/06/16 Principal diagnosis: dyspnea, bilateral pleural effusions Interval history: States he feels much better after the thoracentesis. Sitting up in bed having his dinner. Denies any chest pain, no fevers or chills, no cough, off oxygen at this time with adequate gas exchange. Discussed the need for SNF or SAB on discharge as a bridge to home- he is agreeable. Objective - Exam Narrative Exam: Chronically ill-appearing thin. Wasted appearance. Weak Vital Signs - 12hr 07/06/16 07/06/16 07/06/16 05:48 08:32 09:37 Temperature 98.5 F 98.2 F Pulse Rate Pulse Rate [ 83 Apical] Pulse Rate [ 90 Right] Respiratory 20 20 Rate Blood Pressure 127/75 165/87 [Right Arm] O2 Sat by Pulse 98 95 95 Oximetry 07/06/16 07/06/16 07/06/16 10:31 13:00 16:34 Temperature 98.2 F 97.7 F Pulse Rate 83 Pulse Rate [ Apical] Pulse Rate [ 92 H 82 Right] Respiratory 20 18 Rate Blood Pressure 140/74 136/76 [Right Arm] O2 Sat by Pulse 96 92 Oximetry Constitutional: no acute distress, alert, appears uncomfortable Eyes: non-icteric ENT: oropharynx moist Neck: supple, no lymphadenopathy, no JVD Effort: mildly labored Ascultation: Bilateral: diminished breath sounds Cardiovascular: regular rate and rhythm Gastrointestinal: normoactive bowel sounds, soft, non-tender, non-distended Integumentary: normal Extremities: no cyanosis, no edema, edema Neurologic: normal mental status, non-focal exam Psychiatric: affect normal CBC and BMP: 07/06/16 17:00 07/05/16 10:05 ABG, PT/INR, D-dimer: PT/INR, D-dimer PT 14.0 Sec. (12.2-14.9) 07/05/16 08:48 INR 1.09 (0.87-1.13) 07/05/16 08:48 Abnormal lab findings: Abnormal Labs 07/03/16 07/04/16 07/04/16 10:36 10:30 16:43 Hgb 11.4 L Hct 33.2 L RDW 27.3 H Seg Neuts % (Manual) 76.0 H Lymphocytes % (Manual) 8.0 L Lymphocytes # (Manual) 0.6 L Sodium 136 L Chloride 95.6 L Glucose 102 H Calcium 8.3 L ALT 6 L Total Protein 5.7 L Albumin 3.2 L Fluid Total Protein 07/05/16 07/05/16 07/05/16 10:05 16:41 Unknown Hgb 11.4 L Hct 33.9 L RDW 26.6 H Seg Neuts % (Manual) 89.0 H Lymphocytes % (Manual) 7.0 L Lymphocytes # (Manual) 0.4 L Sodium Chloride Glucose 68 L Calcium 8.0 L ALT Total Protein 5.4 L Albumin 2.9 L Fluid Total Protein 3.7 L 07/06/16 17:00 Hgb 11.3 L Hct 33.2 L RDW 27.0 H Seg Neuts % (Manual) Lymphocytes % (Manual) Lymphocytes # (Manual) Sodium Chloride Glucose Calcium ALT Total Protein Albumin Fluid Total Protein Additional Studies: Pleural fluid analysis- exudative, lymphocyte predominant
[2016-07-06 19:04] LABS: Blastocytes % (Manual) 0 %
[2016-07-06 19:05] LABS: Anisocytosis 2+; Hypochromasia 1+; Poikilocytosis 2+
[2016-07-06 19:06] LABS: Microcytosis 1+
[2016-07-06 19:09] LABS: Diff Status Complete; Platelet Estimate Consistent w Auto; Schistocytes 2+
[2016-07-06] MEDS: NEURONTIN PO PRN (20:47)
[2016-07-06] MEDS: ATIVAN PO PRN (20:47)
[2016-07-06] MEDS: LOVENOX SUB-Q SCH (21:09)
[2016-07-06] MEDS: ZOCOR PO SCH (21:09)
[2016-07-07] MEDS: NEURONTIN PO PRN ×2 (01:52→21:45)
[2016-07-07] MEDS: PERCOCET 5/325 PO PRN ×2 (05:30→21:45)
[2016-07-07] MEDS: ZOSYN/NS 4.5GM/100ML 100 ML IV SCH ×3 (05:31→21:44)
[2016-07-07] MEDS: LEXAPRO PO SCH (10:13)
[2016-07-07] MEDS: HALFPRIN EC PO SCH (10:13)
[2016-07-07] MEDS: LASIX IV SCH ×2 (10:13→21:44)
--- NOTE | 2016-07-07 10:46 | Progress Note ---
Assessment and Plan - Patient Problems (1) Pleural effusion, bilateral Current Visit: Yes Status: Acute (2) History of breast cancer Current Visit: Yes Status: Chronic (3) Weight loss of more than 10% body weight Current Visit: Yes Status: Acute (4) Pneumonia Current Visit: Yes Status: Acute Qualifiers: Pneumonia type: due to unspecified organism Laterality: bilateral Lung location: lower lobe of lung Qualified Code(s): J18.9 - Pneumonia, unspecified organism (5) Weakness Current Visit: Yes Status: Acute Subjective Date of service: 07/07/16 Principal diagnosis: dyspnea, bilateral pleural effusions Interval history: States he feels much better after the thoracentesis. Sitting up in bed having his dinner. Denies any chest pain, no fevers or chills, no cough, off oxygen at this time with adequate gas exchange. Discussed the need for SNF or SAB on discharge as a bridge to home- he is agreeable. Today 07/07/2016- Much improved. Feels well. No acute overnight events documented. Patietn seen and examined, vitals, labs, medications, electronic chart notes reviewed Objective Vital Signs - 12hr 07/07/16 07/07/16 07/07/16 00:39 05:30 06:15 Temperature 98.1 F 98.2 F Pulse Rate Pulse Rate [ 83 98 H Apical] Pulse Rate [ Right] Respiratory 20 20 18 Rate Blood Pressure 116/68 123/70 [Right Arm] O2 Sat by Pulse 94 94 Oximetry 07/07/16 07/07/16 09:00 10:22 Temperature 97.7 F Pulse Rate 78 Pulse Rate [ Apical] Pulse Rate [ 84 Right] Respiratory 20 Rate Blood Pressure 149/80 [Right Arm] O2 Sat by Pulse 95 Oximetry Constitutional: no acute distress, alert, appears uncomfortable Eyes: non-icteric ENT: oropharynx moist Neck: supple, no lymphadenopathy, no JVD Effort: mildly labored Ascultation: Bilateral: diminished breath sounds Cardiovascular: regular rate and rhythm Gastrointestinal: normoactive bowel sounds, soft, non-tender, non-distended Integumentary: normal Extremities: no cyanosis, no edema, edema Neurologic: normal mental status, non-focal exam Psychiatric: affect normal CBC and BMP: 07/06/16 17:00 07/05/16 10:05 ABG, PT/INR, D-dimer: PT/INR, D-dimer PT 14.0 Sec. (12.2-14.9) 07/05/16 08:48 INR 1.09 (0.87-1.13) 07/05/16 08:48 Abnormal lab findings: Abnormal Labs 07/03/16 07/04/16 07/04/16 10:36 10:30 16:43 Hgb 11.4 L Hct 33.2 L RDW 27.3 H Seg Neuts % (Manual) 76.0 H Lymphocytes % (Manual) 8.0 L Monocytes % (Manual) Basophils % (Manual) Lymphocytes # (Manual) 0.6 L Sodium 136 L Chloride 95.6 L Glucose 102 H Calcium 8.3 L ALT 6 L Total Protein 5.7 L Albumin 3.2 L Fluid Total Protein 07/05/16 07/05/16 07/05/16 10:05 16:41 Unknown Hgb 11.4 L Hct 33.9 L RDW 26.6 H Seg Neuts % (Manual) 89.0 H Lymphocytes % (Manual) 7.0 L Monocytes % (Manual) Basophils % (Manual) Lymphocytes # (Manual) 0.4 L Sodium Chloride Glucose 68 L Calcium 8.0 L ALT Total Protein 5.4 L Albumin 2.9 L Fluid Total Protein 3.7 L 07/06/16 17:00 Hgb 11.3 L Hct 33.2 L RDW 27.0 H Seg Neuts % (Manual) 76.0 H Lymphocytes % (Manual) 5.0 L Monocytes % (Manual) 10.0 H Basophils % (Manual) 2.0 H Lymphocytes # (Manual) 0.2 L Sodium Chloride Glucose Calcium ALT Total Protein Albumin Fluid Total Protein
--- NOTE | 2016-07-07 12:46 | Progress Note ---
Assessment and Plan Assessment and plan: Patient is a 71-year-old man with a history of left breast cancer status post mastectomy, left pleural effusion, pneumonia who discharged here 2 weeks ago who developed progressive shortness of breath 1. Pleural effusion status post thoracentesis doing better 2. Bacterial pneumonia: Antibiotics 3. Left breast cancer 4. Anemia of chronic disease, chronic and stable Echo pending Placement pending History Interval history: Patient seen and examined. Follow up on shortness of breath which is improved after thoracentesis. Overnight uneventful. No cp, sob, n/v or severe headaches. Imaging, old records, testing, labs, nursing notes reviewed. Hospitalist Physical - Physical exam Narrative exam: GEN: Thin frail chronically debilitated, NAD, AWAKE, ALERT, ORIENTATED 3 CVS: RRR, NORMAL S1S2 LUNGS/CHEST: Bibasilar crackles NORMAL CHEST EXPANSION B, GOOD AIR ENTRY B ABD: SOFT NTND, GBS, NO REBOUND OR GUARDING EXT/SKIN: NO SIGNIFICANT EDEMA OR RASH MSK: FROM X 4 EXTREMITIES NEURO: CN 2-12 GROSSLY INTACT, NO NEW FOCAL DEFICITS PSY: CALM - Constitutional Vitals: Temp Pulse Resp BP Pulse Ox 97.7 F 78 20 149/80 95 07/07/16 09:00 07/07/16 10:22 07/07/16 09:00 07/07/16 09:00 07/07/16 09:00 General appearance: Present: no acute distress Results - Labs CBC & Chem 7: 07/06/16 17:00 07/05/16 10:05 Labs: Laboratory Last Values WBC 4.9 K/mm3 (4.5-11.0) 07/06/16 17:00 RBC 3.84 M/mm3 (3.65-5.03) 07/06/16 17:00 Hgb 11.3 gm/dl (11.8-15.2) L 07/06/16 17:00 Hct 33.2 % (35.5-45.6) L 07/06/16 17:00 MCV 86 fl (84-94) 07/06/16 17:00 MCH 30 pg (28-32) 07/06/16 17:00 MCHC 34 % (32-34) 07/06/16 17:00 RDW 27.0 % (13.2-15.2) H 07/06/16 17:00 Plt Count 175 K/mm3 (140-440) 07/06/16 17:00 Add Manual Diff Complete 07/06/16 17:00 Total Counted 100 07/06/16 17:00 Seg Neuts % (Manual) 76.0 % (40.0-70.0) H 07/06/16 17:00 Band Neutrophils % 6.0 % 07/06/16 17:00 Lymphocytes % (Manual) 5.0 % (13.4-35.0) L 07/06/16 17:00 Reactive Lymphs % (Man) 0 % 07/06/16 17:00 Monocytes % (Manual) 10.0 % (0.0-7.3) H 07/06/16 17:00 Eosinophils % (Manual) 1.0 % (0.0-4.3) 07/06/16 17:00 Basophils % (Manual) 2.0 % (0.0-1.8) H 07/06/16 17:00 Metamyelocytes % 0 % 07/06/16 17:00 Myelocytes % 0 % 07/06/16 17:00 Promyelocytes % 0 % 07/06/16 17:00 Blast Cells % 0 % 07/06/16 17:00 Nucleated RBC % Not Reportable 07/06/16 17:00 Seg Neutrophils # Man 3.7 K/mm3 (1.8-7.7) 07/06/16 17:00 Band Neutrophils # 0.3 K/mm3 07/06/16 17:00 Lymphocytes # (Manual) 0.2 K/mm3 (1.2-5.4) L 07/06/16 17:00 Abs React Lymphs (Man) 0.0 K/mm3 07/06/16 17:00 Monocytes # (Manual) 0.5 K/mm3 (0.0-0.8) 07/06/16 17:00 Eosinophils # (Manual) 0.0 K/mm3 (0.0-0.4) 07/06/16 17:00 Basophils # (Manual) 0.1 K/mm3 (0.0-0.1) 07/06/16 17:00 Metamyelocytes # 0.0 K/mm3 07/06/16 17:00 Myelocytes # 0.0 K/mm3 07/06/16 17:00 Promyelocytes # 0.0 K/mm3 07/06/16 17:00 Blast Cells # 0.0 K/mm3 07/06/16 17:00 WBC Morphology Not Reportable 07/06/16 17:00 Hypersegmented Neuts Not Reportable 07/06/16 17:00 Hyposegmented Neuts Not Reportable 07/06/16 17:00 Hypogranular Neuts Not Reportable 07/06/16 17:00 Smudge Cells Not Reportable 07/06/16 17:00 Toxic Granulation Not Reportable 07/06/16 17:00 Toxic Vacuolation Not Reportable 07/06/16 17:00 Dohle Bodies Not Reportable 07/06/16 17:00 Pelger-Huet Anomaly Not Reportable 07/06/16 17:00 Miguel Rods Not Reportable 07/06/16 17:00 Platelet Estimate Consistent w auto 07/06/16 17:00 Clumped Platelets Not Reportable 07/06/16 17:00 Plt Clumps, EDTA Not Reportable 07/06/16 17:00 Large Platelets Not Reportable 07/06/16 17:00 Giant Platelets Not Reportable 07/06/16 17:00 Platelet Satelliting Not Reportable 07/06/16 17:00 Plt Morphology Comment Not Reportable 07/06/16 17:00 RBC Morphology Not Reportable 07/06/16 17:00 Dimorphic RBCs Not Reportable 07/06/16 17:00 Polychromasia Not Reportable 07/06/16 17:00 Hypochromasia 1+ 07/06/16 17:00 Poikilocytosis 2+ 07/06/16 17:00 Anisocytosis 2+ 07/06/16 17:00 Microcytosis 1+ 07/06/16 17:00 Macrocytosis Not Reportable 07/06/16 17:00 Spherocytes Not Reportable 07/06/16 17:00 Pappenheimer Bodies Not Reportable 07/06/16 17:00 Sickle Cells Not Reportable 07/06/16 17:00 Target Cells Not Reportable 07/06/16 17:00 Tear Drop Cells Not Reportable 07/06/16 17:00 Ovalocytes Not Reportable 07/06/16 17:00 Helmet Cells Not Reportable 07/06/16 17:00 Hein-[place] Bodies Not Reportable 07/06/16 17:00 [place] Rings Not Reportable 07/06/16 17:00 [place] Cells Not Reportable 07/06/16 17:00 Bite Cells Not Reportable 07/06/16 17:00 Crenated Cell Not Reportable 07/06/16 17:00 Elliptocytes Not Reportable 07/06/16 17:00 Acanthocytes (Spur) Not Reportable 07/06/16 17:00 Rouleaux Not Reportable 07/06/16 17:00 Hemoglobin C Crystals Not Reportable 07/06/16 17:00 Schistocytes 2+ 07/06/16 17:00 Malaria parasites Not Reportable 07/06/16 17:00 Ricardo Bodies Not Reportable 07/06/16 17:00 Hem Pathologist Commnt No 07/06/16 17:00 PT 14.0 Sec. (12.2-14.9) 07/05/16 08:48 INR 1.09 (0.87-1.13) 07/05/16 08:48 Sodium 137 mmol/L (137-145) 07/05/16 10:05 Potassium 4.4 mmol/L (3.6-5.0) 07/05/16 10:05 Chloride 99.1 mmol/L (98-107) 07/05/16 10:05 Carbon Dioxide 22 mmol/L (22-30) 07/05/16 10:05 Anion Gap 20 mmol/L 07/05/16 10:05 BUN 15 mg/dL (9-20) 07/05/16 10:05 Creatinine 0.9 mg/dL (0.8-1.5) 07/05/16 10:05 Estimated GFR > 60 ml/min 07/05/16 10:05 BUN/Creatinine Ratio 16.66 % 07/05/16 10:05 Glucose 68 mg/dL (75-100) L 07/05/16 10:05 POC Glucose 104 (70-105) 07/06/16 16:38 Hemoglobin A1c 6.0 % (4-6) 07/03/16 10:36 Lactic Acid 1.6 mmol/L (0.7-2.0) 07/06/16 13:07 Calcium 8.0 mg/dL (8.4-10.2) L 07/05/16 10:05 Total Bilirubin 0.6 mg/dL (0.1-1.2) 07/05/16 10:05 AST 26 units/L (5-40) 07/05/16 10:05 ALT 8 units/L (7-56) 07/05/16 10:05 Alkaline Phosphatase 59 units/L (35-129) 07/05/16 10:05 Total Protein 5.4 g/dL (6.3-8.2) L 07/05/16 10:05 Albumin 2.9 g/dL (3.9-5) L 07/05/16 10:05 Albumin/Globulin Ratio 1.2 % 07/05/16 10:05 Urine Color Yellow (Yellow) 07/03/16 15:44 Urine Turbidity Clear (Clear) 07/03/16 15:44 Urine pH 5.0 (5.0-7.0) 07/03/16 15:44 Ur Specific [place] 1.025 (1.003-1.030) 07/03/16 15:44 Urine Protein 30 mg/dl mg/dL (Negative) 07/03/16 15:44 Urine Glucose (UA) Neg mg/dL (Negative) 07/03/16 15:44 Urine Ketones 80 mg/dL (Negative) 07/03/16 15:44 Urine Blood Neg (Negative) 07/03/16 15:44 Urine Nitrite Neg (Negative) 07/03/16 15:44 Urine Bilirubin Neg (Negative) 07/03/16 15:44 Urine Urobilinogen 2.0 mg/dL (<2.0) 07/03/16 15:44 Ur Leukocyte Esterase Neg (Negative) 07/03/16 15:44 Urine WBC (Auto) 2.0 /HPF (0.0-6.0) 07/03/16 15:44 Urine RBC (Auto) 6.0 /HPF (0.0-6.0) 07/03/16 15:44 U Epithel Cells (Auto) 1.0 /HPF (0-13.0) 07/03/16 15:44 Urine Mucus Few /HPF 07/03/16 15:44 Fluid Type Pleural 07/05/16 Unknown Fluid Color Yellow 07/05/16 Unknown Fluid Appearance Hazy 07/05/16 Unknown Fluid WBC 698 /mm3 07/05/16 Unknown Fluid RBC 2318 /mm3 07/05/16 Unknown Fluid Seg Neutrophils 2.0 % 07/05/16 Unknown Fluid Lymphocytes 42.0 % 07/05/16 Unknown Fluid Reactive Lymphs 0 % 07/05/16 Unknown Fluid Monocytes 56.0 % 07/05/16 Unknown Fluid Eosinophils 0 % 07/05/16 Unknown Fluid Basophils 0 % 07/05/16 Unknown Fluid Total Protein 3.7 (15.0-45.0) L 07/05/16 Unknown Fluid Albumin 2.5 g/dL 07/05/16 Unknown Fluid LDH 86 07/05/16 Unknown
--- NOTE | 2016-07-07 13:45 | Echocardiography Report ---
Transthoracic Echocardiogram Indication: HF BP: 123/70 Conclusions *The left ventricular chamber size is normal. *Global left ventricular systolic function is mildly decreased. *The estimated ejection fraction is 40-45%. *Abnormal left ventricular diastolic function is observed. *The left atrium is normal in size with no visual thrombus identified. 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 *There is mild aortic regurgitation. *The mitral valve leaflets appear normal. *The tricuspid valve leaflets are normal. *There is no dilatation of the ascending aorta. *There is no pericardial effusion. *Consider KIRK for further evaluation. Findings Procedure Info: The study quality is fair. Left Ventricle: The left ventricular chamber size is normal. Global left ventricular wall motion and contractility are within normal limits. Global left ventricular systolic function is mildly decreased. The estimated ejection fraction is 40-45%. Abnormal left ventricular diastolic function is observed. There is an E to A reversal in the mitral valve flow pattern suggestive of diastolic dysfunction. Left Atrium: The left atrium is normal in size with no visual thrombus identified. The left atrial cavity size is abnormally small. 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 The right ventricular global systolic function is normal. Right Atrium: The right atrium appears normal. The interatrial septum appears normal. Aortic Valve: The aortic valve is trileaflet. There is mild aortic regurgitation. There is no evidence of aortic stenosis. The calculated aortic regurgitation pressure half-time is 503 msec. Mitral Valve: The mitral valve leaflets appear normal. There is no evidence of mitral regurgitation. There is no evidence of mitral stenosis. Tricuspid Valve: The tricuspid valve leaflets are normal. There is no evidence of tricuspid valve regurgitation. There is no tricuspid stenosis. Pulmonic Valve: The pulmonic valve appears normal. There is no evidence of pulmonic regurgitation. There is no pulmonic stenosis. Pericardium: There is no pericardial effusion. Aorta: There is no dilatation of the ascending aorta. There is no dilatation of the aortic arch. There is no dilatation of the descending thoracic aorta. There is mild dilatation of the aortic root. Venous: The inferior vena cava appears normal. The inferior vena cava appears normal in size. There is a greater than 50% respiratory change in the inferior vena cava dimension. Measurements Chambers MM Name Value Normal Range Ao root diameter (MM) 3.7 cm (2 - 3.7) LA dimension (AP) MM 2.1 cm (1.9 - 4) LA:Ao ratio (MM) 0.57 ratio - AV cusp separation (MM) 1.7 cm (1.5 - 2.6) Chambers 2D Name Value Normal Range RVIDd (AP) 2D 1.93 cm (0.9 - 2.6) IVSd (2D) 0.88 cm (0.6 - 1.1) LVPWd (2D) 0.71 cm (0.6 - 1.1) IVS:LVPW ratio (2D) 1.23 ratio - LVIDd (2D) 5.15 cm (3.7 - 5.6) LVIDs (2D) 4.06 cm (2 - 3.8) LV FS (Teichholz) (2D) 21.2 % - LV FS (cube) (2D) 21.2 % - EF Teichholz (2D) 42.9 % - Ao root diameter (2D) 3.8 cm (2 - 3.7) LA dimension (AP) 2D 2 cm (1.9 - 4) LA:Ao ratio (2D) 0.53 ratio - Volumes/Mass Name Value Normal Range LA ESV SP 4CH (MOD) 15 ml - LA ESV SP 2CH (MOD) 16 ml - Diastolic/Systolic Function Name Value Normal Range MV E-wave Vmax 0.8 m/sec - MV deceleration time 108 msec - MV A-wave Vmax 1.18 m/sec - MV E:A ratio 0.7 ratio - LV septal e' Vmax 0.05 m/sec - LV lateral e' Vmax 0.09 m/sec - LV E:e' septal ratio 15.2 ratio - LV E:e' lateral ratio 9.3 ratio - Aortic Valve Name Value Normal Range AV Vmax 1.04 m/sec - AV peak gradient 4 mmHg - LVOT diameter 2.3 cm - LVOT Vmax 0.91 m/sec - LVOT peak gradient 3 mmHg - JUSTICE (continuity Vmax) 3.64 cm2 - AR PHT 503 msec - AR peak gradient 58 mmHg - Tricuspid Valve Name Value Normal Range TV E-wave Vmax 0.5 m/sec - TR Vmax 1.28 m/sec - TR peak gradient 7 mmHg - Pulmonic Valve/Qp:Qs Name Value Normal Range PV Vmax 0.93 m/sec - PV peak gradient 3 mmHg - PV acceleration time 120 msec -
[2016-07-07] MEDS: ATIVAN PO PRN ×2 (15:16→21:45)
[2016-07-07] MEDS: LOVENOX SUB-Q SCH (21:45)
[2016-07-07] MEDS: ZOCOR PO SCH (21:45)
[2016-07-08] MEDS: ZOSYN/NS 4.5GM/100ML 100 ML IV SCH ×3 (05:19→21:45)
--- NOTE | 2016-07-08 07:49 | Progress Note ---
Assessment and Plan Assessment and plan: Patient is a 71-year-old man with a history of left breast cancer status post mastectomy, left pleural effusion, pneumonia who discharged here 2 weeks ago who developed progressive shortness of breath 1. Pleural effusion status post thoracentesis, he is doing better 2. Bacterial pneumonia: Antibiotics 3. Left breast cancer 4. 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 cbc/bmp ordered for tomorrow Placement pending History Interval history: Patient seen and examined. Follow up on shortness of breath which is improved after thoracentesis. Overnight uneventful. No cp, sob, n/v or severe headaches. Imaging, old records, testing, labs, nursing notes reviewed. Hospitalist Physical - Physical exam Narrative exam: GEN: Thin frail chronically debilitated, NAD, AWAKE, ALERT, ORIENTATED 3 CVS: RRR, NORMAL S1S2 LUNGS/CHEST: Bibasilar crackles NORMAL CHEST EXPANSION B, GOOD AIR ENTRY B ABD: SOFT NTND, GBS, NO REBOUND OR GUARDING EXT/SKIN: NO SIGNIFICANT EDEMA OR RASH MSK: FROM X 4 EXTREMITIES NEURO: CN 2-12 GROSSLY INTACT, NO NEW FOCAL DEFICITS PSY: CALM - Constitutional Vitals: Temp Pulse Resp BP Pulse Ox 98.4 F 84 20 145/77 94 07/08/16 05:23 07/08/16 05:23 07/08/16 05:23 07/08/16 05:23 07/08/16 07:34 General appearance: Present: no acute distress Results - Labs CBC & Chem 7: 07/06/16 17:00 07/05/16 10:05 Labs: Laboratory Last Values WBC 4.9 K/mm3 (4.5-11.0) 07/06/16 17:00 RBC 3.84 M/mm3 (3.65-5.03) 07/06/16 17:00 Hgb 11.3 gm/dl (11.8-15.2) L 07/06/16 17:00 Hct 33.2 % (35.5-45.6) L 07/06/16 17:00 MCV 86 fl (84-94) 07/06/16 17:00 MCH 30 pg (28-32) 07/06/16 17:00 MCHC 34 % (32-34) 07/06/16 17:00 RDW 27.0 % (13.2-15.2) H 07/06/16 17:00 Plt Count 175 K/mm3 (140-440) 07/06/16 17:00 Add Manual Diff Complete 07/06/16 17:00 Total Counted 100 07/06/16 17:00 Seg Neuts % (Manual) 76.0 % (40.0-70.0) H 07/06/16 17:00 Band Neutrophils % 6.0 % 07/06/16 17:00 Lymphocytes % (Manual) 5.0 % (13.4-35.0) L 07/06/16 17:00 Reactive Lymphs % (Man) 0 % 07/06/16 17:00 Monocytes % (Manual) 10.0 % (0.0-7.3) H 07/06/16 17:00 Eosinophils % (Manual) 1.0 % (0.0-4.3) 07/06/16 17:00 Basophils % (Manual) 2.0 % (0.0-1.8) H 07/06/16 17:00 Metamyelocytes % 0 % 07/06/16 17:00 Myelocytes % 0 % 07/06/16 17:00 Promyelocytes % 0 % 07/06/16 17:00 Blast Cells % 0 % 07/06/16 17:00 Nucleated RBC % Not Reportable 07/06/16 17:00 Seg Neutrophils # Man 3.7 K/mm3 (1.8-7.7) 07/06/16 17:00 Band Neutrophils # 0.3 K/mm3 07/06/16 17:00 Lymphocytes # (Manual) 0.2 K/mm3 (1.2-5.4) L 07/06/16 17:00 Abs React Lymphs (Man) 0.0 K/mm3 07/06/16 17:00 Monocytes # (Manual) 0.5 K/mm3 (0.0-0.8) 07/06/16 17:00 Eosinophils # (Manual) 0.0 K/mm3 (0.0-0.4) 07/06/16 17:00 Basophils # (Manual) 0.1 K/mm3 (0.0-0.1) 07/06/16 17:00 Metamyelocytes # 0.0 K/mm3 07/06/16 17:00 Myelocytes # 0.0 K/mm3 07/06/16 17:00 Promyelocytes # 0.0 K/mm3 07/06/16 17:00 Blast Cells # 0.0 K/mm3 07/06/16 17:00 WBC Morphology Not Reportable 07/06/16 17:00 Hypersegmented Neuts Not Reportable 07/06/16 17:00 Hyposegmented Neuts Not Reportable 07/06/16 17:00 Hypogranular Neuts Not Reportable 07/06/16 17:00 Smudge Cells Not Reportable 07/06/16 17:00 Toxic Granulation Not Reportable 07/06/16 17:00 Toxic Vacuolation Not Reportable 07/06/16 17:00 Dohle Bodies Not Reportable 07/06/16 17:00 Pelger-Huet Anomaly Not Reportable 07/06/16 17:00 Miguel Rods Not Reportable 07/06/16 17:00 Platelet Estimate Consistent w auto 07/06/16 17:00 Clumped Platelets Not Reportable 07/06/16 17:00 Plt Clumps, EDTA Not Reportable 07/06/16 17:00 Large Platelets Not Reportable 07/06/16 17:00 Giant Platelets Not Reportable 07/06/16 17:00 Platelet Satelliting Not Reportable 07/06/16 17:00 Plt Morphology Comment Not Reportable 07/06/16 17:00 RBC Morphology Not Reportable 07/06/16 17:00 Dimorphic RBCs Not Reportable 07/06/16 17:00 Polychromasia Not Reportable 07/06/16 17:00 Hypochromasia 1+ 07/06/16 17:00 Poikilocytosis 2+ 07/06/16 17:00 Anisocytosis 2+ 07/06/16 17:00 Microcytosis 1+ 07/06/16 17:00 Macrocytosis Not Reportable 07/06/16 17:00 Spherocytes Not Reportable 07/06/16 17:00 Pappenheimer Bodies Not Reportable 07/06/16 17:00 Sickle Cells Not Reportable 07/06/16 17:00 Target Cells Not Reportable 07/06/16 17:00 Tear Drop Cells Not Reportable 07/06/16 17:00 Ovalocytes Not Reportable 07/06/16 17:00 Helmet Cells Not Reportable 07/06/16 17:00 Hein-[place] Bodies Not Reportable 07/06/16 17:00 [place] Rings Not Reportable 07/06/16 17:00 [place] Cells Not Reportable 07/06/16 17:00 Bite Cells Not Reportable 07/06/16 17:00 Crenated Cell Not Reportable 07/06/16 17:00 Elliptocytes Not Reportable 07/06/16 17:00 Acanthocytes (Spur) Not Reportable 07/06/16 17:00 Rouleaux Not Reportable 07/06/16 17:00 Hemoglobin C Crystals Not Reportable 07/06/16 17:00 Schistocytes 2+ 07/06/16 17:00 Malaria parasites Not Reportable 07/06/16 17:00 Ricardo Bodies Not Reportable 07/06/16 17:00 Hem Pathologist Commnt No 07/06/16 17:00 PT 14.0 Sec. (12.2-14.9) 07/05/16 08:48 INR 1.09 (0.87-1.13) 07/05/16 08:48 Sodium 137 mmol/L (137-145) 07/05/16 10:05 Potassium 4.4 mmol/L (3.6-5.0) 07/05/16 10:05 Chloride 99.1 mmol/L (98-107) 07/05/16 10:05 Carbon Dioxide 22 mmol/L (22-30) 07/05/16 10:05 Anion Gap 20 mmol/L 07/05/16 10:05 BUN 15 mg/dL (9-20) 07/05/16 10:05 Creatinine 0.9 mg/dL (0.8-1.5) 07/05/16 10:05 Estimated GFR > 60 ml/min 07/05/16 10:05 BUN/Creatinine Ratio 16.66 % 07/05/16 10:05 Glucose 68 mg/dL (75-100) L 07/05/16 10:05 POC Glucose 104 (70-105) 07/06/16 16:38 Hemoglobin A1c 6.0 % (4-6) 07/03/16 10:36 Lactic Acid 1.6 mmol/L (0.7-2.0) 07/06/16 13:07 Calcium 8.0 mg/dL (8.4-10.2) L 07/05/16 10:05 Total Bilirubin 0.6 mg/dL (0.1-1.2) 07/05/16 10:05 AST 26 units/L (5-40) 07/05/16 10:05 ALT 8 units/L (7-56) 07/05/16 10:05 Alkaline Phosphatase 59 units/L (35-129) 07/05/16 10:05 Total Protein 5.4 g/dL (6.3-8.2) L 07/05/16 10:05 Albumin 2.9 g/dL (3.9-5) L 07/05/16 10:05 Albumin/Globulin Ratio 1.2 % 07/05/16 10:05 Urine Color Yellow (Yellow) 07/03/16 15:44 Urine Turbidity Clear (Clear) 07/03/16 15:44 Urine pH 5.0 (5.0-7.0) 07/03/16 15:44 Ur Specific [place] 1.025 (1.003-1.030) 07/03/16 15:44 Urine Protein 30 mg/dl mg/dL (Negative) 07/03/16 15:44 Urine Glucose (UA) Neg mg/dL (Negative) 07/03/16 15:44 Urine Ketones 80 mg/dL (Negative) 07/03/16 15:44 Urine Blood Neg (Negative) 07/03/16 15:44 Urine Nitrite Neg (Negative) 07/03/16 15:44 Urine Bilirubin Neg (Negative) 07/03/16 15:44 Urine Urobilinogen 2.0 mg/dL (<2.0) 07/03/16 15:44 Ur Leukocyte Esterase Neg (Negative) 07/03/16 15:44 Urine WBC (Auto) 2.0 /HPF (0.0-6.0) 07/03/16 15:44 Urine RBC (Auto) 6.0 /HPF (0.0-6.0) 07/03/16 15:44 U Epithel Cells (Auto) 1.0 /HPF (0-13.0) 07/03/16 15:44 Urine Mucus Few /HPF 07/03/16 15:44 Fluid Type Pleural 07/05/16 Unknown Fluid Color Yellow 07/05/16 Unknown Fluid Appearance Hazy 07/05/16 Unknown Fluid WBC 698 /mm3 07/05/16 Unknown Fluid RBC 2318 /mm3 07/05/16 Unknown Fluid Seg Neutrophils 2.0 % 07/05/16 Unknown Fluid Lymphocytes 42.0 % 07/05/16 Unknown Fluid Reactive Lymphs 0 % 07/05/16 Unknown Fluid Monocytes 56.0 % 07/05/16 Unknown Fluid Eosinophils 0 % 07/05/16 Unknown Fluid Basophils 0 % 07/05/16 Unknown Fluid Total Protein 3.7 (15.0-45.0) L 07/05/16 Unknown Fluid Albumin 2.5 g/dL 07/05/16 Unknown Fluid LDH 86 07/05/16 Unknown
[2016-07-08] MEDS: HALFPRIN EC PO SCH (09:38)
[2016-07-08] MEDS: LEXAPRO PO SCH (09:38)
[2016-07-08] MEDS: LASIX IV SCH ×2 (09:38→21:45)
[2016-07-08] MEDS: PERCOCET 5/325 PO PRN ×2 (13:16→21:45)
--- NOTE | 2016-07-08 14:16 | Progress Note ---
Assessment and Plan Patient awake, complaining back pain. No acute respiratory distress.O2 satuaration 92% on room air. - Patient Problems (1) Pleural effusion, bilateral Current Visit: Yes Status: Acute Plan to address problem: Patient undergone left thoracentesis. Pleural fluid appears transudate Pleural fluid protein 2.5 Pleural fluid LDH86 (2) Pneumonia Current Visit: Yes Status: Acute Qualifiers: Pneumonia type: due to unspecified organism Laterality: bilateral Lung location: lower lobe of lung Qualified Code(s): J18.9 - Pneumonia, unspecified organism Plan to address problem: Patient is on Zosyn (3) Shortness of breath Current Visit: Yes Status: Acute Plan to address problem: Patient says better now. Albuterol/atrovent aerosol treatments prn for shortness of breath. Subjective Date of service: 07/08/16 Principal diagnosis: dyspnea, bilateral pleural effusions Interval history: Patient awake, complaining back pain. No acute respiratory distress.O2 satuaration 92% on room air. Objective Vital Signs - 12hr 07/08/16 07/08/16 07/08/16 05:23 07:34 07:53 Temperature 98.4 F 98.2 F Pulse Rate Pulse Rate [ 86 Apical] Pulse Rate [ 84 Right] Respiratory 20 20 Rate Respiratory Rate [Bilateral Leg] Respiratory Rate [Lower Back] Blood Pressure 145/77 133/77 [Right Arm] O2 Sat by Pulse 90 94 93 Oximetry 07/08/16 07/08/16 07/08/16 10:00 11:25 13:16 Temperature 98.3 F Pulse Rate 86 Pulse Rate [ 86 100 H Apical] Pulse Rate [ Right] Respiratory 20 20 Rate Respiratory 20 Rate [Bilateral Leg] Respiratory 20 Rate [Lower Back] Blood Pressure 134/88 [Right Arm] O2 Sat by Pulse 93 92 Oximetry Constitutional: no acute distress, alert, appears uncomfortable Eyes: non-icteric ENT: oropharynx moist Neck: supple, no lymphadenopathy, no JVD Effort: mildly labored Ascultation: Bilateral: diminished breath sounds Cardiovascular: regular rate and rhythm Gastrointestinal: normoactive bowel sounds, soft, non-tender, non-distended Integumentary: normal Extremities: no cyanosis, no edema, edema Neurologic: normal mental status, non-focal exam Psychiatric: affect normal CBC and BMP: 07/06/16 17:00 07/05/16 10:05 ABG, PT/INR, D-dimer: PT/INR, D-dimer PT 14.0 Sec. (12.2-14.9) 07/05/16 08:48 INR 1.09 (0.87-1.13) 07/05/16 08:48 Abnormal lab findings: Abnormal Labs 07/03/16 07/04/16 07/04/16 10:36 10:30 16:43 Hgb 11.4 L Hct 33.2 L RDW 27.3 H Seg Neuts % (Manual) 76.0 H Lymphocytes % (Manual) 8.0 L Monocytes % (Manual) Basophils % (Manual) Lymphocytes # (Manual) 0.6 L Sodium 136 L Chloride 95.6 L Glucose 102 H Calcium 8.3 L ALT 6 L Total Protein 5.7 L Albumin 3.2 L Fluid Total Protein 07/05/16 07/05/16 07/05/16 10:05 16:41 Unknown Hgb 11.4 L Hct 33.9 L RDW 26.6 H Seg Neuts % (Manual) 89.0 H Lymphocytes % (Manual) 7.0 L Monocytes % (Manual) Basophils % (Manual) Lymphocytes # (Manual) 0.4 L Sodium Chloride Glucose 68 L Calcium 8.0 L ALT Total Protein 5.4 L Albumin 2.9 L Fluid Total Protein 3.7 L 07/06/16 17:00 Hgb 11.3 L Hct 33.2 L RDW 27.0 H Seg Neuts % (Manual) 76.0 H Lymphocytes % (Manual) 5.0 L Monocytes % (Manual) 10.0 H Basophils % (Manual) 2.0 H Lymphocytes # (Manual) 0.2 L Sodium Chloride Glucose Calcium ALT Total Protein Albumin Fluid Total Protein Chest x-ray: report reviewed (Right pleural effusion, No evidence of pneumothorax post thoracentesis.), image reviewed
[2016-07-08] MEDS: ATIVAN PO PRN (14:41)
--- NOTE | 2016-07-08 16:15 | Consultation ---
History of Present Illness Consult date: 07/08/16 Requesting physician: MEGHA CALLOWAY History of present illness: The patient is a 71 year old male with a history of left breast CA, hypertension who presented on 07/03/16 with complaints of worsening shortness of breath and weakness over the past several days. He was found to have bilateral pleural effusions, L > R and had since undergone left thoracentesis with improvement in his symptoms. TTE showed EF 40-45%, abnormal diastolic function, mild AR, left atrial myxoma. He currently states that he is breathing much better. He denies any chest pain or palpitations. Past History Past Medical History: hypertension, other (Left breast cancer status post mastectomy) Past Surgical History: mastectomy Social history: Lives alone. denies: smoking, alcohol abuse Family history: denies: cancer, hypertension, stroke Medications and Allergies Allergies Allergy/AdvReac Type Severity Reaction Status Date / Time No Known Allergies Allergy Unverified 06/19/16 18:30 Home Medications Medication Instructions Recorded Confirmed Last Taken Type Escitalopram Oxalate [Lexapro] 20 mg PO DAILY 06/20/16 07/05/16 Unknown History Gabapentin [Neurontin] 300 mg PO QID PRN 06/20/16 07/05/16 Unknown History Ibrance 300 mg PO DAILY 06/20/16 07/05/16 Unknown History Simvastatin [Zocor TAB] 20 mg PO QHS 06/20/16 07/05/16 Unknown History Aspirin EC [Aspirin Enteric Coated 81 mg PO QDAY #30 tablet. 06/25/16 Unknown Rx TAB] LORazepam [Ativan] 1 mg PO BID PRN #30 tablet 06/25/16 07/05/16 Unknown Rx oxyCODONE /ACETAMINOPHEN [Percocet 1 tab PO Q4H PRN #30 tablet 06/25/16 Unknown Rx 5/325 mg] Active Meds: Active Medications Aspirin (Halfprin Ec) 81 mg PO QDAY [facility] Last Admin: 07/08/16 09:38 Dose: 81 mg Enoxaparin Sodium (Lovenox) 40 mg SUB-Q QDAY@2200 [facility] Last Admin: 07/07/16 21:45 Dose: 40 mg Escitalopram Oxalate (Lexapro) 20 mg PO DAILY [facility] Last Admin: 07/08/16 09:38 Dose: 10 mg Furosemide (Lasix) 20 mg IV Q12H [facility] Last Admin: 07/08/16 09:38 Dose: 20 mg Gabapentin (Neurontin) 300 mg PO QID PRN PRN Reason: Pain Last Admin: 07/07/16 21:45 Dose: 300 mg Hydralazine HCl (Apresoline) 10 mg IV Q4HR PRN PRN Reason: SBP>170 Piperacillin Sod/Tazobactam Sod (Zosyn/Ns 4.5gm/100ml) 100 mls @ 200 mls/hr IV Q8H TYRELL PRN Reason: Protocol Last Admin: 07/08/16 13:15 Dose: 200 mls/hr Lorazepam (Ativan) 1 mg PO BID PRN PRN Reason: Anxiety Last Admin: 07/08/16 14:41 Dose: 1 mg Oxycodone/Acetaminophen (Percocet 5/325) 1 tab PO Q4H PRN PRN Reason: Pain, Moderate (4-6) Last Admin: 07/08/16 13:16 Dose: 1 tab Simvastatin (Zocor) 20 mg PO QHS TYRELL Last Admin: 07/07/16 21:45 Dose: 20 mg Review of Systems Constitutional: fatigue, weakness, malaise, no fever, no chills Ears, nose, mouth and throat: no nasal congestion, no nasal discharge, no sinus pressure, no sinus pain Cardiovascular: shortness of breath, dyspnea on exertion, no chest pain Respiratory: cough, shortness of breath, dyspnea on exertion Gastrointestinal: no abdominal pain, no nausea, no vomiting, no diarrhea Genitourinary Male: no dysuria, no hematuria Musculoskeletal: no neck stiffness, no neck pain, no myalgias Integumentary: no rash, no pruritis Neurological: no parathesias, no numbness, no tingling, no headaches Endocrine: no cold intolerance, no heat intolerance Hematologic/Lymphatic: no easy bruising, no easy bleeding Allergic/Immunologic: no urticaria, no wheezing Physical Examination Vital Signs Temp Pulse Resp BP Pulse Ox 97.8 F 103 H 20 149/97 99 07/02/16 18:39 07/02/16 18:39 07/02/16 18:39 07/02/16 18:39 07/02/16 18:39 General appearance: no acute distress HEENT: Positive: Normocephaly, Mucus Membranes Moist Neck: Positive: neck supple, trachea midline Cardiac: Positive: Reg Rate and Rhythm, S1/S2 Lungs: Positive: Decreased Breath Sounds (bilateral bases) Neuro: Positive: Grossly Intact Abdomen: Positive: Soft, Active Bowel Sounds. Negative: Tender Skin: Positive: Clear. Negative: Rash Extremities: Present: normal. Absent: edema Results 07/06/16 17:00 07/05/16 10:05 - Imaging and Cardiology Echo: report reviewed (06/2016: EF 40-45%, abnormal diastolic function, mild AR, left atrial myxoma) EKG interpretations - Telemetry EKG Rhythm: Sinus Rhythm Assessment and Plan Left pleural effusion s/p thoracentesis clinically improving EF 40-45%, abnormal diastolic function, mild AR, left atrial myxoma--> KIRK once pt. is clinically stable, may be done as an outpatient. Cardiomyopathy EF 40-45% currently euvolemic continue lasix add coreg 3.125mg BID Pneumonia continue abx. Left breast cancer s/p mastectomy Hypertension Hyperlipidemia Anemia Echo revealed EF 40-45%, abnormal diastolic function, mild AR, left atrial myxoma. May consider KIRK when patient is clinically stable, this may be done as an outpatient. The patient has been seen in conjunction with Dr. Bryson who agrees with the assessment and plan of care. Thank you Dr. Calloway for allowing us to participate in the care of this patient.
[2016-07-08] MEDS: ZOCOR PO SCH (21:45)
[2016-07-08] MEDS: COREG PO SCH (21:47)
[2016-07-08] MEDS: LOVENOX SUB-Q SCH (21:47)
[2016-07-09] MEDS: ZOSYN/NS 4.5GM/100ML 100 ML IV SCH ×2 (05:33→13:06)
[2016-07-09 05:41] LABS: Hematocrit 36.4 % (35.5-45.6); Hemoglobin 12.2 gm/dl (11.8-15.2); Mean Corpuscular HGB Conc 33 % (32-34); Mean Corpuscular Hemoglobin 29 pg (28-32); Mean Corpuscular Volume 87 fl (84-94); Platelet Count 196 K/mm3 (140-440); Red Blood Count 4.21 M/mm3 (3.65-5.03); White Blood Count 4.9 K/mm3 (4.5-11.0)
[2016-07-09 05:43] LABS: Red Cell Distribution Width 26.6 % (13.2-15.2)
[2016-07-09 05:56] LABS: BUN/Creatinine Ratio 17.77; Blood Urea Nitrogen 16 mg/dL (9-20); Calcium 8.5 mg/dL (8.4-10.2); Carbon Dioxide 35 mmol/L (22-30); Chloride 92.6 mmol/L (98-107); Glucose 96 mg/dL (75-100); Potassium 3.2 mmol/L (3.6-5.0); Sodium 138 mmol/L (137-145)
[2016-07-09 06:20] LABS: Anion Gap 14 mmol/L
[2016-07-09] MEDS: LASIX IV SCH (09:47)
[2016-07-09] MEDS: HALFPRIN EC PO SCH (09:47)
[2016-07-09] MEDS: NEURONTIN PO PRN (09:47)
[2016-07-09] MEDS: LEXAPRO PO SCH (09:47)
[2016-07-09] MEDS: COREG PO SCH (09:48)
--- NOTE | 2016-07-09 10:46 | Discharge Summary ---
Providers - Providers Date of Admission: 07/03/16 10:26 Date of discharge: 07/09/16 Attending physician: SONDRA CAM MD 07/03/16 20:03 Consult to Physician [CONS] Routine Consulting Provider: WYATT MILLARD Reason For Exam: Pleural effusion Place consult to:: Dr. Millard Notified:: Lauryn HAMILTON Phone number called:: Was contact made?: Yes If yes, spoke with:: Nasreen service Time called:: 09:22 07/04/16 09:01 Physical Therapy Evaluation and Treat [CONS] Routine Comment: Reason For Exam: eval & treat 07/04/16 09:02 Occupational Therapy Evaluate and Treat [CONS] Routine Comment: Reason For Exam: eval & treat/ deconditioned 07/08/16 13:38 Consult to Physician [CONS] Routine Consulting Provider: ZULLY CASTELLANOS Reason For Exam: Atrial myxoma Place consult to:: Dr. Maki Castellanos Notified:: ghada Time called:: 15:16 Primary care physician: LAB TECH Hospitalization Condition: Stable Hospital course: Patient is a 71-year-old man with a history of left breast cancer status post mastectomy, left pleural effusion, pneumonia who discharged here 2 weeks ago who developed progressive shortness of breath noted on admission patient was started on IV antibiotics for bacterial pneumonia. he did have an echocardiogram done which showed an EF of 40-45%. He also had a paracentesis done which showed transudative fluids. There was concern for left atrial myxoma radiology was consulted and they recommended an outpatient follow-up and evaluation of the time. Patient remained euvolemic respiratory status improved and is currently stable for discharge. Discharge diagnosis 1. Pleural effusion status post thoracentesis, 2. Bacterial pneumonia 3. Left breast cancer 4. Anemia of chronic disease, chronic and stable 5. Cardiomyopathy EF 40-45% 6. Left breast cancer s/p mastectomy 7. Hypertension 8. Hyperlipidemia 9. Debility Disposition: DC/TX SNF W [facility] CERT Time spent for discharge: 35 mins Core Measure Documentation - Palliative Care Palliative Care/ Comfort Measures: Not Applicable - Core Measures Any of the following diagnoses?: none - VTE Discharge Requirements Deep Vein Thrombosis/Pulmonary Embolism Present on Admission: No Exam - Physical Exam Narrative exam: General appearance: Present: no acute distress, well-nourished, other (bedbound , unable to move ambulates) - EENT Eyes: Present: PERRL ENT: hearing intact, clear oral mucosa - Neck Neck: Present: supple, normal ROM - Respiratory Respiratory effort: normal Respiratory: bilateral: Clear - Cardiovascular Heart Sounds: Present: S1 & S2. Absent: rub, click - Extremities Extremities: pulses symmetrical, No edema Peripheral Pulses: within normal limits - Abdominal General gastrointestinal: Present: soft, non-tender, non-distended, normal bowel sounds Male genitourinary: Present: normal - Integumentary Integumentary: Present: clear, warm, dry - Musculoskeletal Musculoskeletal: gait normal, strength equal bilaterally - Psychiatric Psychiatric: appropriate mood/affect, intact judgment & insight - Neurologic Neurologic: CNII-XII intact, moves all extremities - Constitutional Vitals: Temp Pulse Resp BP Pulse Ox 97.9 F 83 20 143/80 92 07/09/16 08:29 07/09/16 09:48 07/09/16 09:51 07/09/16 09:48 07/09/16 08:29 Plan Activity: advance as tolerated, fall precautions Special Instructions: record daily weights, record daily BP diary Follow up with: PRIMARY CARE, [Primary Care Provider] - 3-5 Days ZULLY CASTELLANOS MD [Staff Physician] - 7 Days DEB PIERRE MD [Staff Physician] - 7 Days Prescriptions: LORazepam [Ativan] 1 mg PO BID PRN #30 tablet PRN Reason: Anxiety Carvedilol [Coreg] 3.125 mg PO BID #60 tablet Furosemide [Lasix] 20 mg PO QDAY #30 tablet oxyCODONE /ACETAMINOPHEN [Percocet 5/325 mg] 1 tab PO Q4H PRN #20 tablet PRN Reason: Pain, Moderate (4-6)
[2016-07-09] MEDS: PERCOCET 5/325 PO PRN (11:30)
[2016-07-09] MEDS: K-DUR PO SCH ×2 (11:31→12:34)
--- NOTE | 2016-07-09 12:13 | Progress Note ---
Assessment and Plan Left pleural effusion s/p thoracentesis clinically improving EF 40-45%, abnormal diastolic function, mild AR, left atrial myxoma--> KIRK once pt. is clinically stable, may be done as an outpatient Cardiomyopathy EF 40-45% currently euvolemic continue lasix, coreg 3.125mg BID Pneumonia continue abx. Left breast cancer s/p mastectomy Hypertension Hyperlipidemia Anemia Stable cardiac status. Patient may be discharged from a cardiac standpoint. Follow up in the office in 2 weeks. A KIRK may be considered as an outpatient. The patient has been seen in conjunction with Dr. Bryson who agrees with the assessment and plan of care. Subjective Date of service: 07/09/16 Principal diagnosis: dyspnea, bilateral pleural effusions Interval history: The patient is resting comfortably in bed. No new complaints. Sinus rhythm on the monitor. Objective Last Vital Signs Temp 97.9 F 07/09/16 08:29 Pulse 83 07/09/16 09:48 Resp 20 07/09/16 11:30 BP 143/80 07/09/16 09:48 Pulse Ox 92 07/09/16 08:29 - Physical Examination General: No Apparent Distress HEENT: Positive: Normocephaly, Mucus Membranes Moist Neck: Positive: neck supple, trachea midline Cardiac: Positive: Reg Rate and Rhythm, S1/S2 Lungs: Positive: Decreased Breath Sounds (bilateral bases) Neuro: Positive: Grossly Intact Abdomen: Positive: Soft, Active Bowel Sounds. Negative: Tender Skin: Positive: Clear. Negative: Rash Extremities: Present: normal. Absent: edema - Labs and Meds CBC 07/09/16 Range/Units 05:21 WBC 4.9 (4.5-11.0) K/mm3 RBC 4.21 (3.65-5.03) M/mm3 Hgb 12.2 (11.8-15.2) gm/dl Hct 36.4 (35.5-45.6) % Plt Count 196 (140-440) K/mm3 Comprehensive Metabolic Panel 07/09/16 Range/Units 05:21 Sodium 138 (137-145) mmol/L Potassium 3.2 L D (3.6-5.0) mmol/L Chloride 92.6 L (98-107) mmol/L Carbon Dioxide 35 H D (22-30) mmol/L BUN 16 (9-20) mg/dL Creatinine 0.9 (0.8-1.5) mg/dL Glucose 96 (75-100) mg/dL Calcium 8.5 (8.4-10.2) mg/dL - Imaging and Cardiology Echo: report reviewed (06/2016: EF 40-45%, abnormal diastolic function, mild AR, left atrial myxoma) - Telemetry EKG Rhythm: Sinus Rhythm
[2016-07-09 12:40] VITALS: BP 118/60
== END 2016-07-09 14:20 | DRG 186 ==
LOC: ED 17:53 → 4A 07-03 10:26
PROVIDERS: ADMIT Family Medicine; ATTEND Internal Medicine
PROC: 0W9B30Z Drainage of Left Pleural Cavity with Drainage Device, Percutaneous Approach (ICD-10-PCS; principal; 2016-07-05)
DX: J90 Pleural effusion, not elsewhere classified (principal); J15.9 Unspecified bacterial pneumonia; I42.9 Cardiomyopathy, unspecified; I10 Essential (primary) hypertension; E78.5 Hyperlipidemia, unspecified; R63.4 Abnormal weight loss; R62.7 Adult failure to thrive; D63.8 Anemia in other chronic diseases classified elsewhere; R53.81 Other malaise; Z85.3 Personal history of malignant neoplasm of breast; Z90.49 Acquired absence of other specified parts of digestive tract; Z87.891 Personal history of nicotine dependence; Z92.21 Personal history of antineoplastic chemotherapy; Z68.20 Body mass index [BMI] 20.0-20.9, adult
CPT/HCPCS: 32555; 36415; 71010; 71020; 71260; 80048; 80053; 81001; 82040; 82140; 82962; 83036; 83605; 84160; 85007; 85025; 85027; 85610; 87040; 87116; 88112; 88305; 88341; 88342; 89051; 93306; 94760; 96365; J0360; J0456; J0696; J1650; J1940; J2543; J7050; Q9967